=== PATIENT | male | born 1965 | race Caucasian/White ===

== ENCOUNTER 2016-08-08 02:16 | Emergency (ER) | payer OTHER, MEDICARE ==
[~2016-08-08] VITALS: Ht 157.5 cm; Wt 80.3 kg
--- NOTE | 2016-08-08 02:42 | ED GENERAL ADULT ---
History of Present Illness General Chief Complaint: General Adult Stated Complaint: "I WANT TO GET BLOOD TESTS FOR ALCOHOL AND DRUGS" Source: patient, friend Exam Limitations: no limitations Vital Signs & Intake/Output Vital Signs & Intake/Output Vital Signs Date Time Temp Pulse Resp B/P B/P Pulse O2 O2 Flow FiO2 Mean Ox Delivery Rate 08/08 0221 98.6 103 16 162/113 98 Room Air Allergies Coded Allergies: MDX - Ethanol (Ethanol) (UNKNOWN 04/12/11) ETOH MDX - Oxycodone (OXYCODONE) (MAKES ME WACKY 09/17/11) Triage Note: TRIAGE: PT WAS PULLED OVER TONIGHT AT A DWI CHECK AND WAS GIVEN A TICKET WITH A PROMISE TO APPEAR AND TOLD HE NEEDS PROOF THAT HE HAS NO ETOH OR DRUGS IN HIS SYSTEM. REPORTS OCT 12 1995 WAS HIS LAST DRINK. DENIES ILLICIT DRUG USE. ARRIVES HYPERTENSIVE IN TRIAGE. DENIES HEADACHE Triage Nurses Notes Reviewed? yes HPI: Patient was pulled over at [employer] stop. And failed the field sobriety test. Patient was put on a promise to appear. Patient states that he has not had an alcoholic drink since 1997. Patient presents to the emergency room requesting laboratory work up for drugs and alcohol. Patient states that he did not take his nighttime medications. Patient states that the last time his Depakote level was checked was a few months ago. He denies any headache or blurry vision. There is no nausea or vomiting. Patient has no current complaints. Past History Travel History Traveled to [place] past 21 day No Medical History Any Pertinent Medical History? see below for history Neurological: NONE EENT: NONE Cardiovascular: hypertension, hyperlipidemia Respiratory: NONE Gastrointestinal: NONE Hepatic: NONE Renal: NONE Musculoskeletal: NONE Psychiatric: bipolar disease Endocrine: NONE Blood Disorders: NONE Cancer(s): NONE Surgical History Surgical History: N Psychosocial History Who do you live with Significant Other Services at Home None What is your primary language Azeri Tobacco Use: Never used Family History Hx Contributory? No Review of Systems Review of Systems Constitutional: Reports: no symptoms. EENTM: Reports: no symptoms. Respiratory: Reports: no symptoms. Cardiovascular: Reports: no symptoms. GI: Reports: no symptoms. Genitourinary: Reports: no symptoms. Musculoskeletal: Reports: no symptoms. Skin: Reports: no symptoms. Neurological/Psychological: Reports: no symptoms. Hematologic/Endocrine: Reports: no symptoms. Immunologic/Allergic: Reports: no symptoms. All Other Systems: Reviewed and Negative Physical Exam Physical Exam General Appearance: well developed/nourished, alert, awake Head: atraumatic, normal appearance Eyes: Bilateral: PERRL, EOMI. Ears, Nose, Throat: normal pharynx, normal ENT inspection, hearing grossly normal Neck: normal inspection, supple, full range of motion Respiratory: normal breath sounds, chest non-tender, no respiratory distress, lungs clear Cardiovascular: regular rate/rhythm, normal peripheral pulses Gastrointestinal: normal bowel sounds, soft, non-tender, no organomegaly Back: normal inspection, normal range of motion Extremities: normal inspection, normal capillary refill, normal range of motion, no edema Neurologic/Psych: no motor/sensory deficits, awake, alert, oriented x 3, normal gait, normal mood/affect Skin: intact, normal color, warm/dry Lymphatic: no anterior cervical prabhjot Core Measures ACS in differential dx? No CVA/TIA Diagnosis: No Severe Sepsis Present: No Septic Shock Present: No Progress Differential Diagnoses I considered the following diagnoses in my evaluation of the patient: [Elevated Depakote level, hepatic encephalopathy] Plan of Care: Orders Procedure Date/time Status Add-on Test (ER Only) 08/08 0241 Active AMMONIA 08/08 0241 Complete DEPAKOTE LEVEL 08/08 225 Complete URINE DRUGS OF ABUSE 08/09 219 Complete ETHANOL 08/09 219 Complete Laboratory Tests 08/08/16 0248: Ammonia 28 08/08/16 0229: Urine Opiates Screen < 100.00, Methadone Screen < 40, Barbiturate Screen < 60, Ur Phencyclidine Scrn < 6.00, Amphetamines Screen 234, U Benzodiazepines Scrn < 85, Urine Cocaine Screen < 50, Urine Cannabis Screen < 5.00 08/08/16 0226: Valproic Acid 41.6 L, Serum Alcohol < 10.0 Initial ED EKG: none Departure Departure Disposition: HOME OR SELF CARE Condition: Stable Clinical Impression Primary Impression: Normal exam Secondary Impressions: Hypertension Referrals: KALANI KENNY APRN (PCP/Family) Additional Instructions: RETURN FOR ANY CONCERNS Departure Forms: Customer Survey General Discharge Information Critical Care Note Critical Care Note Critical Care Time: non-applicable
[2016-08-08 03:49] VITALS: BP 148/77
== END 2016-08-08 03:52 ==
LOC: ERH 02:16
DX: I10 Essential (primary) hypertension (principal); Z02.83 Encounter for blood-alcohol and blood-drug test
CPT/HCPCS: 80307; G0480

== ENCOUNTER 2017-05-29 13:54 | Emergency (ER) | payer OTHER, MEDICARE ==
[~2017-05-29] VITALS: Ht 157.5 cm; Wt 77.1 kg
[2017-05-29 14:18] VITALS: BP 136/92
--- NOTE | 2017-05-29 14:43 | ED GENERAL ADULT ---
History of Present Illness General Chief Complaint: General Adult Stated Complaint: MED REFILL Source: patient, old records Exam Limitations: no limitations Vital Signs & Intake/Output Vital Signs & Intake/Output Vital Signs Date Time Temp Pulse Resp B/P B/P Pulse O2 O2 Flow FiO2 Mean Ox Delivery Rate 05/29 1418 96.0 91 18 136/92 97 Room Air Allergies Coded Allergies: MDX - Ethanol (Ethanol) (UNKNOWN 04/12/11) ETOH MDX - Oxycodone (OXYCODONE) (MAKES ME WACKY 09/17/11) Triage Note: REQUESTING MED RE-FILL. DEPAKOTE 500 MG ER. Triage Nurses Notes Reviewed? yes Onset: Abrupt Duration: day(s): (2), constant, continues in ED Timing: single episode today Injury Environment: home Severity: mild, moderate No Modifying Factors: none HPI: 52-year-old male past medical history of hypertension and lipidemia bipolar disorder presents for a medication refill. Patient states that he ran out of his Depakote 1000 mg extended release that he takes once daily. His last dose was Tuesday so he missed one dose last night. He states that he has been in process of getting a hold of his doctor for refill but is been unable to contact them today because they are close on the weekends. He is requesting a dose be given to him today. He denies any suicidal or homicidal ideation. No paranoia or delusions. No hallucinations. He states his other medications as directed. Past History Travel History Traveled to [place] past 21 day No Medical History Any Pertinent Medical History? see below for history Neurological: NONE EENT: NONE Cardiovascular: hypertension, hyperlipidemia Respiratory: NONE Gastrointestinal: NONE Hepatic: NONE Renal: NONE Musculoskeletal: NONE Psychiatric: bipolar disease Endocrine: NONE Blood Disorders: NONE Cancer(s): NONE Surgical History Surgical History: N Psychosocial History Who do you live with Significant Other Services at Home None What is your primary language Lebanese Tobacco Use: Current Daily Use Daily Tobacco Use Amount/Type: => 5 Cigarettes daily Family History Hx Contributory? No Review of Systems Review of Systems Constitutional: Reports: no symptoms. EENTM: Reports: no symptoms. Respiratory: Reports: no symptoms. Cardiovascular: Reports: no symptoms. GI: Reports: no symptoms. Genitourinary: Reports: no symptoms. Musculoskeletal: Reports: no symptoms. Skin: Reports: no symptoms. Neurological/Psychological: Reports: no symptoms. Hematologic/Endocrine: Reports: no symptoms. Immunologic/Allergic: Reports: no symptoms. All Other Systems: Reviewed and Negative Physical Exam Physical Exam General Appearance: well developed/nourished, no apparent distress, alert, awake Head: atraumatic, normal appearance Eyes: Bilateral: normal appearance, PERRL, EOMI. Ears, Nose, Throat: normal pharynx, normal ENT inspection, hearing grossly normal Neck: normal inspection, supple, full range of motion Respiratory: normal breath sounds, chest non-tender, no respiratory distress, lungs clear Cardiovascular: regular rate/rhythm, normal peripheral pulses Peripheral Pulses: 2+ radial (R), 2+ radial (L) Gastrointestinal: soft, non-tender Back: normal inspection, normal range of motion Extremities: normal inspection, normal range of motion, no edema Neurologic/Psych: no motor/sensory deficits, awake, alert, oriented x 3, normal gait Skin: intact, normal color, warm/dry Lymphatic: no anterior cervical prabhjot Core Measures ACS in differential dx? No CVA/TIA Diagnosis: No Sepsis Present: No Sepsis Focused Exam Completed? No Progress Differential Diagnoses I considered the following diagnoses in my evaluation of the patient: [ Medication refill, bipolar disorder] Plan of Care: Current Medications Sig/Mary Start time Last Medication Dose Stop Time Status Admin Divalproex Sodium 1,000 MG ONCE ONE 05/29 144 UNVr (Depakote ER) 05/29 1446 Patient seen and evaluated. He reports he missed one dose of Depakote. He'll be given a dose in the ER. He declines additional prescription because he states he has no money to pay for it. Advised him to follow-up with his doctor tomorrow to get additional refills. Discussed return precautions patient agrees the plan. Initial ED EKG: none Departure Departure Disposition: HOME OR SELF CARE Condition: Stable Clinical Impression Primary Impression: Medication refill Referrals: Dayton Hurley APRN (PCP/Family) Additional Instructions: Follow-up with [facility] psychiatrist as soon as possible. Monitor symptoms return with any concerns Departure Forms: Customer Survey General Discharge Information Critical Care Note Critical Care Note Critical Care Time: non-applicable
== END 2017-05-29 14:54 ==
LOC: ERH 13:54
DX: Z76.0 Encounter for issue of repeat prescription (principal)
CPT/HCPCS: 99281

== ENCOUNTER 2017-07-15 08:48 | Inpatient (IN) | payer OTHER, MEDICARE ==
[~2017-07-15] VITALS: Ht 154.9 cm; Wt 72.1 kg
--- NOTE | 2017-07-15 10:45 | ED PSYCHIATRIC COMPLAINT ---
History of Present Illness General Chief Complaint: Psychiatric Related Complaint Stated Complaint: "I was told I need an evaluation" Source: patient, old records Exam Limitations: no limitations Vital Signs & Intake/Output Vital Signs & Intake/Output Vital Signs Date Time Temp Pulse Resp B/P B/P Pulse O2 O2 Flow FiO2 Mean Ox Delivery Rate 07/15 1427 98.2 95 20 139/92 98 Room Air 07/15 1123 97.8 96 20 143/92 98 Room Air 07/15 0856 97.8 113 20 157/91 99 Room Air Allergies Coded Allergies: oxycodone (MAKES ME WACKY 07/15/17) Uncoded Allergies: ETHANOL (UNKNOWN 07/15/17) Reconcile Medications Amlodipine Besylate 5 MG TABLET 1 TAB PO DAILY HEART (Reported) Divalproex Sodium (Divalproex Sodium ER) 500 MG TAB.ER.24H 2 TAB PO QPM MOOD STABILITY (Reported) Fenofibrate Nanocrystallized (Fenofibrate) 145 MG TABLET 1 TAB PO DAILY CHOLESTEROL (Reported) Hydrochlorothiazide 50 MG TABLET 1 TAB PO DAILY BP (Reported) Montelukast Sodium 10 MG TABLET 1 TAB PO DAILY ALLERGIES (Reported) Risperidone 2 MG TABLET 1 TAB PO BID MENTAL HEALTH (Reported) Triage Note: PT PRESENTS TO ER FROM [facility] STATING HE WAS THERE TO GET "SOME BUSINESS TAKEN CARE OF" THE PROVIDER THERE FELT "THAT MY MEDS WERE OFF AND SENT ME HERE. I DON'T AGREE I FEEL FINE." PT DENIES FEELING SI OR HI. PT STATES I HAVE BEEN COMPLAINT WITH MY MEDS BUT THE LADY I SAW AT [facility]ARE FELT I NEEDED TO COME IN FOR HELP AND GET EVALUATED. PT DENIES FEELING DEPRESSED OR HAVING ANY COMPLAINTS. Triage Nurses Notes Reviewed? yes Onset: Just prior to arrival Duration: continues in ED Timing: recent history Severity: mild Associated Symptoms: anxiety HPI: Patient reports increased stressors over the last 2 weeks with of his father and his common-law . Prior to admission he was referred by [facility] for psychiatric evaluation. He denies fever chills nausea vomiting diarrhea abdominal pain chest pain shortness breath headache dysuria rash bleeding suicidal ideation homicidal ideation hallucination anorexia insomnia anhedonia. Past History Travel History Traveled to [place] past 21 day No Medical History Any Pertinent Medical History? see below for history Neurological: NONE EENT: NONE Cardiovascular: hypertension, hyperlipidemia Respiratory: NONE Gastrointestinal: NONE Hepatic: NONE Renal: NONE Musculoskeletal: NONE Psychiatric: bipolar disease Endocrine: NONE Blood Disorders: NONE Cancer(s): NONE Surgical History Surgical History: N Psychosocial History Who do you live with Significant Other Services at Home None What is your primary language Rwandan Tobacco Use: Current Daily Use Daily Tobacco Use Amount/Type: => 5 Cigarettes daily ETOH Use: denies use Illicit Drug Use: denies illicit drug use Family History Hx Contributory? No Review of Systems Review of Systems Constitutional: Reports: no symptoms. EENTM: Reports: no symptoms. Respiratory: Reports: no symptoms. Cardiovascular: Reports: no symptoms. GI: Reports: no symptoms. Genitourinary: Reports: no symptoms. Musculoskeletal: Reports: no symptoms. Skin: Reports: no symptoms. Neurological/Psychological: Reports: see HPI, anxiety. Hematologic/Endocrine: Reports: no symptoms. Immunologic/Allergic: Reports: no symptoms. All Other Systems: Reviewed and Negative Physical Exam Physical Exam General Appearance: well developed/nourished, alert, awake, anxious, comfortable Head: atraumatic, normal appearance Eyes: Bilateral: normal appearance, PERRL, EOMI. Ears, Nose, Throat: normal pharynx, normal ENT inspection, hearing grossly normal Neck: normal inspection, supple, full range of motion, no midline tenderness Respiratory: normal breath sounds, chest non-tender, no respiratory distress, quiet respiration, lungs clear Cardiovascular: regular rate/rhythm, normal peripheral pulses, norml femoral pulses equa Gastrointestinal: normal bowel sounds, soft, non-tender, no organomegaly Extremities: normal range of motion, no ligament instability Neurological/Psychiatric: no motor/sensory deficits, awake, alert, anxious, tinter photograph II-XII nml as tested, oriented x 3 Appearance/Memory/Insight: disheveled Behavoir/Eye Contact/Speech: cooperative, increased rate of speech, good eye contact Thoughts/Hallucinations: no apparent hallucination Skin: intact, normal color, warm/dry SAD PERSONS Done? patient not suicidal Progress Differential Diagnosis: drug intoxication, drug overdose, drug withdrawal, electrolyte abnormality, hypoglycemia Plan of Care: Orders Procedure Date/time Status VALPROIC ACID 07/18 0600 Active POTASSIUM 07/16 0600 Active Regular Diet 07/15 L Complete Regular Diet 07/15 D Active Lab Add-on Test 07/15 1540 Active Lab Add-on Test 07/15 1539 Active Lab Add-on Test 07/15 1537 Active Patient Data - inpatient psych 07/15 1529 Active Admit to inpatient psych 07/15 1529 Active Add-on Test (ER Only) 07/15 1302 Active DEPAKOTE LEVEL 07/15 1145 Complete AMYLASE 07/15 1145 Complete URINE DRUG SCREEN FOR ER ONLY 07/15 1034 Complete ETHANOL 07/15 1034 Complete COMPREHENSIVE METABOLIC PANEL 07/15 1034 Complete CBC WITHOUT DIFFERENTIAL 07/15 1034 Complete ED CRISIS PSYCH CONSULT 07/15 1034 Active Vital Signs 07/15 UNK Active Nursing Misc 07/15 UNK Active Alternative Nursing Therapy 07/15 UNK Active Activity/Ambulation 07/15 UNK Active Current Medications Sig/Mary Start time Last Medication Dose Stop Time Status Admin Amlodipine Besylate 5 MG DAILY 07/16 09 UNVr (Norvasc) Fenofibrate 145 MG DAILY 07/16 899 UNVr (Tricor) Hydrochlorothiazide 50 MG DAILY 07/16 899 UNVr (Hydrodiuril) Risperidone 2 MG DAILY 07/16 899 UNVr (Risperidone) Divalproex Sodium 1,000 MG AT BEDTIME 07/15 2100 UNVr (Depakote ER) Montelukast Sodium 10 MG AT BEDTIME 07/15 2100 UNVr (Singulair) Risperidone 3 MG AT BEDTIME 07/15 2100 UNVr (risperiDONE) Acetaminophen 650 MG Q6P PRN 07/15 1530 UNVr (Tylenol) Al Hydroxide/Mg 30 ML Q4-6 PRN PRN 07/15 1530 UNVr Hydroxide (Maalox Plus) Benztropine Mesylate 1 MG Q6P PRN 07/15 1530 UNVr (Cogentin 1 MG Tablet) Benztropine Mesylate 1 MG Q6P PRN 07/15 1530 UNVr (Cogentin) Gabapentin 300 MG Q6P PRN 07/15 1530 UNVr (Neurontin) Haloperidol 5 MG Q6P PRN 07/15 1530 UNVr (Haldol) Haloperidol 5 MG Q6P PRN 07/15 1530 UNVr (Haldol) Lorazepam 2 MG Q6P PRN 07/15 1530 UNVr (Ativan) Magnesium Hydroxide 30 ML AT BEDTIME PRN 07/15 1530 UNVr (Milk Of Magnesia) Trazodone HCl 50 MG AT BEDTIME NEED.. 07/15 1530 UNVr (Desyrel) Laboratory Tests 07/15/17 1145: Anion Gap 14, Estimated GFR > 60, BUN/Creatinine Ratio 7.0, Glucose 119 H, Calcium 10.7 H, Total Bilirubin 0.4, AST 52, ALT 42, Alkaline Phosphatase 46, Total Protein 7.4, Albumin 4.5, Globulin 2.9, Albumin/Globulin Ratio 1.6, Amylase 69, CBC w Diff NO MAN DIFF REQ, RBC 4.97, MCV 85.0, MCH 29.6, MCHC 34.8, RDW 13.7, MPV 8.7, Gran % 64.7, Lymphocytes % 24.4, Monocytes % 7.5, Eosinophils % 2.7, Basophils % 0.7, Absolute Granulocytes 5.0, Absolute Lymphocytes 1.9, Absolute Monocytes 0.6, Absolute Eosinophils 0.2, Absolute Basophils 0.1, Valproic Acid 24.0 L, Serum Alcohol < 10.0 07/15/17 1039: Urine Opiates Screen < 100, Methadone Screen < 40, Barbiturate Screen < 60, Ur Phencyclidine Scrn < 6.00, Amphetamines Screen < 100, U Benzodiazepines Scrn < 85, Urine Cocaine Screen < 50, Urine Cannabis Screen < 5.00 Departure Departure Time of Disposition: 1722 Disposition: STILL A PATIENT Condition: Fair Clinical Impression Primary Impression: Bipolar disorder current episode depressed Referrals: Dayton Hurley APRN (PCP/Family) Departure Forms: Customer Survey General Discharge Information Psych Admission Note Psychiatric Admission: I have seen and evaluated MAYNOR LOU. I have also reviewed all the pertinent lab results and diagnostic results. MAYNOR LOU will be admitted to our inpatient Psychiatric unit for treatment and care.
[2017-07-15] MEDS ORDERED: HYDROCHLOROTHIA50 M1 PO (10:48)
[2017-07-15] MEDS ORDERED: DIVALPROEX SOD500 M3 PO (10:49)
[2017-07-15] MEDS ORDERED: AMLODIPINE BESYL5 M1 PO (10:49)
[2017-07-15] MEDS ORDERED: FENOFIBRATE145 M1 PO (10:49)
[2017-07-15] MEDS ORDERED: MONTELUKAST SOD10 M1 PO (10:49)
[2017-07-15] MEDS ORDERED: RISPERIDONE2 M1 PO (10:50)
[2017-07-15 11:52] LABS: ABSOLUTE BASOPHIL COUNT 0.1 /CUMM (0.0-0.2); ABSOLUTE EOSINOPHIL COUNT 0.2 /CUMM (0.0-0.7); ABSOLUTE LYMPH COUNT 1.9 /CUMM (1.2-3.4); ABSOLUTE MONOCYTE COUNT 0.6 /CUMM (0.10-0.60); BASOPHIL % 0.7 % (0.0-2.0); EOSINOPHIL % 2.7 % (0-5); GRANULOCYTE % 64.7 % (42.2-75.2); HEMATOCRIT 42.2 % (42-52); MEAN CORPUSCULAR HGB 29.6 PG (27.0-31.0); MEAN CORPUSCULAR HGB CONC 34.8 G/DL (33.0-37.0); MEAN PLATELET VOLUME 8.7 FL (7.4-10.4); PLATELET COUNT 343 /CUMM (130-400); RBC DISTRIBUTION WIDTH 13.7 % (11.5-14.5); RED BLOOD CELL CT 4.97 /CUMM (4.70-6.10); WHITE BLOOD CELL COUNT 7.8 /CUMM (4.8-10.8)
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
[2017-07-15 20:42] VITALS: BP 126/79
[2017-07-16 08:56] VITALS: BP 128/89
--- NOTE | 2017-07-16 10:52 | CPS PROVIDER INIT ASMT PSYCH ---
Psychiatric Admission Lacing Operator's Note Reviewed: Yes Patient Seen and Examined: Yes Identifying Information: 52yoM with hx of bipolar disorder Chief Complaint: "the world at large is not too great....I need to be free" Reaction to Hospitalization: positive History of Present Illness Onset of Illness: years ago Circumstances Leading to Admission: medication noncompliance Problem(s) Justifying Need for Admission: worsening mood Other HPI: Pt could not give a coherent account of circumstances leading up to admission. He believes that "someone" thinks he is acting strangely but disagrees. Very focused on "bag of pills" that is somewhere in the hospital as well as seasonal allergies. Denies SI or HI. Past Psychiatric History Past Diagnosis(es)- if any: Bipolar disorder Past Precipitating Factors- if any: medication noncompliance - Include inpatient and outpatient treatment Treatment History: multiple inpt hospitalizations History of Suicide Attempts or Gestures "many times" per pt Substance Abuse History: Tobacco: smokes 16oz tobacco daily, rolls own Alcohol: "not for years" Illicits: mj, cocaine, heroin "in the 80s" Allergies: Coded Allergies: oak (Severe, ANAPHYLAXIS 07/15/17) tree and shrub pollen (Severe, DIFFICULTY BREATHING 07/15/17) oxycodone (MAKES ME WACKY 07/15/17) Uncoded Allergies: ETHANOL (UNKNOWN 07/15/17) Home Med List: see H&P - Include any medical condition(s) that may - impact the patient's recovery/remission Past Medical History: see H&P Past History Medical History Neurological: NONE EENT: allergies Cardiovascular: hypertension, hyperlipidemia Respiratory: CIGARETTE SMOKER Gastrointestinal: NONE Hepatic: NONE Renal: NONE Musculoskeletal: chronic back pain, osteoarthritis Psychiatric: alcohol dependence, bipolar disease Endocrine: NONE Blood Disorders: NONE Cancer(s): NONE 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 History of MRSA: No History of VRE: No History of CDIFF: No Isolation History: Standard Surgical History Surgical History: non-contributory Psychiatric Family/Social Hx Family History Psychiatric Illness: pt adopted Substance Use: adopted Suicides: adopted Social History Living Situation: lives with mother Significant Relationships (family/friends): ?mother Education: HS graduate Vocation/Occupation: disabled/unemployed Legal: denied current Healthly Behaviors Screening Tobacco Screening Tobacco Use from ED Docu: Current Daily Use Daily Tobacco Use Amount/Type: => 5 Cigarettes daily - If tobacco counseling indicated - the following topics are required. - #1 Recognizing dangerous situations. - #2 Coping Skills. - #3 Basic information about quitting. Status of Tobacco Cessation Counseling: #1, #2 AND #3 Completed Cessation Med Status Nicotine Patch Ordered (pt notes may refuse patch) Alcohol Screening - ETOH screen POS if BAL >=80 or Audit-C>= M4/F3 Audit-C Score from Diag Assess: 0 Blood Alcohol Level: Laboratory Tests 07/15 1145 Toxicology Serum Alcohol (<10 MG/DL) < 10.0 Alcohol Use Screening Results: Neg per Audit C &/or BAL - If ETOH counseling indicated - the following topics are required. - #1 Express concern about the patient's - drinking at unhealthy levels, include informing - of national norms for moderate drinking: - men <= 14 drinks/week, max 4 drinks/occasion - women <= 7 drinks/week, max 3 drinks/occasion - #2 Providing feedback, including linking alcohol to - negative physical effects (liver injury, hypertension) - negative emotional effects (relationship problems and - depression) - negative occupational consequences (reduced work - performance) - #3 Advising the patient to abstain from alcohol or - to drink below national norms for moderate drinking - (as listed above). Status of ETOH Use Counseling: N/A B/C NO ETOH Use Metabolic Screening - Screen if on a Neuroleptic Medication - Metabolic screening should include: - Blood Pressure, BMI, Glucose or Hgb A1c, & a - Lipid profile from within the past 365 days. Metabolic Screening Laboratory Tests 07/16 07/15 07/15 0614 1145 1039 Chemistry Sodium (137 - 145 mmol/L) 144 Potassium (3.5 - 5.1 mmol/L) 3.3 L 3.2 L Chloride (98 - 107 mmol/L) 102 Carbon Dioxide (22 - 30 mmol/L) 28 Anion Gap (5 - 16) 14 BUN (9 - 20 mg/dL) 7 L Creatinine (0.7 - 1.2 mg/dL) 1.0 Estimated GFR (>60 ml/min) > 60 BUN/Creatinine Ratio (7 - 25 %) 7.0 Glucose (65 - 99 mg/dL) 119 H Calcium (8.4 - 10.2 mg/dL) 10.7 H Total Bilirubin (0.2 - 1.3 mg/dL) 0.4 AST (17 - 59 U/L) 52 ALT (21 - 72 U/L) 42 Alkaline Phosphatase (< 127 U/L) 46 Total Protein (6.3 - 8.2 g/dL) 7.4 Albumin (3.5 - 5.0 g/dL) 4.5 Globulin (1.9 - 4.2 gm/dL) 2.9 Albumin/Globulin Ratio (1.1 - 2.2 %) 1.6 Amylase (30 - 110 U/L) 69 Hematology CBC w Diff NO MAN DIFF REQ WBC (4.8 - 10.8 /CUMM) 7.8 RBC (4.70 - 6.10 /CUMM) 4.97 Hgb (14.0 - 18.0 G/DL) 14.7 Hct (42 - 52 %) 42.2 MCV (80.0 - 94.0 FL) 85.0 MCH (27.0 - 31.0 PG) 29.6 MCHC (33.0 - 37.0 G/DL) 34.8 RDW (11.5 - 14.5 %) 13.7 Plt Count (130 - 400 /CUMM) 343 MPV (7.4 - 10.4 FL) 8.7 Gran % (42.2 - 75.2 %) 64.7 Lymphocytes % (20.5 - 51.1 %) 24.4 Monocytes % (1.7 - 9.3 %) 7.5 Eosinophils % (0 - 5 %) 2.7 Basophils % (0.0 - 2.0 %) 0.7 Absolute Granulocytes (1.4 - 6.5 /CUMM) 5.0 Absolute Lymphocytes (1.2 - 3.4 /CUMM) 1.9 Absolute Monocytes (0.10 - 0.60 /CUMM) 0.6 Absolute Eosinophils (0.0 - 0.7 /CUMM) 0.2 Absolute Basophils (0.0 - 0.2 /CUMM) 0.1 Toxicology Urine Opiates Screen (>2000 NG/ML) < 100 Methadone Screen (>300 NG/ML) < 40 Barbiturate Screen (>200 NG/ML) < 60 Valproic Acid (50 - 120 ug/mL) 24.0 L Ur Phencyclidine Scrn (>25 NG/ML) < 6.00 Amphetamines Screen (>1000 NG/ML) < 100 U Benzodiazepines Scrn (>200 NG/ML) < 85 Urine Cocaine Screen (>300 NG/ML) < 50 Urine Cannabis Screen (>50 NG/ML) < 5.00 Serum Alcohol (<10 MG/DL) < 10.0 Exam and Plan Mental Status Examination Ambulation Status: walking freely Appearance: dishelved Attitude towards examiner: hostile Psychomotor activity: + agitation Behavior: uncooperative for most of interview Quality of speech: nl r/r/s/p Affect: extremely irritable, labile, inapp Mood: "nothing is wrong with me!" Suicidal Ideation: denied Homicidal Ideation: denied Hallucinations: denied Paranoid/Delusional Material: ++ around meds Difficulties with thought organization: bizzare, disorganized Insight: very poor Judgment: very poor Orientation: a/o x4 Cognition: grossly intact Memory Function: grossly intact Estimate of intellectual functioning: below average/average Assets/Strengths Patient Identified Assets/Strengths: able to communicate, ?some family support Impression/Plan Impression and Plan: Pt with long hx of bipolar disorder now with decompensation in the setting of medication noncompliance. - Include all active medical diagnosis that require tx DSM 5 Diagnosis(es): Bipolar disorder - Initial Tx Plan for Active Psych & Medical Conditions Treatment Plan: Increased risperidone to 2mg in the morning and 3mg at bedtime, pt is in agreement with this Increase depakote ER to 1250mg Started loratidine for seasonal allergies For hypokalemia, pt refusing med at this time, wants to eat bananas instead, will recheck K at AM; pt at home eats bananas to manage his chronic hypolamemia. - Factors that would help patient function - in a less restrictive setting. Factors: medication compliance
[2017-07-16 12:24] VITALS: BP 140/69
--- NOTE | 2017-07-16 15:06 | SOCIAL WORKER SOCIAL HX PSYCH ---
Social History Basic Assessment Insurance Authorization: Insurance #1: Insurance name: MEDICARE A Phone number: Policy number: [id number] Group number: Authorization number: Curr Source of Income/Entitlements: [facility] Primary Care Physician: Patient's PCP: Dayton Hurley APRN PCP's Present Problem: Present problem taken from [facility] on 07/15/17: Patient is a 52 year old unmarried male who was coaxed to come to [facility] on his own, following a discussion with his counselor, Adrianne Persaud, at [facility] this morning. Patient had seen same counselor earlier in week, and counselor indicated that patient was " acting extremely paranoid and guarded, and stating that government was going to use his social security money, and he would not get his monthly check". Patient stated that he "was tricked into coming here" to the hospital. He seemed angry with [facility], and insists that he is doing fine. Patient presents as very pressured and mildly irritable, but trying to be cooperative. Patient reports that he has had considerable stress lately as his father 2 weeks ago; his common law of 20 years within the past year, and he has to move yet again as his mother will be needing 24 hour care and will require placement. Patient is hopeful that he will obtain housing from [employer], but stated that they "were playing games" with him, and saying his application was sent in too late. Patient is very guarded and suspicious. Patient was very pre-occupied with getting his social security check, and appeared to think that there was a plan that would stop him from getting his check. Patient reportedly had been doing fairly well until recently. [facility] report that his sister had let them know that he has been seen sitting and staring watchfully in his car. Family is reportedly concerned about him. Patient's sister states that patient seems to have problems at about this time of year, and that he becomes very unpredictable. Patient is living with 90 year old mother who has Parkinson, and mother is fearful about patient's unpredictability. Sister states that patient has been obsessing about getting sufficient gasoline and batteries to be prepared, and she maintainds that these behaviors are beginning of decompensation, and this has often resulted in injury as patient resists help. Patient has been calling sister at all hours, even at 1;30 a.m. to state that he was going to check on his mother. Behavior has been disorganized. Patient was informed that his Depakote level was quite low, and asked if he was interested in having it ordered for him, but patient became upset, insisting that he "was good" and did not want any more of that (medication). Patient is seen for anger management issues at [facility]. he staff there, as well as his sister Do, fear that patient will get angry and hurt himself or someone else by his resistence. 07/16/17 - Crisis met with pt to complete social history. He complained of back pain and was unable to get out of bed, so crisis met with pt in his bedroom. Pt questioned when he would be able to leave and asked "when will my sister be satisfied with my diagnosis?. Pt denies SI/HI at this time. He appeared to be somewhat paranoid and spoke about the government being out to get him. Primary Language? Bruneian Language(s) Spoken At Home: Bruneian Living Situation Rents or Owns Home? rents (lives with mom ) Other Living Arrangement: pt lives with his mother Residential Care/Treatment Fac n/a Feel Safe Where You Are Living Yes Feel Safe in Relationships? Yes Allergies - Coded Allergies: oak (Severe, ANAPHYLAXIS 07/15/17) tree and shrub pollen (Severe, DIFFICULTY BREATHING 07/15/17) oxycodone (MAKES ME WACKY 07/15/17) Uncoded Allergies: ETHANOL (UNKNOWN 07/15/17) Current Medications - Scheduled Medications Amlodipine Besylate 5 MG TABLET 1 TAB PO DAILY HEART #30 (Reported) Entered as Reported by Moris Alfaro on 07/15/17 1049 Divalproex Sodium (Divalproex Sodium ER) 500 MG TAB.ER.24H 2 TAB PO QPM MOOD STABILITY #60 (Reported) Entered as Reported by Moris Alfaro on 07/15/17 1049 Fenofibrate Nanocrystallized (Fenofibrate) 145 MG TABLET 1 TAB PO DAILY CHOLESTEROL #90 (Reported) Entered as Reported by Moris Alfaro on 07/15/17 1049 Hydrochlorothiazide 50 MG TABLET 1 TAB PO DAILY BP #30 (Reported) Entered as Reported by Moris Alfaro on 07/15/17 1048 Montelukast Sodium 10 MG TABLET 1 TAB PO DAILY ALLERGIES #90 (Reported) Entered as Reported by Moris Alfaro on 07/15/17 1049 Risperidone 2 MG TABLET 1 TAB PO BID MENTAL HEALTH #45 (Reported) Entered as Reported by Moris Alfaro on 07/15/17 1050 Last Taken: At an unknown date and time Consequences of Psych Med Use: none reported Past History Past Medical History Neurological: NONE EENT: allergies Cardiovascular: hypertension, hyperlipidemia Respiratory: CIGARETTE SMOKER Gastrointestinal: NONE Hepatic: NONE Renal: NONE Musculoskeletal: chronic back pain, osteoarthritis Psychiatric: alcohol dependence, bipolar disease Endocrine: NONE Blood Disorders: NONE Cancer(s): NONE 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 Primary Childhood Caretakers: father, mother, step-parent (adoptive) Family Life During Childhood: "great, I was blessed with good parents" DCF Involvement? No Mother's Age (Current/): 77 Relationship w/Mother: "good" Father's Age (Current/): 77 () Relationship w/Father: "we didn't talk much, but we loved eachother". Any Sibling(s)? Yes Sibling's Gender(s)/Age(s): male Sibling 1:, male Sibling 2:, female Sibling 3: Relationship w/Sibling(s): "good" Relationship w/Friends: "we go to AA meetings together" Family Psych/Sub Abuse/Add Hx: unknown Abuse/Trauma History Trauma History/Current Trauma: Denies History of Trauma/Abuse Treatment? No Abuse/Trauma Treatment: n/a Legal History Legal Guardian/Address/Phone: n/a Current Legal Status: none Pending Court Dates: none reported Have you ever been arrested Yes Number of Arrests: 6 (reports over 5 arrests) Hx of Juvenile Legal Charges? No Hx of Adult Legal Charges? Yes If Yes: misdemeanor, felony List/Date Most Recent Lgl Chgs: pt unable to identify charges Chgs/Dts/Incarcerations/Sentnc pt reports he was incarcerated 2 years ago and about 20 years ago, before he got sober. Civil Proceedings: none reported Domestic Relations Court: none reported Child Protective Serv Involvmnt none reported. Eviscerator none Psychosocial History Primary Support System: mother Strengths/Capabilities: patient has maintained sobriety for many years, and is active in AA Patient has been stable throughout most of past year. Weaknesses: Pt seems to be a poor historian. Physical Limitations (Interventions): none noted Last Physical: 6 months ago History of Seizures? No History of Blackouts? No ADL Limitations: none reported Sabael/Social/Peer Relations Pt reports his friends are the people to attneds AA meetings with. They enjoy going to meetings together and hanging out after the meetings. Pt also reports he likes fishing and hunting, although reports he cannot huggins anymore because "the government doesnt want me to have a gun". Meaningful Activities: going to AA meetings, hunting, fishing Childhood Buddhism: pt reports he is "very spiritual" but does not identify with a specific faith because "all religions are always at war with eachother" Current Mu-Ism Affiliation: pt reports he is spiritual Is Spirituality Important to You? yes Patient's Ethnicity: (Khmer), Estonian Cultural/Ethnic Issues: none reported Are There Developmental Issues? Yes If Yes, Explain: learning troubles Milestones Achieved: fine motor, gross motor Psychiatric Treatment History Psych Treatment Inpatient Treatment Yes Outpatient Treatment Yes Location of Treatment [facility]; and [facility] Reason for Treatment bipolar disorder Dates of Treatment past 15 years Response to Treatment has needed stabilization at times, and has responded fairly well. 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 Psychodynamic Issues: none reported Risk Factors: high anxiety/distress, history of Violence, poor impulse control, male Substance Use/Abuse History Drug Use/Abuse:Min 12 mo hx Substance Used/Abused Alcohol First Use 19 y o Last Used more than 21 years ago How much used/taken varied How often many times/wk For how long 8-10 years Route of use p.o. Have Had Periods of Sobriety? Yes Explain: Sober 21 years Relapse History? Yes Explain: sober for 21 years Have You Ever Attended AA? Yes Do You Attend AA Currently? Yes Do You Have a Sponsor? Yes Other Community Resources Used: none reported Symptoms of Use: sober x 21 years Substance Abuse Treatment Substance Abuse Treatment Inpatient Treatment Yes Outpatient Treatment Yes Location of Treatment [facility] Reason for Treatment alcohol dependence Dates of Treatment 1990s Response to Treatment good sober many years Sexual History Sexually Active No # of partners 0 Sexual Orientation Heterosexual Sexual Concerns: Pt reports he is not in a relationship and does not wish to ever be. Education History Highest Level of Education: high school/GED Highest Grade Completed: 12th Vocational Year Completed: n/a Number of College Years: 0 College Degree/Major: n/a Other Degree(s): n/a Preferred Learning Style: experiential HX of Learning Difficulties: Learning Disabilities Barriers to Learning: pt reports trouble in school with reading and learning. He reports he was unable to focus in school and did not receive help from teachers. 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 of Jobs in Last 5 Years: 0 Attendance: unknown Performance: Average History Have You Been in The ? No If Yes, Explain: n/a Type of Discharge: n/a Date of Discharge: n/a Current Mental Status Mental Status Orientation: Confused, Person, Place, Situation Affect: Anxious, Constricted, Inappropriate Speech: Evasive, Pressured Neuro-vegetative: WNL Appearance Appearance- Dress/Hygiene: clean shaven and well groomed Behaviors Thought Process: Irrational Thought Content: Paranoid Memory: WNL Insight: Poor SI/HI Risk Assessment Past Suicidal Ideation/Attempts No Current Suicidal Ideation/Att No Past Homicidal Ideation/Att: No Current Homicidal Ideation/Attempts No Degree of Intent: None Gravely Disabled: Lack of Insight, Poor Judgment Risk Factors: High Anxiety/Distress, Male, Poor impulse control Lethality Ratin (mild) - Conclusion and Recommendations for treatment - and discharge planning Summary: 07/16/17 - Crisis met with pt to complete social history. He complained of back pain and was unable to get out of bed, so crisis met with pt in his bedroom. Pt questioned when he would be able to leave and asked "when will my sister be satisfied with my diagnosis?. Pt denies SI/HI at this time. He appeared to be somewhat paranoid and spoke about the government being out to get him.
[2017-07-16 16:17] VITALS: BP 118/74
--- NOTE | 2017-07-16 18:54 | History & Physical ---
General Information and HPI History of Present Illness: Mr. Lindsey is a 52 y/o male with history of hypertension, dyslipidemia presents for evaluation - referred by [facility]. Apparently the patient was acting extremely paranoid and guarded and had hallucinations and he would not get his monthly check because the government was called he uses Social Security money. The patient did not want once any questions and mentions that he has only psychiatric issues and no internal medicine issues and his "internal" is perfectly fine. Allergies/Medications Allergies: Coded Allergies: oak (Severe, ANAPHYLAXIS 07/15/17) tree and shrub pollen (Severe, DIFFICULTY BREATHING 07/15/17) oxycodone (MAKES ME WACKY 07/15/17) Uncoded Allergies: ETHANOL (UNKNOWN 07/15/17) Home Med list Amlodipine Besylate 5 MG TABLET 1 TAB PO DAILY HEART (Reported) Divalproex Sodium (Divalproex Sodium ER) 500 MG TAB.ER.24H 2 TAB PO QPM MOOD STABILITY (Reported) Fenofibrate Nanocrystallized (Fenofibrate) 145 MG TABLET 1 TAB PO DAILY CHOLESTEROL (Reported) Hydrochlorothiazide 50 MG TABLET 1 TAB PO DAILY BP (Reported) Montelukast Sodium 10 MG TABLET 1 TAB PO DAILY ALLERGIES (Reported) Risperidone 2 MG TABLET 1 TAB PO BID MENTAL HEALTH (Reported) Past History Travel History Traveled to [place] past 21 day No Medical History Neurological: NONE EENT: allergies Cardiovascular: hypertension, hyperlipidemia Respiratory: CIGARETTE SMOKER Gastrointestinal: NONE Hepatic: NONE Renal: NONE Musculoskeletal: chronic back pain, osteoarthritis Psychiatric: alcohol dependence, bipolar disease Endocrine: NONE Blood Disorders: NONE Cancer(s): NONE 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 Cardiovascular: Reports: no symptoms. Respiratory: Reports: no symptoms. Comments Unable to obtain complete review of systems as patient is not willing to answer any specific questions. Mentions that he is perfectly fine Exam & Diagnostic Data Last 24 Hrs of Vital Signs/I&O Vital Signs Date Time Temp Pulse Resp B/P B/P Pulse O2 O2 Flow FiO2 Mean Ox Delivery Rate 07/16 1954 99.0 88 113/71 07/16 1617 86 118/74 07/16 1224 96 140/69 07/16 1048 97.3 85 18 128/89 07/16 0856 97.3 85 128/89 07/15 2042 98.2 85 18 126/79 Intake & Output 07/16 1600 07/16 0800 07/16 0000 Intake Total Output Total Balance Patient 159 lb Weight Assessment/Plan Assessment: Mr. Lindsey is a 52 y/o male with history of hypertension, dyslipidemia, asthma presents for evaluation - referred by care. 1. Bipolar disorder - depressed 2. Hypertension 3. Asthma 4. Alcohol use disorder 5. Hypokalemia - replace and repeat BEP in AM 6. Dyslipidemia - continue with home medications As Ranked By This Provider Problem List: 1. Bipolar disorder 2. History of - schizophrenia 3. Hypertension Core Measures/Misc (10/31) Acute Coronary Syndrome ACS Diagnosis: No Congestive Heart Failure Congestive Heart Failure Diagnosis No Cerebrovascular Accident CVA/TIA Diagnosis: No VTE (View Protocol) VTE Risk Factors No risk factors No Mechanical VTE Prophylaxis d/t LowRisk-No Interven Req'd No VTE Pharm Prophylaxis d/t LowRisk-No Interven Req'd Sepsis (View protocol) Sepsis Present: No If YES complete Sepsis Event Note If YES complete Sepsis Event Note
[2017-07-16 19:55] VITALS: BP 113/71
[2017-07-17 07:40] VITALS: BP 122/85
--- NOTE | 2017-07-17 10:57 | CP SOUTH PROGRESS NOTE PSYCH ---
Psych (Inpt) Progress Note Progress Note Include the following elements, when applicable: Involvement in the active treatment of the patient with behavioral observations of the patient and the patient's response to the treatment. Review of the ongoing treatment process in the context of the treatment plan. Indication of how multi-disciplinary staff members are carrying out the treatment plan. Plans for future interventions and recommendations for revision of the treatment plan. Liaison with other physicians/providers. Progress Note: Pt reports feeling better but still with difficulty "thinking." He spoke at length about his father anuresym that ultimately lead to his . Pt is concerned that his will happen to him. After interview, pt gave this provider a document entitled living will that was hand written. It was given to RNs to place in his chart. Pt detailed his wishes if has similar medical issues to his father. Thinks that risperidone 3mg is helpful. Denies SI or HI. Current Medications Sig/Mary Start time Last Medication Dose Route Stop Time Status Admin Acetaminophen 650 MG Q6P PRN 07/15 1530 AC PO Al Hydroxide/Mg 30 ML Q4-6 PRN PRN 07/15 1530 AC Hydroxide PO Amlodipine Besylate 5 MG DAILY 07/16 0900 AC 07/17 PO 0844 Benztropine Mesylate 1 MG Q6P PRN 07/15 1530 AC PO Benztropine Mesylate 1 MG Q6P PRN 07/15 1530 AC IM Divalproex Sodium 1,250 MG AT BEDTIME 07/16 2100 AC 07/16 PO 2209 Fenofibrate 145 MG DAILY 07/16 0900 AC 07/17 PO 0844 Gabapentin 300 MG Q6P PRN 07/15 1530 AC PO Haloperidol 5 MG Q6P PRN 07/15 1530 AC PO Haloperidol 5 MG Q6P PRN 07/15 1530 AC IM Hydrochlorothiazide 50 MG DAILY 07/16 0900 AC 07/17 PO 0844 Loratadine 10 MG DAILY 07/16 1048 AC 07/16 PO 07/18 0901 1048 Lorazepam 2 MG Q6P PRN 07/15 1530 AC IM Magnesium Hydroxide 30 ML AT BEDTIME PRN 07/15 1530 AC PO Montelukast Sodium 10 MG AT BEDTIME 07/15 2100 AC 07/16 PO 2211 Nicotine 2 MG Q2P PRN 07/15 2215 AC 07/16 PO 1526 Nicotine 21 MG DAILY 07/15 2199 AC TOP Risperidone 2 MG DAILY 07/16 0900 AC 07/17 PO 0844 Risperidone 3 MG AT BEDTIME 07/15 2100 AC 07/16 PO 2209 Trazodone HCl 50 MG AT BEDTIME NEED.. 07/15 1530 AC PO Laboratory Tests 07/17 07/16 07/15 07/15 0640 0614 1145 1039 Chemistry Sodium (137 - 145 mmol/L) 144 Potassium (3.5 - 5.1 mmol/L) 3.9 3.3 L 3.2 L Chloride (98 - 107 mmol/L) 102 Carbon Dioxide (22 - 30 mmol/L) 28 Anion Gap (5 - 16) 14 BUN (9 - 20 mg/dL) 7 L Creatinine (0.7 - 1.2 mg/dL) 1.0 Estimated GFR (>60 ml/min) > 60 BUN/Creatinine Ratio (7 - 25 %) 7.0 Glucose (65 - 99 mg/dL) 119 H Calcium (8.4 - 10.2 mg/dL) 10.7 H Magnesium (1.6 - 2.3 mg/dL) 2.0 Total Bilirubin (0.2 - 1.3 mg/dL) 0.4 AST (17 - 59 U/L) 52 ALT (21 - 72 U/L) 42 Alkaline Phosphatase (< 127 U/L) 46 Total Protein (6.3 - 8.2 g/dL) 7.4 Albumin (3.5 - 5.0 g/dL) 4.5 Globulin (1.9 - 4.2 gm/dL) 2.9 Albumin/Globulin Ratio (1.1 - 2.2 %) 1.6 Amylase (30 - 110 U/L) 69 Hematology CBC w Diff NO MAN DIFF REQ WBC (4.8 - 10.8 /CUMM) 7.8 RBC (4.70 - 6.10 /CUMM) 4.97 Hgb (14.0 - 18.0 G/DL) 14.7 Hct (42 - 52 %) 42.2 MCV (80.0 - 94.0 FL) 85.0 MCH (27.0 - 31.0 PG) 29.6 MCHC (33.0 - 37.0 G/DL) 34.8 RDW (11.5 - 14.5 %) 13.7 Plt Count (130 - 400 /CUMM) 343 MPV (7.4 - 10.4 FL) 8.7 Gran % (42.2 - 75.2 %) 64.7 Lymphocytes % (20.5 - 51.1 %) 24.4 Monocytes % (1.7 - 9.3 %) 7.5 Eosinophils % (0 - 5 %) 2.7 Basophils % (0.0 - 2.0 %) 0.7 Absolute Granulocytes (1.4 - 6.5 /CUMM) 5.0 Absolute Lymphocytes (1.2 - 3.4 /CUMM) 1.9 Absolute Monocytes (0.10 - 0.60 /CUMM) 0.6 Absolute Eosinophils (0.0 - 0.7 /CUMM) 0.2 Absolute Basophils (0.0 - 0.2 /CUMM) 0.1 Toxicology Urine Opiates Screen (>2000 NG/ML) < 100 Methadone Screen (>300 NG/ML) < 40 Barbiturate Screen (>200 NG/ML) < 60 Valproic Acid (50 - 120 ug/mL) 24.0 L Ur Phencyclidine Scrn (>25 NG/ML) < 6.00 Amphetamines Screen (>1000 NG/ML) < 100 U Benzodiazepines Scrn (>200 NG/ML) < 85 Urine Cocaine Screen (>300 NG/ML) < 50 Urine Cannabis Screen (>50 NG/ML) < 5.00 Serum Alcohol (<10 MG/DL) < 10.0 Vital Signs Date Time Temp Pulse Resp B/P B/P Pulse O2 O2 Flow FiO2 Mean Ox Delivery Rate 07/17 0844 97.9 82 18 122/85 07/17 0740 97.9 82 122/85 07/16 1955 99.0 88 113/71 07/16 1617 86 118/74 07/16 1224 96 140/69 MSE General appearance: good hygiene and grooming; Attitude: cooperative; Eye contact: appropriate; Movement: no psychomotor agitation or slowing; Speech: nl fluency, nl rate/rhythm, nl volume, nl prosody; Mood: "let me think.....hummm" Affect: irritable, flat, appropriate, constricted, non-labile, congruent; Thought process: linear and goal-directed but very trangential and bizzare at times; Thought content: denied SI or HI, no paranoid ideation; Perception: denied hallucinations- auditory, visual, does not appear to be responding to internal stimuli; I/J: limited A/P: Pt with long hx of bipolar disorder now with decompensation in the setting of medication noncompliance. -Continue current medication regimen -Encourage integration into the milieu -K+ normalized
[2017-07-17 11:53] VITALS: BP 129/71
[2017-07-17 15:48] VITALS: BP 122/78
[2017-07-17 20:01] VITALS: BP 124/76
[2017-07-18 07:58] VITALS: BP 115/72
--- NOTE | 2017-07-18 08:44 | CP SOUTH PROGRESS NOTE PSYCH ---
Psych (Inpt) Progress Note Progress Note Pt reports feeling better but still with difficulty "thinking." He spoke at length about his father anuresym that ultimately lead to his . Pt is concerned that his will happen to him. After interview, pt gave this provider a document entitled living will that was hand written. It was given to RNs to place in his chart. Pt detailed his wishes if has similar medical issues to his father. Thinks that risperidone 3mg is helpful. Denies SI or HI. good hygiene and grooming; cooperative; Eye contact: appropriate; Movement: no psychomotor agitation or slowing; Speech: nl fluency, nl rate/rhythm, nl volume, nl prosody; Mood: "let me think.....hummm" Affect: irritable, flat, appropriate, constricted, non-labile, congruent; Thought process: linear and goal-directed but very trangential and bizzare at times; Thought content: denied SI or HI, no paranoid ideation; Perception: denied hallucinations- auditory, visual, does not appear to be responding to internal stimuli; I/J: limited A/P: Pt with long hx of bipolar disorder now with decompensation in the setting of medication noncompliance. -Continue current medication regimen -Encourage integration into the milieu -K+ normalized DICTATED BY: Marizol KEY,Justin Phillips DATE/TIME DICTATED:07/17/171052 HANGER OFF:AC DATE/TIME TRANSCRIBED:07/17/171052 REPORT NUMBER:[id number]
[2017-07-18 12:22] VITALS: BP 130/74
[2017-07-18 15:51] VITALS: BP 101/61
--- NOTE | 2017-07-18 18:35 | SOCIAL WORKER PROG NOTE PSYCH ---
Social Work Progress Note Progress Note This sheet writer met with patient. Patient stated that he had not been experiencing any symptoms in the last 5 years and is unclear as to what led to current admission. Patient stated that he has been attending treatment at [facility] ( individual therapy, medicaiton management, group therapy and case management). Patient expressed interest in obtaining a new pillowcase cleaner as he stated that his current pillowcase cleaner, Lore Donnelly, is not helpful. Patient stated that he currently lives with his mother and plans to return there upon discharge from [facility]. Patient denied any current legal history. He stated that he was arrested on 07/23/17 due to "acting funny." This was later nollied. Patient stated that he has been sober from alcohol for 21 years. He denied SI/HI/AH/VH. Patient is agreeable to a family meeting with his mother (by phone) and his sister.
[2017-07-18 19:47] VITALS: BP 121/76
[2017-07-19 07:29] VITALS: BP 106/72
[2017-07-19] MEDS ORDERED: FENOFIBRATE145 M1 PO (08:32)
[2017-07-19] MEDS ORDERED: TRICOR145 M1 PO (09:57)
[2017-07-19] MEDS ORDERED: AMLODIPINE BESYL5 M1 PO ×2 (09:57→13:02)
[2017-07-19] MEDS ORDERED: LORATADINE10 M1 PO (09:57)
[2017-07-19] MEDS ORDERED: DIVALPROEX SOD500 M3 PO (09:57)
[2017-07-19] MEDS ORDERED: NICOTINE PATCH1 EAC3 TOP (09:57)
[2017-07-19 11:55] VITALS: BP 122/74
--- NOTE | 2017-07-19 12:51 | CP SOUTH PROGRESS NOTE PSYCH ---
Psych (Inpt) Progress Note Progress Note Vital Signs Date Time Temp Pulse Resp B/P B/P Pulse O2 FiO2 07/19 1155 89 122/74 07/19 0902 96.9 89 18 106/72 07/19 0729 96.9 89 106/72 07/18 1947 98.2 79 121/76 07/18 1551 82 101/61 Mental status examination: The patient was alert and oriented to time, place, and person. He seem to be in good spirits and was advocating for his own discharge today. He was clean shaven and seemed to be bright in his affect and denied feeling depressed. There was no evidence of formal thought disorder or delusional thoughts today. Denies SI or HI. good hygiene and grooming; cooperative; no psychomotor agitation or slowing; speech was normal he was not pressured, and he was not slurred. linear and goal-directed, no paranoid ideation; denied hallucinations, does not appear to be responding to internal stimuli Assessment: The patient is a 52-year-old single white male who has been a patient of care was referred to the emergency room because there was concern that he was having delusional thinking. The patient has been on Risperdal and he reported that he has been taking his medications as prescribed he presented very well on the unit there was no significant thought disorder or delusions. Patient seems to have some developmental issues with either multiple learning disabilities or borderline intellectual functioning. He reported that he may have had some hallucinations in the past but not since has been on the Risperdal and it seems that he has been on Risperdal per his report since 1998. Treatment plan update: I feel that the patient is not posing a danger to himself or others and there was no evidence of grave disability or acute psychosis. I believe the patient may be discharged this afternoon to resume his outpatient treatment at [facility].
--- NOTE | 2017-07-19 12:57 | DISCHARGE SUMMARY REPORT-PSYCH ---
Visit Information Visit Dates/Diagnosis' Admission Date: 07/15/17 Discharge Date: 07/19/17 Reason for Admission: Suspicion of psychosis Psy Discharge Primary Diag: Bipolar Disorder Hospital Course Significant Lab Findings: Lab Potassium 3.2 mmol/L L 07/15/17 1145 Potassium 3.3 mmol/L L 07/16/17 0614 Potassium 3.9 mmol/L 07/17/17 0640 Course Complications: Patient did not have any complications while he was on the inpatient psychiatric unit. Consultations: Patient had a history and physical examination while he was on the inpatient psychiatric unit. Please refer to the patient's electronic health record for the details of the H&P. Allergies: Coded Allergies: oak (Severe, ANAPHYLAXIS 07/15/17) tree and shrub pollen (Severe, DIFFICULTY BREATHING 07/15/17) oxycodone (MAKES ME WACKY 07/15/17) Uncoded Allergies: ETHANOL (UNKNOWN 07/15/17) Hospital Course/TX Response: Vital Signs Date Time Temp Pulse Resp B/P B/P Pulse O2 FiO2 07/19 1155 89 122/74 07/19 0902 96.9 89 18 106/72 07/19 0729 96.9 89 106/72 07/18 1947 98.2 79 121/76 07/18 1551 82 101/61 Mental status examination: The patient was alert and oriented to time, place, and person. He seem to be in good spirits and was advocating for his own discharge today. He was clean shaven and seemed to be bright in his affect and denied feeling depressed. There was no evidence of formal thought disorder or delusional thoughts today. Denies SI or HI. good hygiene and grooming; cooperative; no psychomotor agitation or slowing; speech was normal he was not pressured, and he was not slurred. linear and goal-directed, no paranoid ideation; denied hallucinations, does not appear to be responding to internal stimuli Assessment: The patient is a 52-year-old single white male who has been a patient of care was referred to the emergency room because there was concern that he was having delusional thinking. The patient has been on Risperdal and he reported that he has been taking his medications as prescribed he presented very well on the unit there was no significant thought disorder or delusions. Patient seems to have some developmental issues with either multiple learning disabilities or borderline intellectual functioning. He reported that he may have had some hallucinations in the past but not since has been on the Risperdal and it seems that he has been on Risperdal per his report since 1998. Treatment plan update: I feel that the patient is not posing a danger to himself or others and there was no evidence of grave disability or acute psychosis. I believe the patient may be discharged this afternoon to resume his outpatient treatment at [facility]. Discharge HBIPS - Tobacco Use Treatment Offered - EtOH/Drug Use D/O Treatment Offered Metabolic Screening - Screen if on a Neuroleptic Medication - Metabolic screening should include: - Blood Pressure, BMI, Glucose or Hgb A1c, & a - Lipid profile from within the past 365 days. Discharge Instructions General Discharge Information Referrals Ordered Referrals [facility] 07/20/[address] [place] [address] [phone] Patient will meet with Michelle Slade LPC on 07/20/17, at 2pm for IOP orientation. Outpatient Psychiatry 07/27/17 248[address] [facility] [place] [address] [facility] [address] [phone] Group meets every other Tuesday at 4pm Next group: 07/27/17 at 4pm [facility] 07/21/[address] [place] [address] [phone] Appointment: , 07/21/17, at 1pm with Adrianne Cunningham LPC [address] [place] [address] [phone] Case management appointment: Meet with Lore Donnelly immediately following IOP orientation on 07/20/17. Prescriptions Continue taking these medications: Fenofibrate Nanocrystallized (Fenofibrate) 145 MG TABLET 1 Tablet ORAL DAILY Qty = 90 Comments: Last Taken:07/19/17 Time:9am This prescription has been renewed Amlodipine Besylate (Amlodipine Besylate) 5 MG TABLET 1 Tablet ORAL DAILY Qty = 30 Comments: Last Taken:07/19/17 Time:9am This prescription has been renewed Divalproex Sodium (Divalproex Sodium ER) 500 MG TAB.ER.24H 2 Tablet ORAL Every night Qty = 60 Comments: Last Taken:07/18/17 Time:10pm This prescription has been renewed Risperidone (Risperidone) 2 MG TABLET 1 Tablet ORAL TWICE DAILY Qty = 30 Comments: Last Taken:07/19/17 Time:9am This prescription has been renewed Hydrochlorothiazide (Hydrochlorothiazide) 50 MG TABLET 1 Tablet ORAL DAILY Qty = 30 Comments: Last Taken:07/19/17 Time:9am This prescription has been renewed Montelukast Sodium (Montelukast Sodium) 10 MG TABLET 1 Tablet ORAL DAILY Qty = 30 Comments: Last Taken:07/18/17 Time:10pm This prescription has been renewed Start taking the following new medications: Nicotine (Nicotine Patch) 21 MG/24 HOUR PATCH.TD24 21 Milligram On the skin DAILY Qty = 15 No Refills Comments: not taken in hospital Nicotine (Nicorelief) 2 MG GUM 2 Milligram ORAL EVERY 2 HOURS NEEDED as needed for SMOKING CRAVING Qty = 90 No Refills Comments: Last Taken:07/18/17 Time:3pm
[2017-07-19] MEDS ORDERED: HYDROCHLOROTHIA50 M1 PO (13:02)
[2017-07-19] MEDS ORDERED: NICORELIEF2 MG PO (13:02)
[2017-07-19] MEDS ORDERED: RISPERIDONE2 M1 PO (13:02)
[2017-07-19] MEDS ORDERED: MONTELUKAST SOD10 M1 PO (13:02)
[2017-07-19] MEDS ORDERED: DEPAKOTE ER500 M1 PO (13:07)
--- NOTE | 2017-07-19 13:10 | Patient Discharge Instructions ---
Psych Discharge Inst General Discharge Information Reason for Admission: suspicion of psychosis Psy Discharge Primary Diag+ By History Bipolar Psy Discharge Secondary Diag+ Developmental Disorder Summary Tests/Major Procedures There were no significant abnormalities in the patient's laboratory work. Studies Pending at DC: None Patient Instructions Contact Information Your Psychiatrist on [facility] was Tino Kenyon MD * If you are experiencing an emergency related to this hospitalization, please call [phone] to contact the treating psychiatrist or the psychiatrist-on- call. * To Request a copy of your medical records, please contact the Medical Records Department at [phone]. * To request results of studies pending at the time of discharge, please call [phone]. * Continue your Medications until directed to stop by your Healthcare provider. General Medication Information Please continue to take your new medications and your continued home medications , unless otherwise indicated on your discharge medication list, or unless directed by your MD or TAPPER SHANK to stop them. Special Instructions Diet Regular Activity Normal - Tobacco Use Treatment Offered Post DC Medications Offered: Refused Tob Medication Tx Post DC Tobacco Treatment Plan: Refused Tobacco Tx Pgm - EtOH/Drug Use D/O Treatment Offered Post DC Medications Offered: NA-No EtOH/Drug Use D/O Post DC EtOH/SubAbuse TX Plan: NA-No EtOH/Drug Use D/O Metabolic Screening Patient on a neuroleptic(s) . Enter below results for Hemoglobin A1C, and lipid panel if obtained during the last 365 days. BMI: 30.000 Blood Pressure: 122/74 Laboratory Results From [facility] (If applicable): Lab Cholesterol 140 MG/DL 07/12/17 0931 Cholesterol/HDL Ratio 3 % 07/12/17 09 HDL Cholesterol 56 mg/dL 07/12/17 0931 Hemoglobin A1c 5.3 % 07/12/17 0931 LDL Cholesterol, Calc 59 mg/dL L 07/12/17 09 Triglycerides 129 mg/dL 07/12/17 0931 Advance Directives Does the Patient have Medical Advance Directives No/Per pt req info given Does Pt have Psychiatric Advance Directives? No/Per pt req info provid Does Patient have a Designated Surrogate Decision Maker: No Information About Psychiatric Advance Directives Provided? Yes Discharge Plan Post Hospital Treatment Plan: [facility]
--- NOTE | 2017-07-19 16:03 | SOCIAL WORKER PROG NOTE PSYCH ---
See Addendum Social Work Progress Note Progress Note This copywriter spoke with Linda at [facility], who contacted me by phone. She was informed that the patient is recommended to attend the Symptom Management IOP at their program and requested that I review this with the patient. This copywriter spoke with patient's mother, Sophia, and scheduled a family meeting by phone for 1:30pm today. This copywriter left a vm for the patient's sister, Do, regarding this meeting but did not receive a response. Sophia stated that Do is working today and would not be available. This copywriter met with patient. He was agreeable to discharge today and agreeable to a referral to [facility]'s IOP. He described his mood as "pretty chin up." Patient stated that, in addition to [facility] IOP, medication management and case management, he will attend AA meetings. He identified safey plan in which he would "call my sponsor or my sister." Patient accepted the crisis numbers and warm line numbers. Dr. Kenyon, this copywriter and patient met with his mother, Dayton, who attended by phone. Progress and discharge plans were reviewed. Patient stated that he did not feel the need for a visitng nurse, with which his mother agreed. She confirmed that the patient is engaged in case management services with [facility]. Patient stated that, per Linda at [facility]'s inquiry, he had discussed Nataly Noe with his individual therapist, however, has been on the wait list with [facility] and has been for the past 2 years. He anticipates to be very close to obtaining housing through them and has been informed that he will be contacted when he is able to move in. Patient's mother confirmed that the patient lives with her and can return home upon discharge until he is able to move into [facility]. Patient's mother stated that there are no guns or weapons in the home. She denied having any safety concerns. Dayton was informed that the patient has been referred to [facility] IOP and an intake date/time is pending. Patient stated that he plans to attend 12 AA meetings/week, as he attends 2-3 per day. Patient's mother stated that there are no gasoline canisters or boxes of batteries in the home. Patient stated that he has his car parked in the parking lot; all were in agreement that he would drive himself home upon discharge today. This copywriter contacted [facility] and spoke with Bailey Grewal, clinic robot programmer. She was informed of Linda's inquiry about attending [facility] IOP. Clinical and IOP referral form were faxed to [facility]. It was asked if patient could attend the IOP with his insurance (per verification office, ext [phone], patient's [employer] C should cover the IOP. Bailey stated that the patient could come to the IOP orientation tomorrow at 2pm and the insurance would be explored at that time. In addition, patient was given an appointment with Adrianne, his individual therapist at [facility] on , 07/21/17 at 2pm. If patient's insurance does not cover the IOP, other treatment will be explored. Patient was agreeable to this plan. This copywriter spoke with Lore Donnelly, patient's case therapist at [facility]. She stated that she would meet with the patient when he completed the IOP orientation tomorrow. She was informed of the discharge plan. Patient agrees to meet with Lore Donnelly after the IOP orientation tomorrow. This copywriter left a vm for Linda at [facility] ([phone]) regarding the discharge plan and the [facility] wait list. A call back number was provided.
== END 2017-07-19 15:10 | DRG 885 ==
LOC: ERH 08:48 → ERHI 19:12 → CP SOUTH 19:12
PROVIDERS: Emergency Medicine
DX: F31.9 Bipolar disorder, unspecified (principal); F89 Unspecified disorder of psychological development
CPT/HCPCS: 36415; 71046; 80307; G0480

== ENCOUNTER 2017-08-08 01:26 | Inpatient (IN) | payer OTHER, MEDICARE ==
[~2017-08-08] VITALS: Ht 157.5 cm; Wt 74.8 kg
[~2017-08-08 01:26] MED LIST: AMLODIPINE BESYL5 M1 PO; DEPAKOTE ER500 M1 PO; DIVALPROEX SOD500 M3 PO; FENOFIBRATE145 M1 PO; HYDROCHLOROTHIA50 M1 PO; LORATADINE10 M1 PO; MONTELUKAST SOD10 M1 PO; NICORELIEF2 MG PO; NICOTINE PATCH1 EAC3 TOP; RISPERIDONE2 M1 PO; TRICOR145 M1 PO
--- NOTE | 2017-08-08 01:38 | ED PSYCHIATRIC COMPLAINT ---
History of Present Illness General Chief Complaint: Psychiatric Related Complaint Stated Complaint: PSYCH Source: patient, EMS Exam Limitations: clinical condition Vital Signs & Intake/Output Vital Signs & Intake/Output Vital Signs Date Time Temp Pulse Resp B/P B/P Pulse O2 O2 Flow FiO2 Mean Ox Delivery Rate 08/08 1527 98.2 90 20 138/92 95 Room Air 08/08 1203 98 18 155/95 98 Room Air 08/08 1200 98.4 80 18 118/68 08/08 1020 98.0 86 18 120/81 99 Room Air 08/08 0617 98.4 80 18 118/68 98 Room Air 08/08 0501 97.4 89 18 129/74 98 Room Air 08/08 0450 97 Room Air 08/08 0342 97.7 93 18 135/78 98 Room Air 08/08 0133 97.9 104 20 151/89 98 Room Air Allergies Coded Allergies: oak (Severe, ANAPHYLAXIS 07/15/17) tree and shrub pollen (Severe, DIFFICULTY BREATHING 07/15/17) oxycodone (MAKES ME WACKY 07/15/17) Uncoded Allergies: ETHANOL (UNKNOWN 07/15/17) Reconcile Medications Amlodipine Besylate 5 MG TABLET 1 TAB PO DAILY HEART Divalproex Sodium (Divalproex Sodium ER) 500 MG TAB.ER.24H 2 TAB PO QPM MOOD STABILITY Fenofibrate Nanocrystallized (Fenofibrate) 145 MG TABLET 1 TAB PO DAILY CHOLESTEROL Hydrochlorothiazide 50 MG TABLET 1 TAB PO DAILY BP Montelukast Sodium 10 MG TABLET 1 TAB PO DAILY ALLERGIES Nicotine (Nicotine Patch) 21 MG/24 HOUR PATCH.TD24 21 MG TOP DAILY smoking cessation Nicotine (Nicorelief) 2 MG GUM 2 MG PO Q2P PRN SMOKING CRAVING Risperidone 2 MG TABLET 1 TAB PO BID MENTAL HEALTH Triage Nurses Notes Reviewed? yes Onset: Gradual Duration: hour(s): Timing: recent history Severity: moderate Associated Symptoms: anxiety HPI: 52 yo gentleman h/o bipolar disorder presents with delusions and presented to the police department. He brings with him his journal which describes his concerns in great detail. For example, he believes that the field cashier at the [employer] is dealing drugs. In his wallet, he has recorded names and license plate numbers. (Elin KEY,Cayetano Douglas) Past History Travel History Traveled to [place] past 21 day No Medical History Any Pertinent Medical History? see below for history Neurological: NONE EENT: allergies Cardiovascular: hypertension, hyperlipidemia Respiratory: CIGARETTE SMOKER Gastrointestinal: NONE Hepatic: NONE Renal: NONE Musculoskeletal: chronic back pain, osteoarthritis Psychiatric: alcohol dependence, bipolar disease Endocrine: NONE Blood Disorders: NONE Cancer(s): NONE FITNESS ASSISTANT/Reproductive: NONE History of MRSA: No History of VRE: No History of CDIFF: No Surgical History Surgical History: back surgery, knee surgery Psychosocial History Who do you live with Mother Services at Home None What is your primary language Danish Family History Hx Contributory? No (Elin KEY,Cayetano Douglas) Review of Systems Review of Systems Constitutional: Denies: see HPI. (Elin KEY,Cayetano Douglas) Physical Exam Physical Exam General Appearance: well developed/nourished, awake, anxious Head: atraumatic, normal appearance Eyes: Bilateral: normal appearance. Ears, Nose, Throat: normal pharynx, normal ENT inspection Neck: normal inspection, supple, full range of motion Respiratory: no respiratory distress Gastrointestinal: soft Extremities: normal range of motion Neurological/Psychiatric: no motor/sensory deficits, agitated, anxious, oriented x 3 Appearance/Memory/Insight: impaired insight Behavoir/Eye Contact/Speech: cooperative Thoughts/Hallucinations: paranoid Skin: intact, normal color, warm/dry SAD PERSONS SAD PERSONS Response Value Male Sex? yes 1 Age <19 or >45 years? yes 1 Depression/Hopelessness? yes 2 Rational Thinking Loss? yes 2 Single//? yes 1 Social Support? has no support 1 Total 8 SAD PERSONS Done? yes (Elin KEY,Cayetano Douglas) Progress Differential Diagnosis: bipolar, drug abuse vs other. Plan of Care: Orders Procedure Date/time Status Regular Diet 08/09 B Active Admit to inpatient psych 08/08 1542 Active DEPAKOTE LEVEL 08/08 0151 Complete Continuous Observation Monitor 08/08 014 Active URINE DRUG SCREEN FOR ER ONLY 08/08 014 Complete ETHANOL 08/08 014 Complete COMPREHENSIVE METABOLIC PANEL 08/08 014 Complete CBC WITHOUT DIFFERENTIAL 08/08 141 Complete ED CRISIS PSYCH CONSULT 08/08 0142 Active Current Medications Sig/Mary Start time Last Medication Dose Stop Time Status Admin Amlodipine Besylate 5 MG DAILY 08/08 899 UNVr 08/08 (Norvasc) 1200 Divalproex Sodium 1,000 MG DAILY 08/08 899 UNVr (Depakote ER) Fenofibrate 145 MG DAILY 08/08 899 UNVr 08/08 (Tricor) 1200 Hydrochlorothiazide 50 MG DAILY 08/08 899 UNVr 08/08 (Hydrodiuril) 1200 Montelukast Sodium 10 MG DAILY 08/08 899 UNVr (Singulair) Nicotine 21 MG DAILY 08/08 899 UNVr (Nicoderm) Risperidone 2 MG BID 08/08 899 UNVr 08/08 (risperiDONE) 1049 Laboratory Tests 08/08/17 0151: Anion Gap 14, Estimated GFR > 60, BUN/Creatinine Ratio 10.0, Glucose 117 H, Calcium 10.2, Total Bilirubin 0.3, AST 27, ALT 34, Alkaline Phosphatase 47, Total Protein 7.4, Albumin 4.4, Globulin 3.0, Albumin/Globulin Ratio 1.5, CBC w Diff NO MAN DIFF REQ, RBC 5.13, MCV 86.7, MCH 28.9, MCHC 33.3, RDW 14.0, MPV 8.6 , Gran % 56.2, Lymphocytes % 30.6, Monocytes % 9.8 H, Eosinophils % 2.8, Basophils % 0.6, Absolute Granulocytes 5.3, Absolute Lymphocytes 2.9, Absolute Monocytes 0.9 H, Absolute Eosinophils 0.3, Absolute Basophils 0.1, Valproic Acid 38.5 L, Serum Alcohol < 10.0 08/08/17 0143: Valproic Acid Cancelled 08/08/17 0140: Urine Opiates Screen < 100, Methadone Screen < 40, Barbiturate Screen < 60, Ur Phencyclidine Scrn < 6.00, Amphetamines Screen < 100, U Benzodiazepines Scrn < 85, Urine Cocaine Screen < 50, Urine Cannabis Screen < 5.00 Hand-Off Endorsed To: Sadia KEY,Avila Thurston Endorsed Time: 0700 Pending: consult (Elin KEY,Cayetano Douglas) Comments: 08/08/2017 8:34:30 AM patient signed out to me by Dr. Worthington shift exchange engineer. (Sadia KEY,Avila Thurston) Departure Departure Disposition: STILL A PATIENT Condition: Stable Clinical Impression Primary Impression: Bipolar 1 disorder with moderate douglas Secondary Impressions: Delusions Referrals: Dayton Hurley APRN (PCP/Family) Departure Forms: Customer Survey General Discharge Information (Elin KEY,Cayetano Douglas) Psych Admission Note Psychiatric Admission: I have seen and evaluated MAYNOR LOU. I have also reviewed all the pertinent lab results and diagnostic results. MAYNOR LOU will be admitted to our inpatient Psychiatric unit for treatment and care. (Sadia KEY,Avila Thurston)
[2017-08-08 02:09] LABS: ABSOLUTE BASOPHIL COUNT 0.1 /CUMM (0.0-0.2); ABSOLUTE EOSINOPHIL COUNT 0.3 /CUMM (0.0-0.7); ABSOLUTE GRANULOCYTE CT 5.3 /CUMM (1.4-6.5); ABSOLUTE LYMPH COUNT 2.9 /CUMM (1.2-3.4); ABSOLUTE MONOCYTE COUNT 0.9 /CUMM (0.10-0.60); BASOPHIL % 0.6 % (0.0-2.0); EOSINOPHIL % 2.8 % (0-5); GRANULOCYTE % 56.2 % (42.2-75.2); HEMATOCRIT 44.5 % (42-52); MEAN CORPUSCULAR HGB 28.9 PG (27.0-31.0); MEAN CORPUSCULAR HGB CONC 33.3 G/DL (33.0-37.0); MEAN CORPUSCULAR VOLUME 86.7 FL (80.0-94.0); MEAN PLATELET VOLUME 8.6 FL (7.4-10.4); PLATELET COUNT 361 /CUMM (130-400); RED BLOOD CELL CT 5.13 /CUMM (4.70-6.10); WHITE BLOOD CELL COUNT 9.5 /CUMM (4.8-10.8)
--- NOTE | 2017-08-08 09:06 | ED PSYCH CRISIS CONSULTATION ---
See Addendum Crisis Consult Basic Assessment Date of Consult: 08/08/17 Responsible Person/Accompanied By: self/biba/PEER Insurance Authorization: Insurance #1: Insurance name: MEDICARE A Phone number: Policy number: [id number] Group number: Authorization number: ED Provider: Patient's ED Provider: Elin KEY,Cayetano Douglas Primary Care Physician: Patient's PCP: Dayton Hurley APRN PCP's Current Psychiatrist: [facility] Chief Complaint: Psychiatric Related Complaint Patient's Quote: I need to see if I'm sane Present Illness: Pt is a 52 yo male biba early this morning to [facility] on a [employer] PEER. PEER documents pt reports the government is tracking him and states that someone may have laced his cigarettes. Pt has a prior diagnosis of bipolar d/o with psychotic features and hasn't been compliant with treatment and medications since recent discharge 07/19/17 from [facility]. Pt was referred to [facility] for aftercare but didn't complete intake process. Pt remains engaged with counseling and case management at [facility] but not scheduled to see medication provider until August 23. [facility] report pt has been increasingly demanding, paranoid and disorganized. During consult pt was calm and OX3 but expressed paranoia and experiencing AH/VH. Pt denies SI/HI. Pt had bizarre answers and was guarded. When asked why pt is in ED pt responded "to see if I'm sane". Pt was also guarded and after a couple questions stated "That's all I need to say" and no longer wanted to participate in the interview. Pt has a hx of etoh abuse but reports over 20 yrs sobriety. Pt denies substance use. Both BAL and urine tox screen were negative. Pt Depokote level also below therapeutic level. Pt was discharged from [facility] on Risperdal and Depakote.Pt resides with his mother who has parkinson's disease. Case reviewed with Dr Kenyon. Recommendation for inpatient psychiatric treatment. Pt in agreement with plan for inpatient and is aware a bed search is needed due to no current bed availability on [facility]. Patient's Address: [address] [place] [address] Other Phone Number: Who Do You Live With? Mother Family/Informants Interviewed: Collateral provided by [facility] Marci Bowens [phone]. Allergies - Coded Allergies: oak (Severe, ANAPHYLAXIS 07/15/17) tree and shrub pollen (Severe, DIFFICULTY BREATHING 07/15/17) oxycodone (MAKES ME WACKY 07/15/17) Uncoded Allergies: ETHANOL (UNKNOWN 07/15/17) Current Medications - Scheduled Medications Amlodipine Besylate 5 MG TABLET 1 TAB PO DAILY HEART #30 TAB Prescribed by Tino Kenyon MD on 07/19/17 Divalproex Sodium (Divalproex Sodium ER) 500 MG TAB.ER.24H 2 TAB PO QPM MOOD STABILITY #60 TAB Prescribed by Tino Kenyon MD on 07/19/17 Fenofibrate Nanocrystallized (Fenofibrate) 145 MG TABLET 1 TAB PO DAILY CHOLESTEROL #90 TAB Prescribed by Tino Kenyon MD on 07/19/17 Hydrochlorothiazide 50 MG TABLET 1 TAB PO DAILY BP #30 TAB Prescribed by Tino Kenyon MD on 07/19/17 Montelukast Sodium 10 MG TABLET 1 TAB PO DAILY ALLERGIES #30 TAB Prescribed by Tino Kenyon MD on 07/19/17 Nicotine (Nicotine Patch) 21 MG/24 HOUR PATCH.TD24 21 MG TOP DAILY smoking cessation #15 PATCH Prescribed by Tino Kenyon MD on 07/19/17 Risperidone 2 MG TABLET 1 TAB PO BID MENTAL HEALTH #30 TAB Prescribed by Tino Kenyon MD on 07/19/17 Scheduled PRN Medications Nicotine (Nicorelief) 2 MG GUM 2 MG PO Q2P PRN SMOKING CRAVING #90 GUM Prescribed by Tino Kenyon MD on 07/19/17 Laboratory Results: Laboratory Tests 08/08/17 0151: Anion Gap 14, Estimated GFR > 60, BUN/Creatinine Ratio 10.0, Glucose 117 H, Calcium 10.2, Total Bilirubin 0.3, AST 27, ALT 34, Alkaline Phosphatase 47, Total Protein 7.4, Albumin 4.4, Globulin 3.0, Albumin/Globulin Ratio 1.5, CBC w Diff NO MAN DIFF REQ, RBC 5.13, MCV 86.7, MCH 28.9, MCHC 33.3, RDW 14.0, MPV 8.6 , Gran % 56.2, Lymphocytes % 30.6, Monocytes % 9.8 H, Eosinophils % 2.8, Basophils % 0.6, Absolute Granulocytes 5.3, Absolute Lymphocytes 2.9, Absolute Monocytes 0.9 H, Absolute Eosinophils 0.3, Absolute Basophils 0.1, Valproic Acid 38.5 L, Serum Alcohol < 10.0 08/08/17 0143: Valproic Acid Cancelled 08/08/17 0140: Urine Opiates Screen < 100, Methadone Screen < 40, Barbiturate Screen < 60, Ur Phencyclidine Scrn < 6.00, Amphetamines Screen < 100, U Benzodiazepines Scrn < 85, Urine Cocaine Screen < 50, Urine Cannabis Screen < 5.00 Past History Past Medical History Neurological: NONE EENT: allergies Cardiovascular: hypertension, hyperlipidemia Respiratory: CIGARETTE SMOKER Gastrointestinal: NONE Hepatic: NONE Renal: NONE Musculoskeletal: chronic back pain, osteoarthritis Psychiatric: alcohol dependence, bipolar disease Endocrine: NONE Blood Disorders: NONE Cancer(s): NONE ADVENTURE GUIDE/Reproductive: NONE Past Surgical History Surgical History: back surgery, knee surgery Psychosocial History Strengths/Capabilities: patient has maintained sobriety for many years, and is active in Physical Limitations (Interventions): none noted Psychiatric Treatment History Psych Treatment Psychiatric Treatment Yes Inpatient Treatment Yes Outpatient Treatment Yes Location of Treatment [facility]; [facility] Reason for Treatment bipolar; paranoia Dates of Treatment last [facility] discharge 07/19/17; currently in tx at [facility] Response to Treatment pt not compliant with meication or tx recommendation since discharge from [facility] Diagnosis by History: Bipolar disorder History of Alcohol Dependence in sustained remission. Substance Use/Abuse History Drug Use/Abuse Substances Used/Abused Yes Substance Used/Abused Alcohol Last Used 21 yrs ago Substance Abuse Treatment Substance Abuse Treatment Past Substance Abuse TX Yes Inpatient Treatment Yes Outpatient Treatment Yes Location of Treatment [facility] Reason for Treatment etoh abuse Dates of Treatment 1990s Response to Treatment pt has remained sober past 20+ yrs Comments: pt reports no etoh use past 20+ yrs. pt denies substance use but expressed concern that someone may be lacing his drinks and cigarettes. Current Mental Status Mental Status Orientation: Person, Place, Situation Affect: Anxious, Angry, Inappropriate Speech: WNL Appearance Appearance- Dress/Hygiene: pt in hospital scrubs; laying on stretcher in hallway; intense eye contact; labile; paranoid Behaviors Thought Process: Disorganized, Irrational Thought Content: Auditory Hallucinations, Delusions, Paranoid, Visual Hallucinations Memory: Impaired Insight: Fair SI/HI Risk Assessment Past Suicidal Ideation/Attempts Yes Current Suicidal Ideation/Att No Past Homicidal Ideation/Att: No Current Homicidal Ideation/Attempts No Degree of Intent: None Gravely Disabled: Poor Judgment Risk Factors: high anxiety/distress, SA/MH hospitalized, male Lethality Ratin PTSD Checklist PTSD Done? patient declined ED Management Sitter: Yes Restraints: No DSM5/PS Stressors/Medical Prob Diagnosis' (DSM 5, Stressors, Medical): Bipolar d/o with psychosis F31.2 Current GAF: 25 Comments: pt discharged from [facility] on July 19 but didn't follow up with plan for IOP. Pt without medication provider until Care appt on August 23. Departure Disposition Psych Medical Clearance Date: 08/08/17 Medically Cleared at: 0730 Time Started: 729 Time Ended: 814 Psychiatrist Consulted: Tino Kenyon MD Date Disposition Established: 08/08/17 Time Disposition Established: 914 Plan for Disposition - Modality: Bed Search Rationale for Disposition: mood stabilization; medication assessment Referrals Dayton Hurley APRN (PCP/Family)
--- NOTE | 2017-08-08 15:50 | IP CRISIS DIAG ASSESS PSYCH ---
Diagnostic Assessment Basic Assessment Insurance Authorization: Insurance #1: Insurance name: MEDICARE A Phone number: Policy number: [id number] Group number: Authorization number: no preauthorization is required. Pt Darnell is QMB Primary Care Physician: Patient's PCP: Dayton Hurley APRN PCP's Patient's Quote: I need to see if I'm sane Present Illness: Pt is a 52 yo male biba early this morning to [facility] on a [place] [employer] PEER. PEER documents pt reports the government is tracking him and states that someone may have laced his cigarettes. Pt has a prior diagnosis of bipolar d/o with psychotic features and hasn't been compliant with treatment and medications since recent discharge 07/19/17 from [facility]. Pt was referred to [facility] for aftercare but didn't complete intake process. Pt remains engaged with counseling and case management at [facility] but not scheduled to see medication provider until August 23. Care staff report pt has been increasingly demanding, paranoid and disorganized. During consult pt was calm and OX3 but expressed paranoia and experiencing AH/VH. Pt denies SI/HI. Pt had bizarre answers and was guarded. When asked why pt is in ED pt responded "to see if I'm sane". Pt was also guarded and after a couple questions stated "That's all I need to say" and no longer wanted to participate in the interview. Pt has a hx of etoh abuse but reports over 20 yrs sobriety. Pt denies substance use. Both BAL and urine tox screen were negative. Pt Depokote level also below therapeutic level. Pt was discharged from [facility] on Risperdal and Depakote.Pt resides with his mother who has parkinson's disease. Case reviewed with Dr Kenyon. Recommendation for inpatient psychiatric treatment. Pt in agreement with plan for inpatient and is aware a bed search is needed due to no current bed availability on [facility]. Patient's Address: [address] [place] [id number] Other Phone Number: Who Do You Live With? Mother Feel Safe Where You Live? Yes Feel Safe in Your Relationship Yes Marital Status: was in 20 year common law marraige, and person this tear Do You Have Children? No Primary Language? Citizen Of [place] Language(s) Spoken At Home: Citizen Of [place] Family/Informants Interviewed: Collateral provided by [facility] Marci Bowens . Allergies - Coded Allergies: oak (Severe, ANAPHYLAXIS 07/15/17) tree and shrub pollen (Severe, DIFFICULTY BREATHING 07/15/17) oxycodone (MAKES ME WACKY 07/15/17) Uncoded Allergies: ETHANOL (UNKNOWN 07/15/17) Current Medications - Scheduled Medications Amlodipine Besylate 5 MG TABLET 1 TAB PO DAILY HEART #30 TAB Prescribed by Tino Kenyon MD on 07/19/17 Divalproex Sodium (Divalproex Sodium ER) 500 MG TAB.ER.24H 2 TAB PO QPM MOOD STABILITY #60 TAB Prescribed by Tino Kenyon MD on 07/19/17 Fenofibrate Nanocrystallized (Fenofibrate) 145 MG TABLET 1 TAB PO DAILY CHOLESTEROL #90 TAB Prescribed by Tino Kenyon MD on 07/19/17 Hydrochlorothiazide 50 MG TABLET 1 TAB PO DAILY BP #30 TAB Prescribed by Tino Kenyon MD on 07/19/17 Montelukast Sodium 10 MG TABLET 1 TAB PO DAILY ALLERGIES #30 TAB Prescribed by Tino Kenyon MD on 07/19/17 Nicotine (Nicotine Patch) 21 MG/24 HOUR PATCH.TD24 21 MG TOP DAILY smoking cessation #15 PATCH Prescribed by Tino Kenyon MD on 07/19/17 Risperidone 2 MG TABLET 1 TAB PO BID MENTAL HEALTH #30 TAB Prescribed by Tino Kenyon MD on 07/19/17 Scheduled PRN Medications Nicotine (Nicorelief) 2 MG GUM 2 MG PO Q2P PRN SMOKING CRAVING #90 GUM Prescribed by Tino Kenyon MD on 07/19/17 Miscellaneous Medications Risperidone 3 MG TABLET 2 2MG HTN #30 (Reported) Entered as Reported by Addie Soliz on 08/08/17 1605 Consequences of Psych Med Use: pt has been inconsistent with taking medication Lab Results: Laboratory Tests 08/08/17 0151: Anion Gap 14, Estimated GFR > 60, BUN/Creatinine Ratio 10.0, Glucose 117 H, Calcium 10.2, Total Bilirubin 0.3, AST 27, ALT 34, Alkaline Phosphatase 47, Total Protein 7.4, Albumin 4.4, Globulin 3.0, Albumin/Globulin Ratio 1.5, CBC w Diff NO MAN DIFF REQ, RBC 5.13, MCV 86.7, MCH 28.9, MCHC 33.3, RDW 14.0, MPV 8.6 , Gran % 56.2, Lymphocytes % 30.6, Monocytes % 9.8 H, Eosinophils % 2.8, Basophils % 0.6, Absolute Granulocytes 5.3, Absolute Lymphocytes 2.9, Absolute Monocytes 0.9 H, Absolute Eosinophils 0.3, Absolute Basophils 0.1, Valproic Acid 38.5 L, Serum Alcohol < 10.0 08/08/17 0143: Valproic Acid Cancelled 08/08/17 0140: Urine Opiates Screen < 100, Methadone Screen < 40, Barbiturate Screen < 60, Ur Phencyclidine Scrn < 6.00, Amphetamines Screen < 100, U Benzodiazepines Scrn < 85, Urine Cocaine Screen < 50, Urine Cannabis Screen < 5.00 Toxicology Screen Completed? Yes Results: negative Past History Past Medical History Medical History: Hypertension Past Surgical History Surgical History non-contributory Abuse/Trauma History Trauma History/Current Trauma: Denies Abuse/Trauma Treatment: n/a Legal History Current Legal Status: none Have you ever been arrested? Yes Psychosocial History Strengths/Capabilities: patient has maintained sobriety for many years, and is active in AA Physical Limitations (Interventions): none noted Psychiatric Treatment History Psych Treatment Psychiatric Treatment Yes Inpatient Treatment Yes Outpatient Treatment Yes Location of Treatment [facility]; [facility] Reason for Treatment bipolar; paranoia Dates of Treatment last [facility] discharge 07/19/17; currently in tx at [facility] Response to Treatment pt not compliant with meication or tx recommendation since discharge from [facility] Diagnosis by History: Bipolar disorder History of Alcohol Dependence in sustained remission. Risk Factors: high anxiety/distress, SA/MH hospitalized, male Substance Use/Abuse History Drug Use/Abuse minimum 12mo Hx Substances Used/Abused Yes Substance Used/Abused Alcohol Last Used 21 yrs ago Substance Abuse Treatment Substance Abuse Treatment Past Substance Abuse TX Yes Inpatient Treatment Yes Outpatient Treatment Yes Location of Treatment [facility] Reason for Treatment etoh abuse Dates of Treatment 1990s Response to Treatment pt has remained sober past 20+ yrs Sexual History Sexual Concerns: Pt reports he is not in a relationship and does not wish to ever be. Education History Highest Level of Education: high school/GED Preferred Learning Style: visual, auditory, experiential Current Mental Status Mental Status Orientation: Person, Place, Situation Affect: Anxious, Angry, Inappropriate Speech: WNL Appearance Appearance- Dress/Hygiene: pt in hospital scrubs; laying on stretcher in hallway; intense eye contact; labile; paranoid Behaviors Thought Process: Disorganized, Irrational Thought Content: Auditory Hallucinations, Delusions, Paranoid, Visual Hallucinations Memory: Impaired Insight: Fair SI/HI Risk Assessment - Minimum 6mo History- Past Suicidal Ideation/Attempts Yes Current Suicidal Ideation/Att No Past Homicidal Ideation/Att: No Current Homicidal Ideation/Attempts No Degree of Intent: None Gravely Disabled: Poor Judgment Risk Factors: high anxiety/distress, SA/MH hospitalized, male Lethality Ratin Needs/Init TX Plan/Goals: Psychiatric Evaluation Medication Assessment Individual, group and family meetings Coordinated discharge planning AUDIT-C Questionnaire: AUDIT-C Questionnaire: Response Value ETOH use in the past year Never 0 # drinks typical/day Doesn't Drink 0 6 or > drinks per occasion Never 0 Total 0 DSM5/PS Stressors/Medical Prob Diagnosis' (DSM 5, Stressors, Medical): Bipolar d/o with psychosis F31.2 mother has parkinson disease high cholesterol hypertension Current GAF: 25 Comments: pt discharged from [facility] on July 19 but didn't follow up with plan for IOP. Pt without medication provider until Care appt on August 23.
[2017-08-08] MEDS ORDERED: RISPERIDONE3 M1 (16:05)
[2017-08-08 16:49] VITALS: BP 134/74
[2017-08-08 19:41] VITALS: BP 126/76
[2017-08-09 07:59] VITALS: BP 131/77
--- NOTE | 2017-08-09 11:44 | CPS PROVIDER INIT ASMT PSYCH ---
Psychiatric Admission Telephone Order Dispatcher's Note Reviewed: Yes Patient Seen and Examined: Yes Identifying Information: The patient is a 52-year-old single white male Chief Complaint: "I need to see if I am sane." Reaction to Hospitalization: The patient signed in voluntarily History of Present Illness Onset of Illness: The patient has a chronic psychiatric illness with occasional exacerbations. The patient was last discharged from the inpatient unit on July 19, 2017 Circumstances Leading to Admission: The patient was brought in by ambulance to the emergency room with a [facility] on police emergency examination request (PEER). The patient was expressing paranoid delusions and [facility] clinicians were concerned that he is decompensating and becoming more psychotic. The patient also mentioned shooting himself in the head several times during the interview Problem(s) Justifying Need for Admission: Acute psychosis Past Psychiatric History Past Diagnosis(es)- if any: Schizoaffective disorder bipolar type. Past Precipitating Factors- if any: Going off medications or not taking enough - Include inpatient and outpatient treatment Treatment History: Patient has been previously at the inpatient psychiatric unit and was discharged at the beginning of this month (July 2017) The patient has history of multiple inpatient hospitalizations. The patient is followed as an outpatient by [facility]. History of Suicide Attempts or Gestures According to the previous record the patient has had multiple suicide attempts Substance Abuse History: Patient smokes tobacco he rolls his own cigarettes. Patient has had past history of alcohol use but has not used in years also has had history of using marijuana cocaine and heroin in the 1980s. This presentation the patient's blood alcohol blood level was not detectable and his urine toxicology was clean (no drugs of abuse) Allergies: Coded Allergies: oak (Severe, ANAPHYLAXIS 07/15/17) tree and shrub pollen (Severe, DIFFICULTY BREATHING 07/15/17) oxycodone (MAKES ME WACKY 07/15/17) Uncoded Allergies: ETHANOL (UNKNOWN 07/15/17) Home Med List: Amlodipine Besylate 5 MG TABLET 1 TAB PO DAILY HEART #30 TAB Prescribed by Tino Kenyon MD on 07/19/17 Divalproex Sodium (Divalproex Sodium ER) 500 MG TAB.ER.24H 2 TAB PO QPM MOOD STABILITY #60 TAB Prescribed by Tino Kenyon MD on 07/19/17 Fenofibrate Nanocrystallized (Fenofibrate) 145 MG TABLET 1 TAB PO DAILY CHOLESTEROL #90 TAB Prescribed by Tino Kenyon MD on 07/19/17 Hydrochlorothiazide 50 MG TABLET 1 TAB PO DAILY BP #30 TAB Prescribed by Tino Kenyon MD on 07/19/17 Montelukast Sodium 10 MG TABLET 1 TAB PO DAILY ALLERGIES #30 TAB Prescribed by Tino Kenyon MD on 07/19/17 Nicotine (Nicotine Patch) 21 MG/24 HOUR PATCH.TD24 21 MG TOP DAILY smoking cessation #15 PATCH Prescribed by Tino Kenyon MD on 07/19/17 Risperidone 2 MG TABLET 1 TAB PO BID MENTAL HEALTH #30 Scheduled PRN Medications Nicotine (Nicorelief) 2 MG GUM 2 MG PO Q2P PRN SMOKING CRAVING - Include any medical condition(s) that may - impact the patient's recovery/remission Past Medical History: Hypertension and dyslipidemia and chronic back pain Past History Medical History Neurological: NONE EENT: allergies Cardiovascular: hypertension, hyperlipidemia Respiratory: CIGARETTE SMOKER Gastrointestinal: NONE Hepatic: NONE Renal: NONE Musculoskeletal: chronic back pain, osteoarthritis Psychiatric: alcohol dependence, bipolar disease Endocrine: NONE Blood Disorders: NONE Cancer(s): NONE 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 History of MRSA: No History of VRE: No History of CDIFF: No Isolation History: Standard Surgical History Surgical History: non-contributory Psychiatric Family/Social Hx Family History Psychiatric Illness: The patient is adopted and he does not know much about his biological parents history Substance Use: Adopted and does not know if his biological parents had issues with alcohol or substances, it may be likely Suicides: The patient is adopted and does not know if his biological parents had any history of suicides in the family Social History Living Situation: Lives with his mother Significant Relationships (family/friends): His mother Education: High school graduate Vocation/Occupation: Unemployed/disabled Legal: Denied legal entanglements Healthly Behaviors Screening Tobacco Screening Tobacco Use from ED Docu: Quit >30 days ago - If tobacco counseling indicated - the following topics are required. - #1 Recognizing dangerous situations. - #2 Coping Skills. - #3 Basic information about quitting. Status of Tobacco Cessation Counseling: #1, #2 AND #3 Completed Cessation Med Status Nicotine Gum Ordered Alcohol Screening - ETOH screen POS if BAL >=80 or Audit-C>= M4/F3 Audit-C Score from Diag Assess: 0 Blood Alcohol Level: Laboratory Tests 08/08 0151 Toxicology Serum Alcohol (<10 MG/DL) < 10.0 Alcohol Use Screening Results: Neg per Audit C &/or BAL - If ETOH counseling indicated - the following topics are required. - #1 Express concern about the patient's - drinking at unhealthy levels, include informing - of national norms for moderate drinking: - men <= 14 drinks/week, max 4 drinks/occasion - women <= 7 drinks/week, max 3 drinks/occasion - #2 Providing feedback, including linking alcohol to - negative physical effects (liver injury, hypertension) - negative emotional effects (relationship problems and - depression) - negative occupational consequences (reduced work - performance) - #3 Advising the patient to abstain from alcohol or - to drink below national norms for moderate drinking - (as listed above). Status of ETOH Use Counseling: N/A B/C NO ETOH Use Metabolic Screening - Screen if on a Neuroleptic Medication - Metabolic screening should include: - Blood Pressure, BMI, Glucose or Hgb A1c, & a - Lipid profile from within the past 365 days. Metabolic Screening Patient on a neuroleptic(s) . Enter below results for Hemoglobin A1C, and lipid panel if obtained during the last 365 days. BMI: 30.200 Blood Pressure: 141/79 Laboratory Results From [facility] (If applicable): Lab Cholesterol 140 MG/DL 07/12/17 0931 Cholesterol/HDL Ratio 3 % 07/12/17 09 HDL Cholesterol 56 mg/dL 07/12/17 0931 Hemoglobin A1c 5.3 % 07/12/17 0931 LDL Cholesterol, Calc 59 mg/dL L 07/12/17 09 Triglycerides 129 mg/dL 07/12/17 0931 Exam and Plan Mental Status Examination Ambulation Status: Patient was steady on his feet Appearance: The patient is short and is dressed in hospital garb Attitude towards examiner: He was cooperative but slightly irritable Psychomotor activity: Showed normal psychomotor activity Behavior: He did not show any bizarre or abnormal behaviors Quality of speech: He was talkative with mild pressure Affect: Irritable Mood: He reported that has been feeling anxious and depressed and fearful Suicidal Ideation: The patient mentioned shooting self in the head several times during the interview Homicidal Ideation: He denied thinking of violence or homicide Hallucinations: He denied hallucinations Paranoid/Delusional Material: He denied feeling paranoid, but he had multiple paranoid delusions about the government, [facility], the hotel dining room cashier at [facility], etc. Difficulties with thought organization: The patient has only mild difficulty with thought organization he was mainly coherent but delusional Insight: Poor insight Judgment: Poor judgment Orientation: The patient was alert and oriented to time, place, and person. Cognition: Patient has difficulties with attention and concentration. Memory Function: Patient did not have any difficulties with short-term memory. Estimate of intellectual functioning: Average. Assets/Strengths Patient Identified Assets/Strengths: Patient seems to be physically healthy, and he has a supportive mother and he is connected with [facility] Impression/Plan Impression and Plan: 54-year-old single white male who presents with multiple paranoid delusions involving [place], [facility], [facility], drug dealers in the area, and people lacing his cigarettes with something. He is coherent for the most part and slightly irritable and felt that people are not listening to him and that he is frustrated and hit his wits and dying "my I might as well shoot myself in the head" - Include all active medical diagnosis that require tx DSM 5 Diagnosis(es): Schizoaffective disorder bipolar type - Initial Tx Plan for Active Psych & Medical Conditions Treatment Plan: Inpatient psychiatric care with safety checks every 15 minutes Change Depakote to 500 mg in the morning and 1000 mg at bedtime Increase Risperdal to 2 mg in the morning and 3 mg at bedtime - Factors that would help patient function - in a less restrictive setting. Factors: The patient will be discharge if he stopped talking about shooting himself in the head and if his psychotic symptoms are under reasonable reasonable control
[2017-08-09 12:19] VITALS: BP 141/79
--- NOTE | 2017-08-09 12:24 | SOCIAL WORKER SOCIAL HX PSYCH ---
Social History Basic Assessment Insurance Authorization: Insurance #1: Insurance name: MEDICARE [employer] Phone number: Policy number: [id number] Group number: Authorization number: Curr Source of Income/Entitlements: SSDI Primary Care Physician: Patient's PCP: Dayton Hurley APRN PCP's Present Problem: Pt is a 52 yo male biba early this morning to [facility] on a [employer] PEER. PEER documents pt reports the government is tracking him and states that someone may have laced his cigarettes. Pt has a prior diagnosis of bipolar d/o with psychotic features and hasn't been compliant with treatment and medications since recent discharge 07/19/17 from [facility]. Pt was referred to [facility] for aftercare but didn't complete intake process. Pt remains engaged with counseling and case management at [facility] but not scheduled to see medication provider until August 23. Care staff report pt has been increasingly demanding, paranoid and disorganized. During consult pt was calm and OX3 but expressed paranoia and experiencing AH/VH. Pt denies SI/HI. Pt had bizarre answers and was guarded. When asked why pt is in ED pt responded "to see if I'm sane". Pt was also guarded and after a couple questions stated "That's all I need to say" and no longer wanted to participate in the interview. Pt has a hx of etoh abuse but reports over 20 yrs sobriety. Pt denies substance use. Both BAL and urine tox screen were negative. Pt Depokote level also below therapeutic level. Pt was discharged from [facility] on Risperdal and Depakote.Pt resides with his mother who has parkinson's disease. Case reviewed with Dr Kenyon. Recommendation for inpatient psychiatric treatment. Pt in agreement with plan for inpatient and is aware a bed search is needed due to no current bed availability on [facility]. Primary Language? German Language(s) Spoken At Home: German Living Situation Feel Safe Where You Are Living Yes ("Almost 100%") Feel Safe in Relationships? Yes ("only certain ones") Allergies - Coded Allergies: oak (Severe, ANAPHYLAXIS 07/15/17) tree and shrub pollen (Severe, DIFFICULTY BREATHING 07/15/17) oxycodone (MAKES ME WACKY 07/15/17) Uncoded Allergies: ETHANOL (UNKNOWN 07/15/17) Current Medications - Scheduled Medications Amlodipine Besylate 5 MG TABLET 1 TAB PO DAILY HEART #30 TAB Prescribed by Tino Kenyon MD on 07/19/17 Divalproex Sodium (Divalproex Sodium ER) 500 MG TAB.ER.24H 2 TAB PO QPM MOOD STABILITY #60 TAB Prescribed by Tino Kenyon MD on 07/19/17 Fenofibrate Nanocrystallized (Fenofibrate) 145 MG TABLET 1 TAB PO DAILY CHOLESTEROL #90 TAB Prescribed by Tino Kenyon MD on 07/19/17 Hydrochlorothiazide 50 MG TABLET 1 TAB PO DAILY BP #30 TAB Prescribed by Tino Kenyon MD on 07/19/17 Montelukast Sodium 10 MG TABLET 1 TAB PO DAILY ALLERGIES #30 TAB Prescribed by Tino Kenyon MD on 07/19/17 Nicotine (Nicotine Patch) 21 MG/24 HOUR PATCH.TD24 21 MG TOP DAILY smoking cessation #15 PATCH Prescribed by Tino Kenyon MD on 07/19/17 Risperidone 2 MG TABLET 1 TAB PO BID MENTAL HEALTH #30 TAB Prescribed by Tino Kenyon MD on 07/19/17 Scheduled PRN Medications Nicotine (Nicorelief) 2 MG GUM 2 MG PO Q2P PRN SMOKING CRAVING #90 GUM Prescribed by Tino Kenyon MD on 07/19/17 Miscellaneous Medications Risperidone 3 MG TABLET 2 2MG HTN #30 (Reported) Entered as Reported by Addie Soliz on 08/08/17 1605 Past History Past Medical History Neurological: NONE EENT: allergies Cardiovascular: hypertension, hyperlipidemia Respiratory: CIGARETTE SMOKER Gastrointestinal: NONE Hepatic: NONE Renal: NONE Musculoskeletal: chronic back pain, osteoarthritis Psychiatric: alcohol dependence, bipolar disease Endocrine: NONE Blood Disorders: NONE Cancer(s): NONE 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 Childhood Family Constellation: Child reports he was adopted and lived with his mother, father and adopted siblings. Primary Childhood Caretakers: father, mother, step-parent (adoptive) Family Life During Childhood: "great, I was blessed with good parents" DCF Involvement? No Mother's Age (Current/): 77 Relationship w/Mother: "good" Relationship w/Father: "we didn't talk much, but we loved eachother". Any Sibling(s)? Yes Sibling's Gender(s)/Age(s): male Sibling 1:, male Sibling 2:, female Sibling 3: Relationship w/Sibling(s): "good" Relationship w/Friends: "we go to AA meetings together" Family Psych/Sub Abuse/Add Hx: unknown Abuse/Trauma History Trauma History/Current Trauma: Denies Abuse/Trauma Treatment: n/a Legal History Legal Guardian/Address/Phone: n/a Have you ever been arrested Yes Hx of Juvenile Legal Charges? No Hx of Adult Legal Charges? Yes If Yes: misdemeanor, felony List/Date Most Recent Lgl Chgs: "DUI, and some other stuff" Chgs/Dts/Incarcerations/Sentnc pt reports he was incarcerated 2 years ago and about 20 years ago, before he got sober. Civil Proceedings: none reported Domestic Relations Court: none reported Child Protective Serv Involvmnt none reported. Psychosocial History Primary Support System: ("), mother, AA Strengths/Capabilities: patient has maintained sobriety for many years, and is active in AA Weaknesses: Lacking support sysdtem outside of AA, PT refused to dislose certain infomation Physical Limitations (Interventions): none noted Last Physical: 12 months ago History of Seizures? No History of Blackouts? No ADL Limitations: none reported [place]/Social/Peer Relations Pt reports his friends are the people to attneds AA meetings with. They enjoy going to meetings together and hanging out after the meetings. Pt also reports he likes fishing and hunting, although reports he cannot huggins anymore because "the government doesnt want me to have a gun". Meaningful Activities: going to AA meetings, hunting, fishing Childhood Rastafari: no jainism stated, pt reports he is "very spiritual" but does not identify with a specific jainism because "all religions are always at war with eachother" Current Hindu Affiliation: no jainism stated, pt reports he is spiritual Is Spirituality Important to You? " why does it matter if it is or isnt ?" Patient's Ethnicity: (Argent[place]), Arabic Cultural/Ethnic Issues: none reported Are There Developmental Issues? Yes If Yes, Explain: learning troubles Milestones Achieved: fine motor, gross motor Psychiatric Treatment History Psych Treatment Inpatient Treatment Yes Outpatient Treatment Yes Location of Treatment [facility]; [facility] Reason for Treatment bipolar; paranoia Dates of Treatment last CPS discharge 07/19/17; currently in tx at [facility] Response to Treatment pt not compliant with meication or tx recommendation since discharge from [facility] Treatment of Prior Episodes: Bipolar Disorder Diagnosis: Bipolar disorder History of Alcohol Dependence in sustained remission. Psychodynamic Issues: none reported Risk Factors: high anxiety/distress, SA/MH hospitalized, male Substance Use/Abuse History Drug Use/Abuse:Min 12 mo hx Substance Used/Abused Alcohol First Use " A while ago" Last Used 21 yrs ago Route of use "oral" Have Had Periods of Sobriety? Yes Explain: 21 years Have You Ever Attended AA? Yes Do You Attend AA Currently? Yes Other Community Resources Used: N/A Substance Abuse Treatment Substance Abuse Treatment Inpatient Treatment Yes Outpatient Treatment Yes Location of Treatment [facility] Reason for Treatment etoh abuse Dates of Treatment 1990s Response to Treatment pt has remained sober past 20+ yrs Sexual History Sexually Active No Sexual Concerns: Pt reports he is not in a relationship and does not wish to ever be. Education History Highest Level of Education: high school/GED Highest Grade Completed: 12th Vocational Year Completed: n/a Number of College Years: 0 College Degree/Major: n/a Other Degree(s): n/a Preferred Learning Style: visual, auditory, experiential HX of Learning Difficulties: Learning Disabilities Barriers to Learning: pt reports trouble in school with reading and learning. He reports he was unable to focus in school and did not receive help from teachers. Special Communication Needs: None reported Employment History Employment Disability Not in Labor Force: on Social Security Disability No. of Jobs in Last 5 Years: 0 Attendance: unknown Performance: Average History Have You Been in The ? No If Yes, Explain: n/a Type of Discharge: n/a Date of Discharge: n/a Current Mental Status Mental Status Orientation: Person, Place, Situation Affect: Anxious, Angry, Inappropriate Speech: WNL Appearance Appearance- Dress/Hygiene: pt in hospital scrubs; laying on stretcher in hallway; intense eye contact; labile; paranoid Behaviors Thought Process: Disorganized, Irrational Thought Content: Auditory Hallucinations, Delusions, Paranoid, Visual Hallucinations Memory: Impaired Insight: Fair SI/HI Risk Assessment Past Suicidal Ideation/Attempts Yes Current Suicidal Ideation/Att No Past Homicidal Ideation/Att: No Current Homicidal Ideation/Attempts No Degree of Intent: None Gravely Disabled: Poor Judgment Risk Factors: High level of paranioa Lethality Ratin - Conclusion and Recommendations for treatment - and discharge planning Summary: pt presents as anxious, guarded and disorganized. Prominent paranoia. Pt verbalized needing medications adjusted.
[2017-08-09 15:38] VITALS: BP 125/74
--- NOTE | 2017-08-09 17:36 | SOCIAL WORKER PROG NOTE PSYCH ---
Social Work Progress Note Progress Note This documentation writer met with patient. He requested a meeting with his therapist and supportive employment case manager while still in the hospital to address concerns about how [facility] is managing his money - "It's mismanaged." Patient discussed the accumulation of multiple stressors that led to hospital admission. Patient identified financial stressors and discussed beliefs that the [place] police "took my log and made copies." Patient would not elaborate further on the contents of this log. Patient also discussed concerns that peers on [facility] are listening in on his conversations and hired by a drug dealer. Patient stated that he has been sober for 21 years and drug dealers and Lore [[facility] supportive employment case manager] are "fbert with my sobriety." Patient would not explain how. Patient stated that he does not want to return to [facility] due to being informed when he presented for the last intake that they would not address his primary emotions of anger and fear. Patient stated that he may be interested in scheduling a "family" meeting with his sponsor, but would like to ask him first. He stated that he would follow up with this documentation writer regarding this tomorrow.
[2017-08-09 19:41] VITALS: BP 110/77
--- NOTE | 2017-08-09 22:34 | PN- Att Addend ---
Attending Addendum Attending Brief Note Medical Brief Admit Note- Previous admit 07/15/17. S: The patient is a 52 yo male with h/o HTN, HL, and allergic rhinitis and h/o bipolar disorder/?schizophrenia who had a recent [facility] admission (07/16/17) for psychosis/paranoid feelings and hallucinations who was brought to [place] with psychotic behavior. He had stated that the government was tracking him and someone had laced his cigarettes. He expressed paranoid thoughts ad was very guarded. At the time of my exam he was also very guarded. He had previously been discharged on Risperdal and Depakote. O: VS: Vital Signs Date Time Temp Pulse Resp B/P B/P Pulse O2 O2 Flow FiO2 Mean Ox Delivery Rate 08/09 1941 98.3 85 110/77 08/09 1538 84 125/74 08/09 1219 92 141/79 08/09 0928 97 131/77 08/09 0759 97.8 97 131/77 Current Medications Sig/Mary Start time Last Medication Dose Route Stop Time Status Admin Acetaminophen 650 MG Q4P PRN 08/08 1600 DC PO Al Hydroxide/Mg 30 ML Q4-6 PRN PRN 08/08 1600 AC Hydroxide PO Amlodipine Besylate 5 MG DAILY 08/08 09 AC 08/09 PO 0928 Divalproex Sodium 500 MG DAILY 08/10 09 AC PO Divalproex Sodium 500 MG 08/10 0800 DC PO Divalproex Sodium 1,000 MG AT BEDTIME 08/09 2100 AC 08/09 PO 2050 Divalproex Sodium 500 MG ONCE ONE 08/09 1030 DC 08/09 PO 08/09 1031 1027 Divalproex Sodium 1,000 MG DAILY 08/08 0900 DC PO Fenofibrate 145 MG DAILY 08/08 0900 AC 08/09 PO 0927 Hydrochlorothiazide 50 MG DAILY 08/08 09 AC 08/09 PO 09 Ibuprofen 400 MG Q4P PRN 08/09 1430 AC 08/09 PO 1453 Lorazepam 1 MG Q4 HRS NEEDED PRN 08/08 1600 AC PO Magnesium Hydroxide 30 ML AT BEDTIME PRN 08/08 1600 AC PO Montelukast Sodium 10 MG DAILY 08/08 09 DC PO Nicotine 21 MG DAILY 08/08 09 AC TOP Risperidone 2 MG 08/10 08 AC PO Risperidone 3 MG AT BEDTIME 08/09 2100 AC 08/09 PO 2048 Risperidone 2 MG BID 08/08 899 DC 08/09 PO 927 Physical Exam: HEENT: eyes- PERRLA, EOMI osman- moist mucosa w/o lesions Neck: no bruits/JVD Chest: clear Cor: RRR, nl S1, S2 w/o murm Abd: BS+, soft, NT Ext: no edema, pulses 2+ Neuro: alert & oriented, paranoid, non-focal exam, gait normal, CN 2-12 intact Labs: Current Medications Sig/Mary Start time Last Medication Dose Route Stop Time Status Admin Divalproex Sodium 500 MG DAILY 08/10 09 AC PO Divalproex Sodium 500 MG 08/10 08 DC PO Risperidone 2 MG 08/10 08 AC PO Divalproex Sodium 1,000 MG AT BEDTIME 08/09 2100 AC 08/09 PO 2049 Risperidone 3 MG AT BEDTIME 08/09 2100 AC 08/09 PO 204 Ibuprofen 400 MG Q4P PRN 08/09 1430 AC 08/09 PO 1453 Divalproex Sodium 500 MG ONCE ONE 08/09 1030 DC 08/09 PO 08/09 1031 1027 Acetaminophen 650 MG Q4P PRN 08/08 1600 DC PO Al Hydroxide/Mg 30 ML Q4-6 PRN PRN 08/08 1600 AC Hydroxide PO Lorazepam 1 MG Q4 HRS NEEDED PRN 08/08 1600 AC PO Magnesium Hydroxide 30 ML AT BEDTIME PRN 08/08 1600 AC PO Amlodipine Besylate 5 MG DAILY 08/08 899 AC 08/09 PO 927 Divalproex Sodium 1,000 MG DAILY 08/08 899 DC PO Fenofibrate 145 MG DAILY 08/08 899 AC 08/09 PO 926 Hydrochlorothiazide 50 MG DAILY 08/08 899 AC 08/09 PO 926 Montelukast Sodium 10 MG DAILY 08/08 899 DC PO Nicotine 21 MG DAILY 08/08 899 AC TOP Risperidone 2 MG BID 08/08 899 DC 08/09 PO 927 Laboratory Tests 08/08/17 0151: Anion Gap 14, Estimated GFR > 60, BUN/Creatinine Ratio 10.0, Glucose 117 H, Calcium 10.2, Total Bilirubin 0.3, AST 27, ALT 34, Alkaline Phosphatase 47, Total Protein 7.4, Albumin 4.4, Globulin 3.0, Albumin/Globulin Ratio 1.5, CBC w Diff NO MAN DIFF REQ, RBC 5.13, MCV 86.7, MCH 28.9, MCHC 33.3, RDW 14.0, MPV 8.6 , Gran % 56.2, Lymphocytes % 30.6, Monocytes % 9.8 H, Eosinophils % 2.8, Basophils % 0.6, Absolute Granulocytes 5.3, Absolute Lymphocytes 2.9, Absolute Monocytes 0.9 H, Absolute Eosinophils 0.3, Absolute Basophils 0.1, Valproic Acid 38.5 L, Serum Alcohol < 10.0 08/08/17 0143: Valproic Acid Cancelled 08/08/17 0140: Urine Opiates Screen < 100, Methadone Screen < 40, Barbiturate Screen < 60, Ur Phencyclidine Scrn < 6.00, Amphetamines Screen < 100, U Benzodiazepines Scrn < 85, Urine Cocaine Screen < 50, Urine Cannabis Screen < 5.00 Impression/Plan: #Psychosis- with h/o bipolar/?schizophrenia. Patient is extremely paranoid. Difficult to perform exam due to this. Plan: Admit to [facility]. Care as per psychiatry. #HTN- BP stable. Plan: Continue Amlodipine/HCTZ. #H/O Allergic Rhinitis- on Singulair. Plan: Continue Singulair. #Nicotine Dependence- smoker. Has had Nicotine Patch. Plan: Continue Nicoderm.
[2017-08-10 07:47] VITALS: BP 122/78
--- NOTE | 2017-08-10 08:20 | CP SOUTH PROGRESS NOTE PSYCH ---
Psych (Inpt) Progress Note Progress Note Vital Signs Date Time Temp Pulse B/P 08/10 0747 96.9 79 122/78 08/09 1941 98.3 85 110/77 08/09 1538 84 125/74 08/09 1219 92 141/79 Mental Status Examination The patient was alert and oriented to time + place + person. Patient was calm and much less irritable compared to yesterday. He showed normal psychomotor activity, no agitation, and no restlessness. He did not show any bizarre or abnormal behaviors. Today, he was not talkative, nor pressured. He reported that he's feeling defeated by life and is 'giving up fighting." Somewhat anxious, depressed, and fearful/paranoid Today, he did not mention "shooting self in the head" at all but he is still demoralized and somewhat hopeless. he does not have access to firearms. He denied thinking of violence or homicide, he denied hallucinations, Although he does not think of himself as paranoid, he has multiple paranoid thoughts/delusions about the [employer], [facility], the parking lot attendant and cashier at [facility], someone lacing his cigarettes with something, etc. The patient has only mild difficulty with thought organization he was mainly coherent Poor insight, poor judgment. Patient has difficulties with attention and concentration. Patient did not have difficulties with short-term memory. Assessment: Jorge is a 54-year-old Single White Male who presents with multiple paranoid delusions involving [employer], [facility], [facility]'s parking lot attendant and cashier, drug dealers in the area, and people lacing his cigarettes with something. Diagnosis: Schizoaffective disorder bipolar type Treatment Plan: Resume Singulair 10 mg daily (patient claims that he was coughing last night and attributes that to not having singular) Continue Depakote 500 mg in the morning and 1000 mg at bedtime Increase Risperdal 2 mg in the morning and 4 mg at bedtime
[2017-08-10 12:37] VITALS: BP 124/77
--- NOTE | 2017-08-10 15:06 | SOCIAL WORKER PROG NOTE PSYCH ---
See Addendum Social Work Progress Note Progress Note This designer/writer met with patient. He stated that "I wrote some stuff down as I'm preparing to be cremated." He was not willing to share this with this designer/writer, however, stated that he spoke with his sister about this by phone last night. This designer/writer inquired as to why patient is preparing to be cremated, to which he explained that nothing is guaranteed and no one knows how long they will live. He denied SI and did not expect to any time soon. Patient then stated, "I'm tired of fighting the medicine and fighting people about finances." Patient welcomed the idea of scheduling a meeting with his telephonic nurse case manager (Lore Donnelly, [facility]) to discuss his financial concerns. Patient also expressed interest in a family meeting with his sister, Do Joel ([phone]). He stated that he was unable to reach his sponsor and would continue to try to do so. Patient denied SI/HI/VH. He stated that he continues to experience AH and described them as "just voices." Patient presented as tearful during part of this meeting , depressed and disorganzied. Patient was calm, demonstrated good eye contact and responded to questions without delay. 1:48pm This designer/writer returned call from Linda ([facility], ) in which she inquired about patient's status. She was informed that patient expressed interest in meeting with Lore Donnelly, who will be contacted regarding this meeting once patient appears more organized in thought. 3:05pm: This designer/writer left for Do Joel with call back number.
[2017-08-10 16:23] VITALS: BP 135/75
[2017-08-10 19:42] VITALS: BP 137/81
[2017-08-11 07:40] VITALS: BP 98/67
[2017-08-11 12:13] VITALS: BP 112/76
--- NOTE | 2017-08-11 15:48 | CP SOUTH PROGRESS NOTE PSYCH ---
Psych (Inpt) Progress Note Progress Note Vital Signs Date Time Temp Pulse Resp B/P B/P O2 FiO2 08/11 1213 81 112/76 08/11 0753 97.8 75 20 98/67 08/11 0740 97.8 75 Mental Status Examination The patient was alert and oriented to time + place + person. He was calm/much less irritable, normal psychomotor activity/no agitation, no restlessness, no bizarre or abnormal behaviors. not talkative, nor pressured Today, he did not seem to be as hopeless about his life and was not feeling as defeated as he was yesterday Denied wishing or thinking of suicide, he seemed less anxious, less depressed, and less fearful/paranoid He denied thinking of violence or homicide, he denied hallucinations, Today, he did not bring up any of his previous multiple paranoid thoughts/ delusions about the [employer], [employer], the cashier payments received at [facility], someone lacing his cigarettes with something, mild difficulty with thought organization he was mainly coherent Poor insight, poor judgment. Patient has difficulties with attention and concentration Assessment: Jorge is a 54-year-old Single White Male who presents with multiple paranoid delusions involving [employer], [employer], [facility]'s cashier payments received, drug dealers in the area, and people lacing his cigarettes with something. Diagnosis: Schizoaffective disorder bipolar type Treatment Plan: Continue same treatment plan
[2017-08-11 16:01] VITALS: BP 130/77
--- NOTE | 2017-08-11 17:18 | SOCIAL WORKER PROG NOTE PSYCH ---
Social Work Progress Note Progress Note This credit underwriter met with patient. He described his mood as "it's ok." He discussed trying to decide where he will live after he discharges. Upon this credit underwriter's inquiry, patient stated that he had been living with his mother and while he believes that he can return he still questions this. Patient discussed feeling mistrust towards his nieghbors, affecting his comfort with returning to his mother. Patient was informed that this credit underwriter spoke with his sister, Do, and a family meeting will be scheduled at some point prior to discharge. He was agreeable to discussing housing concerns furhter with his sister during the family meeting. Patient presented as depressed, disorganized. He was spontaneously engaged in this conversation. He denied SI/HI/AH/VH.
[2017-08-11 20:07] VITALS: BP 144/92
[2017-08-12 07:36] VITALS: BP 132/83
[2017-08-12 12:09] VITALS: BP 127/81
[2017-08-12 15:40] VITALS: BP 116/80
--- NOTE | 2017-08-12 15:45 | CP SOUTH PROGRESS NOTE PSYCH ---
Psych (Inpt) Progress Note Progress Note Vital Signs Date Time Temp Pulse Resp B/P 08/12 1540 75 116/80 08/12 1209 87 127/81 08/12 0852 97.6 74 20 132/83 Mental Status Examination The patient was alert and oriented to time + place + person. He was calm/much less irritable, normal psychomotor activity/no agitation, no restlessness, no bizarre or abnormal behaviors. not talkative, nor pressured did not seem to be as hopeless about his life and was not feeling as defeated as he was yesterday Denied wishing or thinking of suicide, he seemed less anxious, less depressed, and less fearful/paranoid He denied thinking of violence or homicide, he denied hallucinations, less paranoid thoughts/delusions (about [facility], [facility], the field consultant at [facility], someone lacing his cigarettes with something) He was mostly coherent with mild difficulty with thought organization Poor insight, poor judgment, difficulties with attention and concentration Assessment: Jorge is a 54-year-old Single White Male who presents with multiple paranoid delusions involving government, [facility], [facility] field consultant, drug dealers in the area, and people lacing his cigarettes with something. Diagnosis: Schizoaffective disorder bipolar type Treatment Plan: Continue same treatment plan Continue same treatment plan
--- NOTE | 2017-08-12 18:01 | SOCIAL WORKER PROG NOTE PSYCH ---
Social Work Progress Note Progress Note Mauricio Campuzano, BREAKER UNIT [employer]SEMBLER student and this music writer met with the patient. He described his mood as "stable" and reported decrease in fear and anger. Patient clarified that his fear is related to his neighbors at home and his anger is related to feeling that his money is being mis-managed by Care/Lore Donnelly, rifle case repairer. Patient stated that he would like to meet with Lore prior to discharge to address his concerns. He denied having any violent thoughts associated with his anger. Patient stated that he would also like to have a family meeting with his sister before discharge. Patient denied SI/HI/AH/VH. This music writer explored the possibility of returning to [facility] for an intake and to engage in their treatment. He stated "I choose not to pee in a cup." He stated that he does not currently use substances, but he worries that the water that he drinks at night (at home) could be tainted which would result in a "dirty" toxicology screen. Patient explained that there have been times that he has had a glass of water prior to going to bed and wakes up to a headache. He identifies this as evidence that something was added to his water without his knowledge. Patient stated that he feels support, comfort, safety and no criticism by family, friends and his providers/doctors. He would like to return to [facility] for oupatient treatment. Patient is also considering alternate housing options and will discuss this with his sister prior to the family meeting.
[2017-08-12 19:52] VITALS: BP 139/85
[2017-08-13 07:59] VITALS: BP 129/75
[2017-08-13 13:22] VITALS: BP 131/72
--- NOTE | 2017-08-13 14:13 | CP SOUTH PROGRESS NOTE PSYCH ---
Psych (Inpt) Progress Note Progress Note Chief Complaint Discussed overnight events with RN and staff. Per RN the patient refused to take his nighttime medications due to evening sedation. As per RN report, the patient appeared to be sleeping at night but was restless and was awake couple times to the nursing station. No PRNs/restrains required in the last 24hrs. I saw the patient with the treatment team this morning. The patient reported feeling loopy and sedated at the evening he claims that the recent increase in Risperidone as the main reason. He described his mood as good He reported sleeping well although he continues be paranoid and delusional as evident be feeling that the drug dealers are after him. He denies suicidal/homicidal ideations/intent/plans. He denies audiovisual hallucinations. He is compliant to medications, although he refused yesterday bedtime doses of Depakote and Risperidone due to sedation. He denies suicidal/homicidal thoughts/intent/plans at present. He is visible in the unit, interacting with peers and no safety concerns. Vitals reviewed Vital Signs Result Date Time B/P 129/72 08/13 1622 Pulse 80 08/13 1622 Temp 97.7 08/13 0814 Resp 20 08/13 0814 Pulse Ox 95 08/08 1527 O2 Delivery Room Air 08/08 1527 Mental Status Examination Consciousness: Awake, alert Orientation: A&O x4: person, place, year, and situation Appearance: appears stated age, dressed in casual attire, fair hygiene, shaved Behavior: calm and cooperative Attitude: open and engaged Eye Contact: appropriate Speech: spontaneous, clear, coherent, regular rate and rhythm??~ Mood: good Affect: mood-congruent, restricted with minimal emotional reactivity~ Thought Process: organized but slow Thought Content: delusional, paranoid drug dealers are following me, denies suicidal/homicidal ideations at the time of the interview, no bipolar features elicited at present Perceptions: denied hallucinations at time of interview Attention: distractibility Memory: grossly intact immediate, recent and remote Insight: limited Judgment: limited No psychomotor changes Motor: no abnormal movements, Gait WNL Neuro: grossly intact cranial nerves, posture, tone Independent in ADL's and iADL's Labs Reviewed as documented in chart. Allergy Reviewed as documented in chart. Medications Reviewed as documented in chart. Current Medications Sig/Mary Start time Last Medication Dose Route Stop Time Status Admin Al Hydroxide/Mg 30 ML Q4-6 PRN PRN 08/08 1600 AC Hydroxide PO Amlodipine Besylate 5 MG DAILY 08/08 09 AC 08/13 PO 0814 Benzocaine/Menthol 1 MIKE Q2P PRN 08/10 2045 AC PO Divalproex Sodium 500 MG DAILY 08/10 09 AC 08/13 PO 0813 Divalproex Sodium 1,000 MG AT BEDTIME 08/09 2100 AC 08/11 PO 2148 Fenofibrate 145 MG DAILY 08/08 09 AC 08/13 PO 0814 Hydrochlorothiazide 50 MG DAILY 08/08 09 AC 08/13 PO 0813 Ibuprofen 400 MG Q4P PRN 08/09 1430 AC 08/09 PO 1453 Loratadine 10 MG DAILY 08/12 1103 AC 08/13 PO 0813 Lorazepam 1 MG Q4 HRS NEEDED PRN 08/08 1600 AC PO Magnesium Hydroxide 30 ML AT BEDTIME PRN 08/08 1600 AC PO Montelukast Sodium 10 MG DAILY 08/10 09 AC 08/13 PO 0814 Risperidone 3 MG AT BEDTIME 08/13 2100 AC PO Risperidone 4 MG AT BEDTIME 08/10 2100 DC 08/11 PO 2147 Risperidone 2 MG 08/10 08 AC 08/13 PO 0813 Assessment Jorge is a 54-year-old Single White Male who continues to have paranoid delusions. He is complaining of evening sedation while on 4mg of Risperidone at bedtime. He is requesting to lower the Risperidone to 3mg. No mood dysregulation at present. Diagnosis Schizoaffective disorder, bipolar type Treatment Plan Decrease Risperidone 3mg bedtime for mood and psychosis (from 4mg) due to evening sedation Continue other medication regimen as ordered Continue current treatment plan The patient was educated about reasons for prescribing the above medications, expected benefits and likelihood of clinical improvement, as well as potential side effects and relevant risks; treatment alternatives and side effects of the alternatives expected course without treatment and results of not receiving care. The Patient was educated on how to take the medications. He verbalized understanding and in agreement with the treatment plan.
[2017-08-13 16:22] VITALS: BP 129/72
[2017-08-13 20:04] VITALS: BP 130/76
[2017-08-14 08:00] VITALS: BP 123/71
[2017-08-14 11:54] VITALS: BP 126/72
[2017-08-14 15:56] VITALS: BP 128/74
--- NOTE | 2017-08-14 18:07 | CP SOUTH PROGRESS NOTE PSYCH ---
Psych (Inpt) Progress Note Progress Note Chief Complaint Discussed overnight events with RN and staff. No PRNs/restrains required in the last 24hrs. As per RN report, the patient slept well. I saw the patient with the treatment team this morning. The patient reported feeling better he was interacting with peer in the dinning room. He appears brighter less sedated, but continues to have delusions about the drug dealers who are after him. No safety concerns. Has adequate sleep and fair appetite, compliant to the medications. He reported what are you going to do to my fears from the drug dealers and my anger? then stated "I do not like this office" Vitals reviewed Vital Signs Result Date Time B/P 142/78 08/15 2015 Temp 98.3 08/15 2015 Pulse 67 08/15 2015 Resp 20 08/14 09 Pulse Ox 95 08/08 152 O2 Delivery Room Air 08/08 1527 Mental Status Examination Consciousness: Awake, alert Orientation: A&O x3: person, place, year, but not to situation Appearance: appears stated age, dressed in casual attire, fair hygiene Behavior: calm and somewhat cooperative Attitude: open and engaged Eye Contact: appropriate Speech: spontaneous, clear, coherent, regular rate and rhythm??~ Mood: good Affect: mood-congruent, restricted with minimal emotional reactivity~ Thought Process: disorganized at times Thought Content: delusional, paranoid drug dealers are after me, denies suicidal/homicidal ideations at the time of the interview, no bipolar features elicited at present Perceptions: denied hallucinations at time of interview Attention: distractible Memory: grossly intact remote Insight: limited Judgment: limited No psychomotor changes Motor: no abnormal movements Neuro: grossly intact cranial nerves, posture, tone Independent in ADL's and iADL's Labs Reviewed as documented in chart. Allergy Reviewed as documented in chart. Medications Reviewed as documented in chart. Current Medications Sig/Mary Start time Last Medication Dose Route Stop Time Status Admin Al Hydroxide/Mg 30 ML Q4-6 PRN PRN 08/08 1600 AC Hydroxide PO Amlodipine Besylate 5 MG DAILY 08/08 09 AC 08/14 PO 927 Benzocaine/Menthol 1 MIKE Q2P PRN 08/10 2045 AC PO Divalproex Sodium 500 MG DAILY 08/10 899 AC 08/14 PO 928 Divalproex Sodium 1,000 MG AT BEDTIME 08/09 2100 AC 08/13 PO 2020 Fenofibrate 145 MG DAILY 08/08 09 AC 08/14 PO 0928 Hydrochlorothiazide 50 MG DAILY 08/08 09 AC 08/14 PO 0929 Ibuprofen 400 MG Q4P PRN 08/09 1430 AC 08/09 PO 1453 Loratadine 10 MG DAILY 08/12 1103 AC 08/14 PO 0928 Lorazepam 1 MG Q4 HRS NEEDED PRN 08/08 1600 AC PO Magnesium Hydroxide 30 ML AT BEDTIME PRN 08/08 1600 AC PO Montelukast Sodium 10 MG DAILY 08/10 0900 AC 08/14 PO 0928 Risperidone 3 MG AT BEDTIME 08/13 2100 AC 08/13 PO 2020 Risperidone 2 MG 0808/10 08 AC 08/14 PO 09 Assessment Jorge is a 54-year-old Single White Male who continues to have paranoid delusions. He continues to have delusions and paranoia. Diagnosis Schizoaffective disorder, bipolar type Treatment Plan Continue current medication regimen
[2017-08-14 20:16] VITALS: BP 142/78
[2017-08-15 07:42] VITALS: BP 109/76
[2017-08-15 12:11] VITALS: BP 136/75
--- NOTE | 2017-08-15 12:50 | CP SOUTH PROGRESS NOTE PSYCH ---
Psych (Inpt) Progress Note Progress Note Vital Signs Date Time Temp Pulse B/P B/P Pulse O2 O2 Flow FiO2 08/15 1211 77 136/75 08/15 0854 80 109/76 08/15 0742 96.9 80 109/76 08/15 2015 98.3 67 142/78 08/14 1556 86 128/74 Mental Status Examination: The patient still has some lingering paranoia. He, however, showed gradual improvement in the intensity of the paranoid delusions as well as in their frequency. The patient has not brought his paranoid delusions as spontaneously and the have to be elicited by asking the patient specifically questions. The patient was alert and oriented to time + place + person. He was calm/much less irritable, normal psychomotor activity/no agitation, no restlessness, no bizarre or abnormal behaviors. not talkative, nor pressured, did not seem to be as hopeless about his life and was not feeling as defeated as he was yesterday, Denied wishing or thinking of suicide, he seemed less anxious, less depressed, denied thinking of violence or homicide, he denied hallucinations, He was mostly coherent with mild difficulty with thought organization Poor insight, poor judgment, difficulties with attention and concentration Assessment: Jorge Lindsey is a 54-year-old Single White Male who was admitted to the inpatient psychiatric unit on 08/08/2017 with multiple paranoid delusions involving government, [facility], [employer] service cashier, drug dealers in the area, and people lacing his cigarettes with something. Diagnosis: Schizoaffective disorder, bipolar type Treatment Plan: The patient insisted on changing the milligrams of Risperdal into 2 different tablets: one with a 2 mg strength and another with 1 mg strength (based on paranoid delusions about the 3 mg tablet
[2017-08-15 15:41] VITALS: BP 142/75
--- NOTE | 2017-08-15 18:24 | SOCIAL WORKER PROG NOTE PSYCH ---
Social Work Progress Note Progress Note This screenplay writer met with patient. He described his mood as "frustrated about finances." He denied SI/HI/AH/VH. Patient and this screenplay writer called his mental health case manager, Lore Donnelly ([phone]), and scheduled a meeting for 08/16/17 at 10:15am. Patient shared his proposed budget in which he had created a very organized chart to address this. He would like to share this with Lore tomorrow. Patient was also informed that this screenplay writer spoke with his sister, Do Joel, just prior to meeting and a family meeting is scheduled for 08/18/17 at 11am.
[2017-08-15 19:45] VITALS: BP 132/79
[2017-08-16 07:40] VITALS: BP 109/71
[2017-08-16 12:15] VITALS: BP 121/69
--- NOTE | 2017-08-16 13:41 | CP SOUTH PROGRESS NOTE PSYCH ---
Psych (Inpt) Progress Note Progress Note Vital Signs Date Temp Pulse Resp B/P 08/16 87 121/69 08/16 97.0 71 20 109/71 Mental Status Examination: Pt. continues to have lingering paranoia (slightly less intense paranoid delusions, met with [facility]'s database development project manager) The patient was alert and oriented to time + place, and person. He was calm/less irritable, normal psychomotor activity/no agitation, no restlessness, no bizarre or abnormal behaviors. Pt. was not talkative, nor pressured, did not seem to be as hopeless about his life and was not feeling as defeated as he was yesterday, Denied wishing or thinking of suicide, he seemed less anxious, less depressed, denied thinking of violence or homicide, he denied hallucinations, He was mostly coherent with mild difficulty with thought organization. He exhibits poor insight, poor judgment, and some difficulties with attention and concentration Assessment Update: Jorge Lindsey is a 54-year-old Single White Male who was admitted to [facility] on 08/08/2017 with multiple paranoid delusions involving government, [facility], [employer], drug dealers in the area, and people lacing his cigarettes with something. He showing slow improvement Diagnosis: Schizoaffective Disorder, bipolar type Treatment Plan: Amlodipine Besylate 5 MG DAILY 08/08 899 AC Benzocaine/Menthol 1 MIKE Q2P PRN 08/10 2044 AC Divalproex Sodium 500 MG DAILY 08/10 899 AC Divalproex Sodium 1,000 MG AT BEDTIME 08/09 2099 AC Fenofibrate 145 MG DAILY 08/08 899 AC Hydrochlorothiazide 50 MG DAILY 08/08 899 AC Loratadine 10 MG DAILY 08/12 1103 AC Lorazepam 1 MG Q4 HRS NEEDED PRN 08/08 1600 AC Magnesium Hydroxide 30 ML AT BEDTIME PRN 08/08 1600 AC Montelukast Sodium 10 MG DAILY 08/10 899 AC Risperidone 2 MG AT BEDTIME 08/15 2099 AC Risperidone 1 MG AT BEDTIME 08/15 2100 AC Risperidone 2 MG 08/10 0800 AC
[2017-08-16 15:55] VITALS: BP 141/87
--- NOTE | 2017-08-16 17:26 | SOCIAL WORKER PROG NOTE PSYCH ---
Social Work Progress Note Progress Note This report writer met with patient and his embedded case manager, Lore Donnelly. Patient shared his proposed budget with Lore. Lore shared that the patient had applied to live at [facility], however, due to inpatient admission was unable to take the available bed. She stated that he would remain on the waiting list. Furthermore, she stated that the patient needs to go to the police station to redo his fingerprints and stated that she could provide a ride if needed. Lore will also continue to explore additional housing options such as [place] and [facility], neither of whom have available beds. Patient will stay with his mother while a waits for a bed. Patient stated that he had explored an option of renting a room which is above a [employer] store. However, he acknowledged that this would not be a villalobos decision due to the risk of use. Patient appeared more agreeable to continue to work with Lore following discharge, and expressed this as well. This report writer confirmed with the patient and Lore that a family meeting is scheduled for 08/18/17 with the patient's sister.
[2017-08-16 20:06] VITALS: BP 137/82
[2017-08-17 07:46] VITALS: BP 126/77
--- NOTE | 2017-08-17 10:08 | CP SOUTH PROGRESS NOTE PSYCH ---
Psych (Inpt) Progress Note Progress Note Include the following elements, when applicable: Involvement in the active treatment of the patient with behavioral observations of the patient and the patient's response to the treatment. Review of the ongoing treatment process in the context of the treatment plan. Indication of how multi-disciplinary staff members are carrying out the treatment plan. Plans for future interventions and recommendations for revision of the treatment plan. Liaison with other physicians/providers. Progress Note: Oddly related, makes odd statements, but overall coherent. He did not want to give me details about what was going on with him recently, stated that he wants to talk about his future then rather than now, that this is privileged information and that he has other plans which he will discuss tomorrow at the family meeting. Made odd statements such as his life has changed and continues to change that the medication changes are because, the stress of society has reached of its peak and everyone is sick of stress and now my medicine has to be increased to. Everyone has to get stressed out or change the government. Appears to be improving compared to admission, no behavioral issues on the unit. MSE: middle aged man, calm, staring at times, well groomed and with good hygiene. Mood is neutral, affect is constricted to blunted. Very little blinking. Thought process is largely coherent but some tangential, odd and disorganized statements. No gross paranoia but comments about the government are present. Denies wanting to harm himself or anyone else. Insight to residual symptoms is near absent, but agreeing to treatment. Judgment is fair. Cognition appears grossly intact. 54 year old man with psychotic illness, presented over a week ago with multiple paranoid, persecutory delusions, about the government, [employer], etc. he has been stabilizing clinically, with residual oddness in affect and tangential thinking, but not as grossly disorganized as he was on admission. He has risks associated with his residual psychiatric symptoms which are being addressed with medication adjustments, groups, and family meetings; and discussion about follow up with outpatient care. Continue current plan of care.
[2017-08-17 11:51] VITALS: BP 116/77
[2017-08-17 15:43] VITALS: BP 116/76
[2017-08-17 20:09] VITALS: BP 112/79
[2017-08-18 07:39] VITALS: BP 122/78
--- NOTE | 2017-08-18 07:50 | CP SOUTH PROGRESS NOTE PSYCH ---
Psych (Inpt) Progress Note Progress Note Vital Signs Date Time Temp Pulse Resp B/P B/P O2 FiO2 08/18 1156 104 110/78 08/18 0756 97.7 88 20 122/78 08/18 0739 97.7 88 122/78 08/17 2008 98.8 75 112/79 Family meeting with patient's sister Mental Status Examination: This morning the patient was somewhat irritable. Paranoia is improving, although he still have some undercurrent of paranoia. No specific delusions. Still have some thought disorder but overall coherent alert and oriented to time + place, and person. no bizarre or abnormal behaviors. Pt. was not talkative, not pressured, denied feeling hopeless about his life and was not feeling as defeated as last week, He denied wishing or thinking of suicide, he seemed less anxious, less depressed, denied thinking of violence or homicide, he denied hallucinations, poor judgment, and some difficulties with attention and concentration Assessment Update: Jorge Lindsey is a 54-year-old Single White Male who was admitted to [facility] on 08/08/2017 with multiple paranoid delusions involving government, [facility], [employer], drug dealers in the area, and people lacing his cigarettes with something. Since his admission on 08/08/2017, the patient has been showing gradual improvement in his paranoia and thought disorder. He has been denying thoughts of suicide. Diagnosis: Schizoaffective Disorder, bipolar type Treatment Plan: Divalproex Sodium 500 MG DAILY Divalproex Sodium 1,000 MG AT BEDTIME Lorazepam 1 MG Q4 HRS NEEDED PRN Risperidone 2 MG AT BEDTIME Risperidone 1 MG AT BEDTIME Risperidone 2 MG 0800 Fenofibrate 145 MG DAILY 08/08 899 AC Hydrochlorothiazide 50 MG DAILY 08/08 899 AC Loratadine 10 MG DAILY 08/12 1103 AC Lorazepam 1 MG Q4 HRS NEEDED PRN 08/08 1600 AC Magnesium Hydroxide 30 ML AT BEDTIME PRN 08/08 1600 AC Montelukast Sodium 10 MG DAILY 08/10 09 AC Risperidone 2 MG AT BEDTIME 08/15 2100 AC Risperidone 1 MG AT BEDTIME 08/15 2100 AC Risperidone 2 MG 0800
[2017-08-18 11:56] VITALS: BP 110/78
[2017-08-18 15:39] VITALS: BP 130/81
--- NOTE | 2017-08-18 17:45 | SOCIAL WORKER PROG NOTE PSYCH ---
Social Work Progress Note Progress Note Dr. Kenyon and this senior underwriter met with the patient and his sister, Do Joel , for a family meeting. Patient and his sister explained that the patient cannot return home to his mother's house. Do stated that their mother is struggling with Parkinsons and is unable to cope with the patient's symptoms/ behaviors. Do also shared that she does not feel that the patient is ready for discharge as he is still demonstrating "obsessive and stressed" behaviors. Do asks to be contacted next week for an update/progress report and anticipated discharge date. Patient will continue to work with Lore Donnelly regarding financial issues as well as exploring other programs/living arrangements. He stated that he has been sober for 21 years. He earns $1468 per month and states that he can afford $700 per month for rent. He stated that he would be interested in exploring the room above the [employer] and does not have any concerns about living in that environment. Do stated that her concern is not relapse, rather the patient being around certain people that go to the [employer] store and how this might impact his anxiety/paranoia. Ellen described the patient's baseline as "regular" and "no paranoia of leg movements. " Regarding leg movements, she explained that she was referring to his leg "bouncing" while we were sitting at the table during the family meeting. Patient approached this senior underwriter after the meeting and expressed interest in a Crisis and Respite referral. 5:41pm This senior underwriter left for Lore Donnelly regarding housing ([phone], ext. [phone]). informed that this senior underwriter will be away and the covering vp digital marketing social media and crm can be reached at [phone].
[2017-08-18 20:14] VITALS: BP 145/78
[2017-08-19 07:48] VITALS: BP 114/74
--- NOTE | 2017-08-19 08:37 | CP SOUTH PROGRESS NOTE PSYCH ---
Psych (Inpt) Progress Note Progress Note Treatment team (BOB, RN, Group and Activities Therapist, and psychiatrist) discussed Pt.'s progress, treatment plan, and aftercare plans. Vital Signs Date Time Temp Pulse B/P 08/19 1000 114/74 08/19 0748 97.1 72 114/74 08/18 2013 99.3 84 145/78 Mental Status Update: less irritable, less paranoia, no specific delusions, still having a thought disorder but overall coherent. He was alert and oriented to time, place, and person. There were no bizarre or abnormal behaviors. Pt.'s speech was normal/ not talkative, not pressured, He denied feeling hopeless about his life and was not feeling as defeated as last week. He denied wishing or thinking of suicide, he seemed less anxious, less depressed, denied thinking of violence or homicide, he denied hallucinations. Assessment Update: Jorge Lindsey is a 52-year-old Single White Male who was admitted with multiple paranoid delusions involving government, [facility], [employer], drug dealers in the area, and people lacing his cigarettes with something. Since his admission on 08/08/2017, the patient has been showing gradual improvement in his paranoia and thought disorder. He has been denying thoughts of suicide. Diagnosis: Schizoaffective Disorder, bipolar type Treatment Plan Update: Continue Divalproex 500 MG in AM and 1,000 MG AT BEDTIME Lorazepam 1 MG Q4 HRS NEEDED PRN Risperidone 2 MG in AM and 3 mg at bedtime Lorazepam 1 MG Q4 HRS NEEDED PRN Risperidone 2 MG AT BEDTIME Risperidone 1 MG AT BEDTIME Risperidone 2 MG 0800
[2017-08-19 12:04] VITALS: BP 122/73
[2017-08-19 15:37] VITALS: BP 133/75
--- NOTE | 2017-08-19 19:20 | SOCIAL WORKER PROG NOTE PSYCH ---
Social Work Progress Note Progress Note Clinician met with pt 1:1 he seem goal directed and shared a budget that he completed to pursue getting an efficiency apartment in [place] that he said would cost him $650 monthly. He has acknowledge and accepted that he cannot return to living with his mother. Pt received a distressing phone call from Lore Donnelly from [facility] who shared with him that the apartment in [place] is "not a viable option". As a result, Lore is asking the [place] team to make referrals to shelters at this time. Pt was visibly upset by this news from Lore and he reponded by saying it is a lot to take in. However, pt thank Lore Donnelly for talking to him. Pt was informed that with this information his discharge might not actually happen next week. Pt denies SI/HI and AH/VH.
[2017-08-19 19:59] VITALS: BP 132/85
[2017-08-20 07:55] VITALS: BP 113/68
[2017-08-20 12:04] VITALS: BP 114/73
--- NOTE | 2017-08-20 14:05 | CP SOUTH PROGRESS NOTE PSYCH ---
Psych (Inpt) Progress Note Progress Note Vital Signs Date Time Temp Pulse Resp B/P B/P Pulse O2 O2 Flow FiO2 08/20 1204 82 114/73 08/20 0928 71 113/68 08/20 0755 97.0 71 113/68 08/19 1959 98.4 98 132/85 08/19 1537 93 133/75 Mental Status Update: Patient is perseverating/obsessing about his budget He has an awkward sense of humor today less irritable, less paranoia, no specific delusions, Although he is still having a thought disorder, he is--overall--coherent. He was alert and oriented to time, place, and person. There were no bizarre or abnormal behaviors. Pt.'s speech was normal/not talkative, not pressured, He denied feeling hopeless about his life and was not feeling as defeated as last week. He denied wishing or thinking of suicide, he seemed less anxious, less depressed, denied thinking of violence or homicide, he denied hallucinations. Assessment Update: Jorge Lindsey is a 52-year-old Single White Male who was admitted with multiple paranoid delusions involving [facility], [facility], [employer], drug dealers in the area, and people lacing his cigarettes with something. Since his admission on 08/08/2017, the patient has been showing slow and gradual improvement in his paranoia and thought disorder. He has been denying thoughts of suicide. Diagnosis: Schizoaffective Disorder, bipolar type Treatment Plan Update: Reduce divalproex to 250 mg in AM and 1,000 MG AT BEDTIME Start sertraline 25 mg once daily starting today Lorazepam 1 MG Q4 HRS NEEDED PRN Risperidone 2 MG in AM and 3 mg at bedtime
[2017-08-20 16:00] VITALS: BP 119/77
[2017-08-20 20:26] VITALS: BP 140/74
[2017-08-21 07:35] VITALS: BP 104/70
--- NOTE | 2017-08-21 08:21 | CP SOUTH PROGRESS NOTE PSYCH ---
Psych (Inpt) Progress Note Progress Note Vital Signs Date Time Temp Pulse Resp B/P B/P Pulse O2 O2 Flow FiO2 Mean Ox Delivery Rate 08/21 1156 88 142/59 08/21 0845 69 104/70 08/21 0735 97.2 69 104/70 08/207 81 08/20 2025 98.2 140/74 08/20 1600 84 119/77 No new labs Mental Status Update: Patient looked tired this morning, no perseveration about his budget He is less irritable, less paranoid there were no specific delusions today, mild thought disorder, he is--overall--coherent. He was alert and oriented to time, place, and person. There were no bizarre or abnormal behaviors. Pt.'s speech was normal/not talkative, not pressured, He denied feeling hopeless about his life, denied wishing or thinking of suicide, he seemed less anxious, less depressed, denied thinking of violence or homicide, he denied hallucinations. Assessment Update: Jorge Lindsey is a 52-year-old Single White Male who was admitted with multiple paranoid delusions involving [facility], [facility], [employer], drug dealers in the area, and people lacing his cigarettes with something. Since his admission on 08/08/2017, the patient has been showing slow and gradual improvement in his paranoia and thought disorder. He has been denying thoughts of suicide. Diagnosis: Schizoaffective Disorder, bipolar type Treatment Plan Update: Increase sertraline to 50 mg once daily continue other meds unchanged
[2017-08-21 11:56] VITALS: BP 142/59
[2017-08-21 16:01] VITALS: BP 144/77
[2017-08-21 19:36] VITALS: BP 112/76
[2017-08-22 07:57] VITALS: BP 111/72
--- NOTE | 2017-08-22 08:55 | CP SOUTH PROGRESS NOTE PSYCH ---
Psych (Inpt) Progress Note Progress Note Vital Signs Date Time Temp Pulse Resp B/P O2 08/22 0849 97.8 92 20 111/72 08/22 0757 97.8 92 11172 08/21 1936 97.6 80 112/76 No new labs Mental Status Update: Patient appears to be in very good spirits this morning, he was clean shaven and well dressed. He did not seem to be tired at all, he was more coherent, no perseveration about his budget, he was not irritable and did not behave paranoid during the interview. He did not bring up any delusions today. He was alert and oriented to time, place, and person. There were no bizarre or abnormal behaviors. Pt.'s speech was normal/not talkative, not pressured, He denied feeling hopeless about his life, denied wishing or thinking of suicide, he seemed less anxious, less depressed, denied thinking of violence or homicide, he denied hallucinations. Assessment Update: gradual improvement in his paranoia and thought disorder. He has been denying thoughts of suicide. Diagnosis: Schizoaffective Disorder, bipolar type Treatment Plan Update: DC PRN lorazepam DC morning Depakote continue other meds unchanged Treatment Plan Update: Increase sertraline to 50 mg once daily continue other meds unchanged
[2017-08-22 16:17] VITALS: BP 118/70
--- NOTE | 2017-08-22 18:47 | SOCIAL WORKER PROG NOTE PSYCH ---
Social Work Progress Note Progress Note Pt completed an application for residency at [facility]. Pt states he was feeling forgetful and distracted today because it was the anniversity of the of "[place]". Pt was engaging and hopeful about finding a place to live. Also, he understands that a discharge date has not be finalized at this time. Phone contact with Lore Donnelly from [facility] who is requesting information about what housing arrangement has been made by Shayan to date. She was informed by this clinician that no housing was secured as of today. Lore did not mention any update applications [facility] completed for housing for the pt. Pt denies SI/HI, AH/VH.
[2017-08-22 20:01] VITALS: BP 140/81
[2017-08-23 08:30] VITALS: BP 136/77
--- NOTE | 2017-08-23 08:58 | CP SOUTH PROGRESS NOTE PSYCH ---
Psych (Inpt) Progress Note Progress Note Treatment team (BOB, RN, Group and Activities Therapist, and psychiatrist) discussed Pt.'s progress, treatment plan, and aftercare plans. Vital Signs Date Time Temp Pulse Resp B/P 08/23 830 98.5 86 20 140/81 08/23 829 97.6 88 136/77 08/22 2000 98.5 86 140/81 No new labs Mental Status Update: Mr. Lindsey was less paranoid today. He asked for a letter to be his own rep-payee (not care) Mr. Lindsey did not have delusions today. he was more coherent, no perseveration about his budget, he was not irritable He was alert and oriented to time, place, and person. There were no bizarre or abnormal behaviors. Pt.'s speech was normal/not talkative, not pressured, He was in very good spirits this morning, denied feeling hopeless about his life , denied wishing or thinking of suicide, he seemed less anxious, less depressed, denied thinking of violence or homicide, he denied hallucinations. Assessment Update: Mr. Lindsey has been on the Inpatient Psychiatric Unit gradual improvement in his paranoia and thought disorder. He has been denying thoughts of suicide. Diagnosis: Schizoaffective Disorder, bipolar type Treatment Plan Update: continue same treatment plan and medications
[2017-08-23 12:18] VITALS: BP 116/70
--- NOTE | 2017-08-23 14:38 | SOCIAL WORKER PROG NOTE PSYCH ---
Social Work Progress Note Progress Note Gregorio Noe is a possibility we spoke to Lui and he will call us in the morning to inform us if there is a bed and if he has been accepted. Pt is comfortable with this, and is aware we may have to complete a CAN assessment if housing becomes an issue. Pt is doing well on the unit.
[2017-08-23 16:11] VITALS: BP 153/93
[2017-08-23 20:14] VITALS: BP 145/84
[2017-08-24 07:49] VITALS: BP 135/80
--- NOTE | 2017-08-24 08:37 | CP SOUTH PROGRESS NOTE PSYCH ---
Psych (Inpt) Progress Note Progress Note Treatment team (BOB, RN, Group and Activities Therapist, and Psychiatrist) discussed pt.'s progress, treatment plan, and aftercare plans. Vital Signs Date Time Temp Pulse Resp B/P 08/24 0852 97.3 79 20 135/80 08/24 0749 97.3 79 135/80 08/23 2013 98.6 91 145/84 No new labs Mental Status Update: The pt. reported some anxiety about the future, he continues to worries excessively and obsessively with some persevartion about "budget" and asked again for a letter to support him managing his own finances instead of [employer]. The pt. was in better spirits today, less paranoid, and did not voice delusions today, he denied hallucinations, more coherent, and not irritable. He was alert and oriented to time, place, and person. There were no bizarre or abnormal behaviors. Pt.'s speech was normal/not talkative, not pressured. He was in very good spirits this morning, denied feeling hopeless about his life, denied wishing or thinking of suicide, he seemed less anxious, less depressed, denied thinking of violence or homicide, Assessment Update: gradual improvement in paranoia and thought disorder. He has been denying thoughts of suicide. Diagnosis: Schizoaffective Disorder, Bipolar type Other Specified Anxiety Disorder (generalized anxiety symptoms, and some obsessive thoughts (vs. ? obsessive traits) Treatment Plan Update: Increase sertraline to 100 mg daily to target anxiety, obsessiveness, compulsiveness, etc. continue same treatment plan and medications
--- NOTE | 2017-08-24 12:06 | SOCIAL WORKER PROG NOTE PSYCH ---
Social Work Progress Note Progress Note Spoke to Lui from [facility], pt has been accepted to the program, and will have his sponsor pick him up to brng him there. Pt denies si/hi/ah/vh. he agrees to return to CARE and has follow up appointments set up. He states " I just want to do the next right thing". Pt prepared for discharge. Faxed Referral(s) Referred To: [facility] Transition of Care Documents sent: DC Instructions, Health Summary Faxed to: [facility] Fax #: [phone] Faxed by: Iqra Nettles Date faxed: 08/24/17 Time Faxed: [phone]
[2017-08-24 12:12] VITALS: BP 128/81
[2017-08-24] MEDS ORDERED: HYDROCHLOROTHIA50 M1 PO (14:24)
[2017-08-24] MEDS ORDERED: DIVALPROEX SOD500 M3 PO (14:24)
[2017-08-24] MEDS ORDERED: RISPERDAL2 M1 PO (14:24)
[2017-08-24] MEDS ORDERED: NICOTINE PATCH1 EAC3 TOP (14:24)
[2017-08-24] MEDS ORDERED: MONTELUKAST SOD10 M1 PO (14:24)
[2017-08-24] MEDS ORDERED: FENOFIBRATE145 M1 PO (14:24)
[2017-08-24] MEDS ORDERED: ZOLOFT100 M1 PO (14:24)
[2017-08-24] MEDS ORDERED: AMLODIPINE BESYL5 M1 PO (14:24)
[2017-08-24] MEDS ORDERED: NICORELIEF2 MG PO (14:24)
--- NOTE | 2017-08-24 14:27 | Patient Discharge Instructions ---
Psych Discharge Inst General Discharge Information Reason for Admission: Multiple paranoid delusions Psy Discharge Primary Diag+ Bipolar I vs. Schizoaffec Summary Tests/Major Procedures No significant abnormalities in lab work Studies Pending at DC: None Patient Instructions Contact Information Your Psychiatrist on [facility] was Tino Kenyon MD * If you are experiencing an emergency related to this hospitalization, please call [phone] to contact the treating psychiatrist or the psychiatrist-on- call. * To Request a copy of your medical records, please contact the Medical Records Department at [phone]. * To request results of studies pending at the time of discharge, please call [phone]. * Continue your Medications until directed to stop by your Healthcare provider. General Medication Information Please continue to take your new medications and your continued home medications , unless otherwise indicated on your discharge medication list, or unless directed by your MD or METAL BURRER to stop them. Special Instructions Diet Regular Activity Normal - Tobacco Use Treatment Offered Post DC Medications Offered: Script Given-See Med List Post DC Tobacco Treatment Plan: Refused Tobacco Tx Pgm - EtOH/Drug Use D/O Treatment Offered Post DC Medications Offered: NA-No EtOH/Drug Use D/O Post DC EtOH/SubAbuse TX Plan: NA-No EtOH/Drug Use D/O Metabolic Screening Patient on a neuroleptic(s) . Enter below results for Hemoglobin A1C, and lipid panel if obtained during the last 365 days. BMI: 30.200 Blood Pressure: 128/81 Laboratory Results From [facility] (If applicable): Lab Cholesterol 111 MG/DL 08/14/17 06 Cholesterol/HDL Ratio 3 % 08/14/17 06 HDL Cholesterol 40 mg/dL 08/14/17 06 Hemoglobin A1c 5.3 % 08/14/17 06 LDL Cholesterol, Calc 52 mg/dL L 08/14/17 06 Triglycerides 99 mg/dL 08/14/17628 Advance Directives Does the Patient have Medical Advance Directives No/Per pt req info given Does Pt have Psychiatric Advance Directives? No/Per pt req info provid Does Patient have a Designated Surrogate Decision Maker: No Information About Psychiatric Advance Directives Provided? Yes Discharge Plan Post Hospital Treatment Plan: [facility]
--- NOTE | 2017-08-24 15:12 | DISCHARGE SUMMARY REPORT-PSYCH ---
Visit Information Visit Dates/Diagnosis' Admission Date: 08/08/17 Discharge Date: 08/24/17 Reason for Admission: Multiple paranoid delusions Psy Discharge Primary Diag: Bipolar I vs. Schizoaffec Hospital Course Significant Lab Findings: Lab Cholesterol 111 MG/DL 08/14/17628 HDL Cholesterol 40 mg/dL 08/14/17628 Hemoglobin A1c 5.3 % 08/14/17628 LDL Cholesterol, Calc 52 mg/dL L 08/14/17628 Triglycerides 99 mg/dL 08/14/17628 Course Complications: The patient did not have any complications while he was on the inpatient psychiatric unit Consultations: The patient had a history and physical examination while he was on the inpatient psychiatric unit. Please refer to the patient's electronic health record for the details of the H&P Allergies: Coded Allergies: oak (Severe, ANAPHYLAXIS 07/15/17) tree and shrub pollen (Severe, DIFFICULTY BREATHING 07/15/17) oxycodone (MAKES ME WACKY 07/15/17) Uncoded Allergies: ETHANOL (UNKNOWN 07/15/17) Hospital Course/TX Response: 08/09/2017: Dr. Kenyon's Initial Impression and Plan: 54-year-old single white male who presents with multiple paranoid delusions involving government, [facility], [employer], drug dealers in the area, and people lacing his cigarettes with something. He is coherent for the most part and slightly irritable and felt that people are not listening to him and that he is frustrated and hit his wits and dying "my I might as well shoot myself in the head" Diagnosis(es): Schizoaffective disorder bipolar type Treatment Plan: Inpatient psychiatric care with safety checks every 15 minutes Change Depakote to 500 mg in the morning and 1000 mg at bedtime Increase Risperdal to 2 mg in the morning and 3 mg at bedtime On 08/11/2079 until his discharge the patient's treatment plan was basically unchanged with minor changes in the medication regimen. The Risperdal pretty much remained the same at 2 mg in the morning and 3 mg at bedtime. The Depakote 's morning dose was gradually reduced and then eliminated by the time of his discharge. And the patient after much hesitation agreed to start Zoloft or sertraline. Throughout his stay on the inpatient psychiatric unit, the patient did not have any behavioral issues. There was no agitation and there were there were no episodes requiring any kind of seclusion or restraint or intramuscular medication. The patient throughout his stay denied that he was having thoughts of suicide except on one occasion when he was very frustrated regarding his budget and financial matters and said something like "as might as well shoot myself in the head." The patient retracted that statement the next day and did not bring it up again. He reported that he said it out of anger and did not actually mean it. 08/24/2017 Mental Status Update: The pt. reported some anxiety about the future, he continues to worries excessively and obsessively with some persevartion about "budget" and asked again for a letter to support him managing his own finances instead of [employer]. The pt. was in better spirits today, less paranoid, and did not voice delusions today, he denied hallucinations, more coherent, and not irritable. He was alert and oriented to time, place, and person. There were no bizarre or abnormal behaviors. Pt.'s speech was normal/not talkative, not pressured. He was in very good spirits this morning, denied feeling hopeless about his life, denied wishing or thinking of suicide, he seemed less anxious, less depressed, denied thinking of violence or homicide, Assessment Update: gradual improvement in paranoia and thought disorder. He has been denying thoughts of suicide. Diagnosis: Schizoaffective Disorder, Bipolar type Other Specified Anxiety Disorder (generalized anxiety symptoms, and some obsessive thoughts (vs. ? obsessive traits) Treatment Plan Update: D/C to [facility] Discharge HBIPS - Tobacco Use Treatment Offered Post DC Medications Offered: Script Given-See Med List Post DC Tobacco Treatment Plan: Refused Tobacco Tx Pgm - EtOH/Drug Use D/O Treatment Offered Post DC Medications Offered: NA-No EtOH/Drug Use D/O Post DC EtOH/SubAbuse TX Plan: NA-No EtOH/Drug Use D/O Metabolic Screening - Screen if on a Neuroleptic Medication - Metabolic screening should include: - Blood Pressure, BMI, Glucose or Hgb A1c, & a - Lipid profile from within the past 365 days. Metabolic Screening Patient on a neuroleptic(s) . Enter below results for Hemoglobin A1C, and lipid panel if obtained during the last 365 days. BMI: 30.200 Blood Pressure: 128/81 Laboratory Results From [facility] E[facility] (If applicable): Lab Cholesterol 111 MG/DL 08/14/17 06 HDL Cholesterol 40 mg/dL 08/14/17 06 Hemoglobin A1c 5.3 % 08/14/17 06 LDL Cholesterol, Calc 52 mg/dL L 08/14/17 06 Triglycerides 99 mg/dL 08/14/17 06 Discharge Instructions General Discharge Information Multiple Neuroleptics: Not Applicable Discharge Diet Regular Discharge Activity Normal DC Disposition: [facility] Referrals Ordered Referrals Provider Referral 09/13/17 For Providers: Rick] For Groups: [[facility]] Pt has an individual appt with Adrianne on 09/13/17 at 1:30pm at [facility] Provider Referral 09/22/17 For Providers: [Yasmine Perla APRN] For Groups: [[facility]] Pt has a meeting with Yasmine Perla APRN on 09/22/17 at 12:30pm at [facility] Provider Referral 08/24/17 For Groups: [[facility]] Pt will be residing at [facility] in [place] and participating in recovery related meetings Prescriptions Stop taking the following medications: Risperidone (Risperidone) 2 MG TABLET ORAL TWICE DAILY Qty = 30 Risperidone (Risperidone) 3 MG TABLET Qty = 30 Continue taking these medications: Nicotine (Nicotine Patch) 21 MG/24 HOUR PATCH.TD24 21 Milligram On the skin DAILY Qty = 15 Comments: Last Taken:NOT USED IN THE HOSPITAL Time: This prescription has been renewed Nicotine (Nicorelief) 2 MG GUM 2 Milligram ORAL EVERY 2 HOURS NEEDED as needed for SMOKING CRAVING Qty = 90 Comments: Last Taken:NOT USED IN THE HOSPITAL Time: This prescription has been renewed Fenofibrate Nanocrystallized (Fenofibrate) 145 MG TABLET 1 Tablet ORAL DAILY Qty = 90 Comments: Last Taken:08/24/17 Time:9AM This prescription has been renewed Amlodipine Besylate (Amlodipine Besylate) 5 MG TABLET 1 Tablet ORAL DAILY Qty = 30 Comments: Last Taken:08/24/17 Time:9AM This prescription has been renewed Divalproex Sodium (Divalproex Sodium ER) 500 MG TAB.ER.24H 2 Tablet ORAL Every night Qty = 60 Comments: Last Taken:08/23/17 Time:10PM This prescription has been renewed Hydrochlorothiazide (Hydrochlorothiazide) 50 MG TABLET 1 Tablet ORAL DAILY Qty = 30 Comments: Last Taken:08/24/17 Time:9AM This prescription has been renewed Montelukast Sodium (Montelukast Sodium) 10 MG TABLET 1 Tablet ORAL DAILY Qty = 30 Comments: Last Taken:08/23/17 Time:10PM This prescription has been renewed Start taking the following new medications: Sertraline HCl (Zoloft) 100 MG TABLET 100 Milligram ORAL DAILY Qty = 30 No Refills Comments: Last Taken:TO START THIS DOSE TOMORROW 08/25/17 Time:RECEIVED 50MG ON 08/24/17 AT 9AM Risperidone (Risperdal) 2 MG TABLET 1 Tablet ORAL SEE INSTRUCTIONS Qty = 30 No Refills Instructions: 1 tab QAM and 1.5 TABS (3 mg) QHS Comments: Last Taken:08/24/17 Time:9AM Studies Pending at Discharge None Copies To: [facility]
== END 2017-08-24 17:14 | DRG 885 ==
LOC: ERH 01:26 → CP SOUTH 15:42 → ERHI 15:42 → ENTRNSPT 16:24 → CP SOUTH 16:34 → CMPTRNSPT 16:36 → CP SOUTH 16:43
PROVIDERS: Pediatrics; Psychiatry & Neurology Psychiatry
DX: F31.9 Bipolar disorder, unspecified (principal)
CPT/HCPCS: 36415; 80307; G0480

== ENCOUNTER 2017-08-28 17:53 | Inpatient (IN) | payer OTHER, MEDICARE ==
[~2017-08-28] VITALS: Ht 165.1 cm; Wt 72.6 kg
[~2017-08-28 17:53] MED LIST changes: +RISPERDAL2 M1 PO; +RISPERIDONE3 M1; +ZOLOFT100 M1 PO
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
[2017-08-28 18:36] LABS: ABSOLUTE BASOPHIL COUNT 0 /CUMM (0.0-0.2); ABSOLUTE EOSINOPHIL COUNT 0 /CUMM (0.0-0.7); ABSOLUTE GRANULOCYTE CT 9.6 /CUMM (1.4-6.5); ABSOLUTE LYMPH COUNT 1.3 /CUMM (1.2-3.4); ABSOLUTE MONOCYTE COUNT 1.3 /CUMM (0.10-0.60); BASOPHIL % 0.2 % (0.0-2.0); EOSINOPHIL % 0.3 % (0-5); GRANULOCYTE % 78.4 % (42.2-75.2); HEMATOCRIT 42.7 % (42-52); MEAN CORPUSCULAR HGB 29.5 PG (27.0-31.0); MEAN CORPUSCULAR HGB CONC 34.8 G/DL (33.0-37.0); MEAN PLATELET VOLUME 8.6 FL (7.4-10.4); PLATELET COUNT 404 /CUMM (130-400); RBC DISTRIBUTION WIDTH 13.8 % (11.5-14.5); RED BLOOD CELL CT 5.03 /CUMM (4.70-6.10); WHITE BLOOD CELL COUNT 12.2 /CUMM (4.8-10.8)
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
[2017-08-30 07:37] VITALS: BP 121/73
[2017-08-30 11:37] VITALS: BP 124/76
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
--- NOTE | 2017-08-30 12:34 | PN- Att Addend ---
Attending Addendum Attending Brief Note Patient seen and examined, he was found to be in 4 point restraints. There was order #7 called on him this morning and security came down. Apparently patient was very agitated. He also is paranoid. He is admitted to [facility] with paranoid symptoms. He was recently discharged from [facility] less than a week ago. Patient was given Ativan during that agitation. And he was put in four- point restraints. Vital Signs Date Time Temp Pulse Resp B/P B/P Pulse O2 O2 Flow FiO2 Mean Ox Delivery Rate 08/30 1137 98.7 78 124/76 08/30 0743 98.2 92 18 121/73 08/30 0737 98.2 92 121/73 08/29 2207 97.8 89 18 135/87 96 Room Air 08/29 2000 97 Room Air 08/29 2000 98.0 92 20 136/85 98 Room Air 08/29 1842 98.4 90 20 140/84 97 08/29 1538 98.0 89 20 127/74 96 08/29 1336 97.8 99 18 156/88 96 Room Air on exam; sleepy due to Ativan but arousable. cv; s1,s2, rrr resp: clear abd; soft, nt, bs+ ext; no edema Labs from 08/28 reviewed. A/P; 52-year-old male with past medical history significant for hypertension, hyperlipidemia, alcohol dependence, chronic back pain, bipolar disorder admitted to [facility] with paranoid symptoms. Blood pressure is stable on current regimen. Patient has been resumed back on his fenofibrate. I reviewed his labs from August 28 and he was found to be hypokalemic. I will repeat his BEP. If he is still hypokalemic then I will replete his potassium. Patient currently in 4 point restraints. I will leave the psych management after the psychiatrist.
[2017-08-30 16:09] VITALS: BP 147/77
--- NOTE | 2017-08-30 17:00 | SOCIAL WORKER PROG NOTE PSYCH ---
Social Work Progress Note Progress Note SW attempted to meet with pt today to complete psycho-social but pt was unable to participate due to IM sedation and restraints for physical aggressive episode. Will attempt again tomorrow.
--- NOTE | 2017-08-30 18:01 | SOCIAL WORKER PROG NOTE PSYCH ---
Social Work Progress Note Progress Note This job specification writer attempted to meet with the patient earlier in the day. He had been given an IM and was placed in restraints. Patient was sleeping. This job specification writer met with the patient later in the day. He appeared disorganized and was unable to respond clearly to inquiries. Patient did report feeling medicated. He presented a note that he had written which was filed in his chart. It appeared that he wanted to speak with the doctor about his medications and was encouraged to do so. Patient was agreeable to a family meeting, however, unable to identify whom he would like to invite. He agreed to revisit this tomorrow.
[2017-08-30 20:36] VITALS: BP 127/72
[2017-08-31 07:37] VITALS: BP 114/74
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
[2017-08-31 12:32] VITALS: BP 120/70
[2017-08-31 16:10] VITALS: BP 118/67
--- NOTE | 2017-08-31 17:13 | SOCIAL WORKER SOCIAL HX PSYCH ---
Social History Basic Assessment Insurance Authorization: Insurance #1: Insurance name: MED[employer] Phone number: Policy number: [id number] Group number: Authorization number: Curr Source of Income/Entitlements: [facility] Primary Care Physician: Patient's PCP: Dayton Hurley APRN PCP's Primary Language? Lithuanian Language(s) Spoken At Home: Lithuanian Living Situation Other Living Arrangement: homeless Feel Safe Where You Are Living Yes Feel Safe in Relationships? Yes Allergies - Coded Allergies: oak (Severe, ANAPHYLAXIS 07/15/17) tree and shrub pollen (Severe, DIFFICULTY BREATHING 07/15/17) oxycodone (MAKES ME WACKY 07/15/17) Uncoded Allergies: ETHANOL (UNKNOWN 07/15/17) Current Medications - Scheduled Medications Amlodipine Besylate 5 MG TABLET 1 TAB PO DAILY HEART #30 TAB Prescribed by Tino Kenyon MD on 08/24/17 Last Taken: 08/29/17 0859 Divalproex Sodium (Divalproex Sodium ER) 500 MG TAB.ER.24H 2 TAB PO QPM MOOD STABILITY #60 TAB Prescribed by Tino Kenyon MD on 08/24/17 Last Taken: 08/29/17 2112 Fenofibrate Nanocrystallized (Fenofibrate) 145 MG TABLET 1 TAB PO DAILY CHOLESTEROL #90 TAB Prescribed by Tino Kenyon MD on 08/24/17 Last Taken: 08/29/17 0859 Hydrochlorothiazide 50 MG TABLET 1 TAB PO DAILY BP #30 TAB Prescribed by Tino Kenyon MD on 08/24/17 Last Taken: 08/29/17 0859 Montelukast Sodium 10 MG TABLET 1 TAB PO DAILY ALLERGIES #30 TAB Prescribed by Tino Kenyon MD on 08/24/17 Last Taken: 08/29/17 0859 Nicotine (Nicotine Patch) 21 MG/24 HOUR PATCH.TD24 21 MG TOP DAILY smoking cessation #15 PATCH Prescribed by Tino Kenyon MD on 08/24/17 Last Taken: Unknown Dose at an unknown date and time Risperidone (Risperdal) 2 MG TABLET 1 TAB PO SEE ADMIN CRITERIA paranoia #30 TAB Prescribed by Tino Kenyon MD on 08/24/17 Last Taken: 08/28/17 Sertraline HCl (Zoloft) 100 MG TABLET 100 MG PO DAILY anxiety/OCD #30 TAB Prescribed by Tino Kenyon MD on 08/24/17 Last Taken: 08/29/17 0859 Scheduled PRN Medications Nicotine (Nicorelief) 2 MG GUM 2 MG PO Q2P PRN SMOKING CRAVING #90 GUM Prescribed by Tino Kenyon MD on 08/24/17 Last Taken: Unknown Dose at an unknown date and time Discontinued Medications Risperidone 3 MG TABLET 2 2MG HTN #30 (Reported) Discontinued reason: Changed Dose Risperidone 2 MG TABLET 1 TAB PO BID MENTAL HEALTH #30 TAB Discontinued reason: Changed Dose Consequences of Psych Med Use: pt suspicious he is being medicated properly Past History Past Medical History Neurological: NONE EENT: allergies Cardiovascular: hypertension, hyperlipidemia Respiratory: CIGARETTE SMOKER Gastrointestinal: NONE Hepatic: NONE Renal: NONE Musculoskeletal: chronic back pain, osteoarthritis Psychiatric: alcohol dependence, bipolar disease Endocrine: NONE Blood Disorders: NONE Cancer(s): NONE CRAYON GRADER/Reproductive: NONE Past Surgical History Surgical History: back surgery, knee surgery /Family History Place/Country of Origin: [facility] Childhood Family Constellation: Child reports he was adopted and lived with his mother, father and adopted siblings. Primary Childhood Caretakers: father, mother, step-parent (adoptive) Family Life During Childhood: "great, I was blessed with good parents" DCF Involvement? No Relationship w/Mother: "good" Relationship w/Father: "we didn't talk much, but we loved eachother". Any Sibling(s)? Yes Sibling's Gender(s)/Age(s): male Sibling 1:, male Sibling 2:, female Sibling 3: Relationship w/Sibling(s): "good" Relationship w/Friends: "we go to AA meetings together" Family Psych/Sub Abuse/Add Hx: unknown Abuse/Trauma History Trauma History/Current Trauma: Denies Abuse/Trauma Treatment: n/a Legal History Legal Guardian/Address/Phone: n/a Have you ever been arrested Yes Hx of Juvenile Legal Charges? No Hx of Adult Legal Charges? Yes If Yes: misdemeanor, felony List/Date Most Recent Lgl Chgs: "DUI, and some other stuff" Chgs/Dts/Incarcerations/Sentnc pt reports he was incarcerated 2 years ago and about 20 years ago, before he got sober. Civil Proceedings: none reported Domestic Relations Court: none reported Child Protective Serv Involvmnt none reported. Psychosocial History Primary Support System: ("), mother, AA Strengths/Capabilities: patient has maintained sobriety for many years, and is active in AA Physical Limitations (Interventions): none noted Last Physical: 12 months ago History of Blackouts? No ADL Limitations: none reported Dexter/Social/Peer Relations Pt reports his friends are the people to attneds AA meetings with. They enjoy going to meetings together and hanging out after the meetings. Pt also reports he likes fishing and hunting, although reports he cannot huggins anymore because "the government doesnt want me to have a gun". Meaningful Activities: going to AA meetings, hunting, fishing Childhood Yazdanism: no voodoo stated, pt reports he is "very spiritual" but does not identify with a specific voodoo because "all religions are always at war with eachother" Current Scientologist Affiliation: no voodoo stated, pt reports he is spiritual Is Spirituality Important to You? " why does it matter if it is or isnt ?" Patient's Ethnicity: (Korean), [place] Cultural/Ethnic Issues: none reported Are There Developmental Issues? Yes If Yes, Explain: learning troubles Milestones Achieved: fine motor, gross motor Psychiatric Treatment History Psych Treatment Inpatient Treatment Yes Outpatient Treatment Yes Location of Treatment [facility] Reason for Treatment Bipolar, Paranoia Dates of Treatment Last [facility] D/C - 08/24/17, currently in tx at [facility] [place] Response to Treatment Pt. has past hx of non-compliance Current Header Set Up Operator: pt was discharged from [facility] on 08/24 and readmitted 08/29 Treatment of Prior Episodes: Bipolar Disorder Diagnosis: Bipolar disorder History of Alcohol Dependence in sustained remission. Psychodynamic Issues: none reported Risk Factors: high anxiety/distress, SA/MH hospitalized, poor impulse control, male Substance Use/Abuse History Drug Use/Abuse:Min 12 mo hx Substance Used/Abused Alcohol First Use unk Last Used 21 years ago How much used/taken unk How often unk For how long unk Route of use oral Have You Ever Attended AA? Yes Symptoms of Use: recovery from alcohol 20+ yrs Substance Abuse Treatment Substance Abuse Treatment Inpatient Treatment Yes Outpatient Treatment Yes Location of Treatment [facility] Reason for Treatment Alcohol Abuse Dates of Treatment Response to Treatment Pt. has remained sober 20+ years Sexual History Sexual Concerns: Pt reports he is not in a relationship and does not wish to ever be. Education History Highest Level of Education: high school/GED Highest Grade Completed: 12th Vocational Year Completed: n/a Number of College Years: 0 College Degree/Major: n/a Other Degree(s): n/a Preferred Learning Style: visual, auditory, experiential HX of Learning Difficulties: Learning Disabilities Barriers to Learning: pt reports trouble in school with reading and learning. He reports he was unable to focus in school and did not receive help from teachers. Special Communication Needs: None reported Employment History Not in Labor Force: on Social Security Disability No. of Jobs in Last 5 Years: 0 Attendance: unknown Performance: Average History Have You Been in The ? No If Yes, Explain: n/a Type of Discharge: n/a Date of Discharge: n/a Current Mental Status Mental Status Orientation: Confused Affect: WNL Speech: Perseveration Neuro-vegetative: Sleep Disturbance Appearance Appearance- Dress/Hygiene: WNL Behaviors Thought Process: unable to assess Thought Content: unable to assess Insight: Poor SI/HI Risk Assessment Past Suicidal Ideation/Attempts Yes Past Homicidal Ideation/Att: No Current Homicidal Ideation/Attempts No Degree of Intent: unable to assess Danger To: unable to assess Gravely Disabled: Inability, paranoid Lethality Rating: unable to assess - Conclusion and Recommendations for treatment - and discharge planning Summary: Pt presented as anxious. Pt focused on aggressive/agitated episode yesterday that resulted in need for restraint and IM sedation. Pt has poor insight into what triggered him. Pt reports feeling calm and more relaxed today but is concerned about where he will discharged to and worried that his pills keep getting changed.
--- NOTE | 2017-08-31 18:29 | SOCIAL WORKER PROG NOTE PSYCH ---
Social Work Progress Note Progress Note This chart writer met with patient. He reported his mood as "pretty calm" and then stated, "they want to tweak me on the unit." Patient denied SI/HI, however stated that he felt "heat on my forehead." When asked about VH he responded, "sometimes I see people who have keys in their car door. I look again and their gone." Patient continued to comment on his experience when he stayed at [facility], stating that it was not a good experience. Patient explained that he felt that other residents were not focused on sobriety and questioned substance use. Patient is agreeable to considering other housing options.
[2017-08-31 19:55] VITALS: BP 120/70
[2017-09-01 07:47] VITALS: BP 128/72
--- NOTE | 2017-09-01 12:05 | CP SOUTH PROGRESS NOTE PSYCH ---
Psych (Inpt) Progress Note Progress Note Vital Signs Date Time Temp Pulse B/P 09/01 1238 92 136/87 09/01 0853 70 128/72 09/01 0747 96.7 70 128/72 Mental Status: Pt. is paranoid, guarded, on-off psychomotor agitation, occasionally belligerent and loud threatening, talkative with mild pressure, impaired attention and concentration, some perseveration, denied thoughts of suicide during the interview, denied thoughts of violence or homicide during the interview, denied hallucinations but seemed to be internally preoccupied probably responding to internal stimuli, paranoid delusions, thoughts disordered, poor insight, Poor judgment, Alert and oriented to time, place, and person. Assessment: 52-year-old Single white male who comes back to the inpatient psychiatric unit shortly after discharge from here. He seems to have had a quick decompensation and into an acute psychotic state. The patient remains thoughts disordred, delusional and paranoid with episodes of agitation Diagnoses: Schizoaffective disorder, bipolar type, current episode mixed with psychotic symptoms Treatment Plan Update: Increase Zyprexa to 15 mg at bedtime
[2017-09-01 12:38] VITALS: BP 136/87
[2017-09-01 15:51] VITALS: BP 135/79
--- NOTE | 2017-09-01 18:32 | SOCIAL WORKER PROG NOTE PSYCH ---
Social Work Progress Note Progress Note This software writer met with patient. He reported his mood as "good" and described himself as feeling "stabilized and pretty clear." He denied experiencing any agitation today. He stated that he would like to speak with the psychiatrist about changing his medications as he feels very tired. This software writer suggested that he write down his questions, to which he agreed and accepted a journal to keep these questions. He thanked this software writer for his new journal as he stated that his old journal was "scattered across the ocean." Patient appeared to become very distracted by writing his questions and did not want to continue the conversation at this time.
[2017-09-01 19:46] VITALS: BP 122/76
[2017-09-02 08:15] VITALS: BP 116/66
--- NOTE | 2017-09-02 08:23 | CP SOUTH PROGRESS NOTE PSYCH ---
Psych (Inpt) Progress Note Progress Note Treatment team (BOB, RN, Group and Activities Therapist, and psychiatrist) discussed the pt.'s progress, treatment plan, and aftercare plans. Vital Signs: Date Time Temp Pulse B/P B/P Pulse O2 FiO2 09/02 0815 97.0 81 116/66 09/01 1945 98.9 87 122/76 Mental Status: The treatment team this morning, the patient was reported to have been somewhat confused and disorganized in the past 24 hours This morning, the pt. was still paranoid, still guarded, but he was not agitated He was not belligerent or loud or threatening, His speech seems to have slowed down and there was no pressure in his speech today impaired attention and concentration, some perseveration, denied thoughts of suicide, denied thoughts of violence or homicide denied hallucinations but seemed to be internally preoccupied probably responding to internal stimuli, some paranoid delusions, thought disordered, poor insight, poor judgment, Alert and oriented to place and person. Assessment: Jorge Lindsey is a 52-year-old Single White Male who was admitted to the inpatient psychiatric unit shortly after discharge from here. He seems to have had a quick decompensation and into an acute psychotic state. The patient remains thoughts disordred, delusional and paranoid No agitation so far today, which is different than in the past 2 days Diagnoses: Schizoaffective disorder, bipolar type, current episode mixed with psychotic symptoms Treatment Plan Update: Add potassium chloride 20 mEq daily Reduce hydrochlorothiazide to 25 mg daily Continue with divalproex 1000 mg at bedtime and Discontinue Risperdal altogether Continue Zyprexa @15 mg at bedtime
[2017-09-02 12:09] VITALS: BP 126/67
[2017-09-02 15:51] VITALS: BP 140/79
--- NOTE | 2017-09-02 16:36 | SOCIAL WORKER PROG NOTE PSYCH ---
See Addendum Mauricio Campuzano 09/02/17 1623: Social Work Progress Note Progress Note I Mauricio Campuzano met with Jorge in his room and lounge. We started meeting in the room with the sitter right there he was worried that another patient walking by his room so request to meet somewhere else I told him we could move to the lounge. He reports "feeling good and confident". He expressed not feeling anger, or sadness. He attended one group on the unit today and had small paper book in his shirt pocket. He was protective of the inside of the mini book. He was easily distracted by his surrounding in the lounge. When asked what his goal was he said " I want to be a manager security or customer leader". I inquired about this thoughts about therapy and he responded " I'll need to take therapy courses to be a manager security. I asked about his social support system and he said it is fine but he does not want family meeting this time. Jorge did not report any side effect from the medications.
[2017-09-02 19:44] VITALS: BP 137/86
[2017-09-03 08:08] VITALS: BP 130/74
--- NOTE | 2017-09-03 11:04 | CP SOUTH PROGRESS NOTE PSYCH ---
Psych (Inpt) Progress Note Progress Note Pt notes that he is "pretty good" today despite some diarrhea. He is trying to "flush the system" but not clear why. Notes no SI or HI. Current Medications Sig/Mary Start time Last Medication Dose Route Stop Time Status Admin Acetaminophen 650 MG Q6P PRN 08/30 0635 AC PO Amlodipine Besylate 5 MG DAILY 08/29 09 AC 09/03 PO 0750 Benztropine Mesylate 1 MG Q6P PRN 08/30 1100 AC 09/03 PO 0026 Benztropine Mesylate 1 MG Q6P PRN 08/30 1100 AC 08/30 IM 1100 Divalproex Sodium 1,000 MG QPM 09/01 2100 AC 09/02 PO 2100 Fenofibrate 145 MG DAILY 08/29 09 AC 09/03 PO 0750 Haloperidol 5 MG Q6P PRN 08/30 1100 AC 09/03 PO 0026 Haloperidol 5 MG Q6P PRN 08/30 1100 AC IM Hydrochlorothiazide 25 MG DAILY 09/02 0900 AC 09/03 PO 0749 Lorazepam 1 MG Q4 HRS NEEDED PRN 09/01 1400 AC PO Lorazepam 2 MG Q6P PRN 08/30 1100 AC 09/03 PO 0026 Lorazepam 2 MG Q6P PRN 08/29 2130 AC IM Olanzapine 15 MG AT BEDTIME 09/01 2099 AC 09/02 PO 2100 Potassium Chloride 20 MEQ DAILY 09/02 09 AC 09/03 PO 0749 Laboratory Tests 09/03 09/02 0611 0900 Chemistry Sodium (137 - 145 mmol/L) 144 Cancelled Potassium (3.5 - 5.1 mmol/L) 4.4 Cancelled Chloride (98 - 107 mmol/L) 109 H Cancelled Carbon Dioxide (22 - 30 mmol/L) 24 Cancelled Anion Gap (5 - 16) 12 Cancelled Vital Signs Date Time Temp Pulse Resp B/P B/P Pulse O2 O2 Flow FiO2 Mean Ox Delivery Rate 09/03 0808 96.7 83 130/74 09/03 0750 82 137/86 09/02 1944 98.8 82 137/86 09/02 1551 71 140/79 09/02 1209 79 126/67 MSE Appearance: as stated age Speech : nl rate, rhythm, volume and prosody Behavior: cooperative Motor: no psychomotor agitation or retardation Mood : pretty good Affect : flat, non-labile, irritable, appropriate, constricted Thought process: linear and goal directed though bizzare Thought content : no delusions or paranoia Perceptions: denied AVHs, denied SI or HI Insight: poor Judgment: poor A/P: Pt with Bipolar disorder with psychosis slightly improved though remains quite symptomatic. Continue current medication regimen Encourage integration into the milieu
[2017-09-03 11:54] VITALS: BP 128/76
[2017-09-03 15:27] VITALS: BP 120/75
[2017-09-03 19:53] VITALS: BP 127/76
[2017-09-04 07:37] VITALS: BP 124/76
--- NOTE | 2017-09-04 11:57 | CP SOUTH PROGRESS NOTE PSYCH ---
Psych (Inpt) Progress Note Progress Note Pt notes that "very depressed." he notes that slept not good. Feels that alcohol is the only thing that helps. Notes that alcohol is an "antidepressant." Psychoeducation done. He then suddenly perked up and said, "I want to be free and smiling again." Denies SI or HI. Current Medications Sig/Mary Start time Last Medication Dose Route Stop Time Status Admin Acetaminophen 650 MG Q6P PRN 08/30 0635 AC PO Amlodipine Besylate 5 MG DAILY 08/29 09 AC 09/04 PO 0738 Benztropine Mesylate 1 MG .STK-MED ONE 09/04 0157 DC PO 09/04 0158 Benztropine Mesylate 1 MG Q6P PRN 08/30 1100 AC 09/04 PO 0157 Benztropine Mesylate 1 MG Q6P PRN 08/30 1100 AC 08/30 IM 1100 Divalproex Sodium 1,000 MG QPM 09/01 2100 AC 09/03 PO 2217 Fenofibrate 145 MG DAILY 08/29 09 AC 09/04 PO 0738 Haloperidol 5 MG .STK-MED ONE 09/04 0156 DC PO 09/04 0157 Haloperidol 5 MG Q6P PRN 08/30 1100 AC 09/04 PO 0158 Haloperidol 5 MG Q6P PRN 08/30 1100 AC IM Hydrochlorothiazide 25 MG DAILY 09/02 09 AC 09/04 PO 0738 Lorazepam 1 MG Q4 HRS NEEDED PRN 09/01 1400 AC 09/04 PO 0158 Lorazepam 2 MG Q6P PRN 08/30 1100 AC 09/03 PO 0026 Lorazepam 2 MG Q6P PRN 08/29 2130 AC IM Olanzapine 15 MG AT BEDTIME 09/01 2100 AC 09/03 PO 2217 Potassium Chloride 20 MEQ DAILY 09/02 09 AC 09/04 PO 0738 Laboratory Tests 09/03 09/02 0611 0900 Chemistry Sodium (137 - 145 mmol/L) 144 Cancelled Potassium (3.5 - 5.1 mmol/L) 4.4 Cancelled Chloride (98 - 107 mmol/L) 109 H Cancelled Carbon Dioxide (22 - 30 mmol/L) 24 Cancelled Anion Gap (5 - 16) 12 Cancelled Vital Signs Date Time Temp Pulse Resp B/P B/P Pulse O2 O2 Flow FiO2 Mean Ox Delivery Rate 09/04 0638 76 124/76 09/04 0737 96.9 76 124/76 09/03 1953 98.7 80 127/76 09/03 1527 78 120/75 MSE Appearance: as stated age Speech : nl rate, rhythm, volume and prosody Behavior: cooperative Motor: no psychomotor agitation or retardation Mood : bad... but OK Affect : flat, non-labile, irritable, appropriate, constricted Thought process: linear and goal directed though bizzare Thought content : no delusions or paranoia Perceptions: denied AVHs, denied SI or HI Insight: poor Judgment: poor A/P: Pt with Bipolar disorder with psychosis slightly improved though remains quite symptomatic. Continue current medication regimen Encourage integration into the milieu
[2017-09-04 12:12] VITALS: BP 134/78
[2017-09-04 15:39] VITALS: BP 123/79
[2017-09-04 19:54] VITALS: BP 137/80
[2017-09-05 08:25] VITALS: BP 109/68
--- NOTE | 2017-09-05 08:29 | CP SOUTH PROGRESS NOTE PSYCH ---
Psych (Inpt) Progress Note Progress Note I reviewed the notes of Dr. Fontana from the weekend of September 03 and 2017. BOB, RN, Group and Activities Therapist, and Psychiatrist discussed pt.'s progress, treatment plan, and aftercare plans. Mental Status: still paranoid & guarded, but he was not agitated He was not belligerent or loud or threatening, speech seems to have slowed down and there was no pressure in his speech thoughts disordered and impaired attention and concentration, some perseveration , denied thoughts of suicide, denied thoughts of violence or homicide, denied hallucinations but seemed to be internally preoccupied probably responding to internal stimuli, poor insight, poor judgment, Alert and oriented to place and person. Assessment: Jorge Lindsey is a 52-year-old Single White Male who was re-admitted to the inpatient psychiatric unit 3 days after discharge from the same unit. He seems to have had a quick decompensation and into an acute psychotic state. The patient remains thoughts disordred, delusional and paranoid No agitation x 3days Diagnoses: Schizoaffective disorder, bipolar type, current episode mixed with psychotic symptoms Treatment Plan Update: Reduce PRN Ativan to 0.5 mg and reduce as needed doses of Haldol to just 2 mg ( this is because the patient looked a little bit sedated today) Continue with divalproex 1000 mg at bedtime and Continue Zyprexa @15 mg at bedtime
[2017-09-05 11:59] VITALS: BP 115/63
--- NOTE | 2017-09-05 14:25 | SOCIAL WORKER PROG NOTE PSYCH ---
Social Work Progress Note Progress Note This script writer met with patient. He was lying in bed covered in a blanket. He described his mood as "pretty good." He denied SI/HI/hallucinations. Patient appeared more alert and engaged in this conversations than previous conversations. He asked if he could call his sponsor, which this script writer encouraged him to do. Patient stated that he had also not been in contact with Lore Donnelly, Formerly [facility] field nurse case manager, since his admission and would like to contact her. He identified a goal to call his sister to ask her to bring clothes as he states that he only has blue scrubs to wear.
[2017-09-05 15:54] VITALS: BP 125/63
[2017-09-05 20:06] VITALS: BP 137/82
[2017-09-06 08:02] VITALS: BP 136/84
--- NOTE | 2017-09-06 08:22 | CP SOUTH PROGRESS NOTE PSYCH ---
Psych (Inpt) Progress Note Progress Note BOB RN, Group and Activities Therapist, and Psychiatrist discussed pt.'s progress, treatment plan, and aftercare plans. Vital Signs Date Time Temp Pulse Resp B/P 09/06 0842 96.8 79 18 136/84 09/06 0802 96.8 79 136/84 Mental Status: Pt. continues to be thought disordered (with thought disorganization and behavioral disorganization), he is still paranoid & guarded, but he was not agitated, impaired attention and concentration, some perseveration, denied thoughts of suicide, denied thoughts of violence or homicide, Although he denied hallucinations, he seemed to be internally preoccupied ( probably responding to internal stimuli). Alert and oriented to place and person. Assessment: 52-year-old Single White Male re-admitted to the inpatient psychiatric unit 3 days after discharge-seems to have had a quick decompensation and into an acute psychotic state. The patient remains thoughts disordred, delusional and paranoid. No agitation x 3days Diagnoses: Schizoaffective disorder, bipolar type, current episode mixed with psychotic symptoms Treatment Plan Update: Recheck Depakote Blood levels Continue PRN Ativan to 0.5 mg and reduce as needed doses of Haldol to just 2 mg Continue with divalproex 1000 mg at bedtime and Continue Zyprexa @15 mg at bedtime
--- NOTE | 2017-09-06 15:40 | SOCIAL WORKER PROG NOTE PSYCH ---
Social Work Progress Note Progress Note This proposal lead writer met with patient. He was spontaneous in this conversation, however, presented as depressed and even tearful at times. Patient stated "My back is against the wall and my liver is breaking down." He was unable to explain this comment further. Patient became tearful upon talking about his sister and how supportive she has been. Patient was informed that this proposal lead writer spoke with Linda from [facility] this morning, who inquired about referring the patient to an [facility] bed. Patient was agreeable to this referral and possibly [facility]. He was also interested in learning more about CCT and would like to review the ABUNDIO for CCT. Patient denied SI/HI/AH/VH.
--- NOTE | 2017-09-06 17:21 | SOCIAL WORKER PROG NOTE PSYCH ---
Social Work Progress Note Progress Note This marketing underwriter attempted to meet with patient regarding ABUNDIO's (CCT, ICC and his sister). Patient became very agitated stating that he did not have any choices and expressed concerns that his coffee (that was sitting on the table in the kitchen) would be taken away. Patient was able to remain in behavioral control and agreed to discuss later. This marketing underwriter met with patient at 5:15pm and revisited the above. He stated that he would discuss CCT and ICC with this marketing underwriter tomorrow. Patient was informed that his sister left a for this marketing underwriter. He stated that he did not want this marketing underwriter to contact his sister/return her call at this time.
[2017-09-06 20:22] VITALS: BP 152/73
[2017-09-07 07:47] VITALS: BP 122/68
--- NOTE | 2017-09-07 09:00 | CP SOUTH PROGRESS NOTE PSYCH ---
Psych (Inpt) Progress Note Progress Note EMAIL MARKETING INTERN, RN, OTR/L, Group and Activities Therapist, and Psychiatrist discussed pt.' s progress, treatment plan, and aftercare plans. Vital Signs: Laboratory Tests 09/07 Total Bilirubin (0.2 - 1.3 mg/dL) 0.1 L Direct Bilirubin (< 0.4 mg/dL) 0.1 AST (17 - 59 U/L) 31 ALT (21 - 72 U/L) 37 Alkaline Phosphatase (< 127 U/L) 43 Total Protein (6.3 - 8.2 g/dL) 6.8 Albumin (3.5 - 5.0 g/dL) 4.1 Valproic Acid (50 - 120 ug/mL) 43.8 L Vital Signs Date Time Temp Pulse B/P 09/07 0747 97.1 73 122/68 Mental Status: Pt. continues with thought disorganization and behavioral disorganization, paranoid & guarded, he was not agitated, impaired attention and concentration, some perseveration, denied thoughts of suicide, denied thoughts of violence or homicide, denied hallucinations, he seemed to be internally preoccupied ( probably responding to internal stimuli). Alert and oriented to place and person. Assessment Update: Jorge Lindsey is a 52-year-old Single White Male re-admitted to the inpatient psychiatric unit 3 days after discharge-seems to have had a quick decompensation and into an acute psychotic state. The patient remains thoughts disordred, delusional and paranoid. No agitation x 3days Diagnoses: Schizoaffective disorder, bipolar type, current episode mixed with psychotic symptoms Treatment Plan Update: Depakote Blood levels 43.8 microgram per mL, therefore Increase to 500 mg Depakote-ER in AM and 1000 mg at bedtime Increase PRN Ativan to 1 mg as patient remains acutely psychotic Increase Zyprexa to 20 mg at bedtime
--- NOTE | 2017-09-07 17:17 | SOCIAL WORKER PROG NOTE PSYCH ---
Social Work Progress Note Progress Note This script writer met with patient around 9am this morning. Upon this script writer approaching him, he stated, "you always come in at the worst times," however, requested to meet anyway. Patient appeared paranoid, freqeuntly checking the door and indicating that people were listening in. He requested that this script writer speak lower (to a whisper) in order to avoid others hearing the conversation. Patient refused to sign an ICC or CCT ABUNDIO. Regarding his sister, he refused to complete the ABUNDIO and stated that he did not want this script writer to contact her. Patient expressed some interest in [facility] and was curious about where he is on the wait list for [facility]. This script writer spoke with Linda at [facility]. She was informed that the patient refused to sign the ICC and CCT ABUNDIO. This script writer left a vm for Linda ) at 5:15pm informing her of the patient's interest in [facility] or [facility] as patient stated that Lore Donnelly had been assisting him with [facility].
[2017-09-07 19:46] VITALS: BP 136/76
[2017-09-08 07:40] VITALS: BP 124/78
--- NOTE | 2017-09-08 08:51 | CP SOUTH PROGRESS NOTE PSYCH ---
Psych (Inpt) Progress Note Progress Note BOB, RN, OTR/L, Group and Activities Therapist, and Psychiatrist discussed the pt.'s progress, treatment plan, and aftercare plans. Vital Signs: Vital Signs Date Time Temp Pulse Resp B/P B/P Pulse O2 O2 Flow FiO2 Mean Ox Delivery Rate 09/08 0743 97.4 79 18 124/78 09/08 0740 97.4 79 124/78 09/07 1946 98.3 88 136/76 Mental Status: Ed was irritable this morning, he used the F word 3 times and I asked him to leave my office. continues with thought and behavioral disorganization with minimal improvement paranoid & guarded, agitated, impaired attention and concentration, some perseveration, denied thoughts of suicide, denied thoughts of violence or homicide, denied hallucinations, seemed to be internally preoccupied (probably responding to internal stimuli). Alert and oriented to place and person. Assessment Update: Jorge Lindsey is a 52-year-old Single White Male re-admitted following a quick decompensation into an acute psychotic state. Ed remains thoughts disordred, delusional and paranoid. Diagnoses: Schizoaffective disorder, bipolar type, current episode mixed with psychotic symptoms Treatment Plan Update: Depakote ER 500 mg in AM and 1000 mg at bedtime PRN Ativan 1 mg as patient remains acutely psychotic Zyprexa to 20 mg at bedtime (last increased on 09/07/2017)
--- NOTE | 2017-09-08 16:52 | SOCIAL WORKER PROG NOTE PSYCH ---
Social Work Progress Note Progress Note This job specification writer met with patient. He is interested in learning where he is on the [facility] wait list and was agreeable to this job specification writer contacting [facility]. He reported that his sleep was "fine" and his mood is "patient." Patient was easily distracted writing notes during this conversation. He expressed feeling relieved that "no one gave me colon cancer this time." Patient shared that his belongings remain at the [facility] address where he was staying prior to this admission and wanted to contact "Lui" to request his belongings. This job specification writer spoke with Linda at [facility] by phone. She will relay the inquiry to Lore Donnelly, patient's case assistant, about [facility]. She stated that [facility] is full right now and if/when the patient is agreeable to [facility], a referral could be made. 3:06pm: This job specification writer left vm for Lore Donnelly requesting a call back regarding the [facility]. A call back number was provided. Patient approached this job specification writer later in the afternoon, appearing much clear than previously and stated that he would like to sign an ABUNDIO for his sister, Do Joel, in interest of scheduling a family meeting. He also added Hunter Donnelly to the ABUNDIO. He stated that he would contact Hunter to inform of the meeting. He would also like to invite Lore Donnelly. This job specification writer spoke with Do and family meeting is scheduled for 09/09/17 at 10: 30am. This job specification writer left a vm for Lore informing her of the meeting [phone]) .
[2017-09-08 19:53] VITALS: BP 150/86
[2017-09-09 07:46] VITALS: BP 111/78
--- NOTE | 2017-09-09 08:40 | CP SOUTH PROGRESS NOTE PSYCH ---
Psych (Inpt) Progress Note Progress Note BOB, RN, OTR/L, Group and Activities Therapist, and Psychiatrist discussed the pt.'s progress, treatment plan, and aftercare plans. Vital Signs: Vital Signs Date Time Temp Pulse Resp B/P B/P O2 09/09 0934 96.1 80 18 111/78 09/09 0746 96.1 80 111/78 09/08 1953 98.6 89 150/86 Mental Status: Ed was calm/not irritable this morning, no F words today He has thought and behavioral disorganization with minimal improvement. Ed is still paranoid & guarded but less so today, not agitated, impaired attention and concentration, some perseveration, he denied thoughts of suicide, denied thoughts of violence or homicide, denied hallucinations, seemed to be internally preoccupied (probably responding to internal stimuli). Alert and oriented to place and person. Assessment Update: Jorge Lindsey is a 52-year-old Single White Male re-admitted following a quick decompensation into an acute psychotic state. Ed remains thought-disordred, delusional and paranoid. Diagnoses: Schizoaffective disorder, bipolar type, current episode mixed with psychotic symptoms Treatment Plan Update: Continue Depakote-ER 500 mg in AM and 1000 mg at bedtime Continue PRN Ativan 1 mg as patient remains acutely psychotic Zyprexa to 20 mg at bedtime (last increased on 09/07/2017)
--- NOTE | 2017-09-09 17:40 | SOCIAL WORKER PROG NOTE PSYCH ---
Social Work Progress Note Progress Note This policy writer typist spoke with patient's sister, Do, regarding today's meeting at 10 :30am. After speaking with Dr. Kenyon, the patient and Ellen, it was determined that the meeting would be re-scheduled when all are able to attend ( patient's sister, Lore Donnelly, his sponsor and Dr. Kenyon). This policy writer typist had not received a call back from Lore Donnelly (vm left for her yesterday regarding the meeting) and patient stated that he had been unable to reach his sponsor. Lore Donnelly came to at 10:30am. This policy writer typist explained the change in the meeting initially scheduled for today. Patient wanted to discuss housing issues and the three of us met. We called patient's sister in effort to inform her of this and left a vm. Lore stated that the patient still needs to complete the finger printing for the [facility]. She also stated that a referral had been made to [facility] 2-3 weeks ago. Finally, she stated that Lui from the [facility] had mentioned "another option," however, she did not have any additional information. We discussed the [facility] bed and patient was encouraged by Lore to consider/pursue this. Patient appeared ambivalent. Lore agreed with the plan to schedule a meeting when all can attend. This policy writer typist will contact her regarding the meeting date/time. This policy writer typist met with the patient regarding the [facility] bed. We discussed his thoughts and explored his ambivalence. Patient identified this as "another option" that he would like to consider. Patient signed an ABUNDIO and this policy writer typist left a vm for Rakesh Kelly ([phone]) with a call back number.
[2017-09-09 20:08] VITALS: BP 143/83
[2017-09-10 08:04] VITALS: BP 124/71
--- NOTE | 2017-09-10 12:56 | CP SOUTH PROGRESS NOTE PSYCH ---
Psych (Inpt) Progress Note Progress Note Include the following elements, when applicable: Involvement in the active treatment of the patient with behavioral observations of the patient and the patient's response to the treatment. Review of the ongoing treatment process in the context of the treatment plan. Indication of how multi-disciplinary staff members are carrying out the treatment plan. Plans for future interventions and recommendations for revision of the treatment plan. Liaison with other physicians/providers. Progress Note: Disorganized, showing papers in his room, making random statements about his property "my shoes are those, the pen is here, I didn't go for breakfast..." Difficult to engage, able to answer basic questions. Denied having any difficulties with his sleep, appetite or energy. MSE: pleasant middle aged man, poor eye contact, fair grooming and hygiene. His speech is regular rate, with frequent illogical statements, regular volume. His thinking is disorganized, illogical and void of meaningful content. He denies experiencing hallucinations but likely is based on his distractedness and internal monologue. He denies thinking of wanting to harm himself or anyone else. His affect is constricted and mood is neutral. His insight is impaired and judgment is impaired. 52 year old man with significant psychotic history, continues to be grossly thought disordered, with disorganized statements, word salad at times, but able to answer basic questions. Plan: continue education and support, redirection if indicated. Encourage medication adherence and continue medication education.
[2017-09-10 19:46] VITALS: BP 147/93
[2017-09-11 07:55] VITALS: BP 124/79
--- NOTE | 2017-09-11 11:04 | CP SOUTH PROGRESS NOTE PSYCH ---
Psych (Inpt) Progress Note Progress Note Include the following elements, when applicable: Involvement in the active treatment of the patient with behavioral observations of the patient and the patient's response to the treatment. Review of the ongoing treatment process in the context of the treatment plan. Indication of how multi-disciplinary staff members are carrying out the treatment plan. Plans for future interventions and recommendations for revision of the treatment plan. Liaison with other physicians/providers. Progress Note: Stated that he wants to go to a rehab program rather than housing because he thinks that substance use is easier for him to focus on treating. We discussed his extensive mental health history and managing that concurrently, and that a rehab program might not be where the discharge plan is going at this time. We spoke about group programming, he stated that he is fearful of them. He continues to write bizarre, disorganized letters, he was focused on the of his common law of many years and more dysphoric about it. He appeared marginally more organized today but quickly derailed, "there's someone here, he' s into video games, royer, and now he's playing games with someone else's lives , I'll kill that son of a bitch who tries to mess with me..." We spoke about informing staff if/when he feels unsafe, about communicating in general with the staff during the day time. He states that he and his roommate get along fairly well. MSE: pleasant middle aged man, fair eye contact, fair grooming and hygiene. His speech is regular rate and volume. Affect is constricted and mood is annoyed. He is initially more coherent but quickly with disorganized paranoid statements, referential thinking at times. He denies experiencing hallucinations but likely is on the unit, though not internally preoccupied during our interaction. He threatens to harm someone if they harm him, but no specific person and is able to de-escalate himself quickly. No thoughts to harm himself. His insight is impaired and judgment is impaired. 52 year old man with significant psychotic history, continues to be grossly thought disordered, with disorganized statements and paranoia. Plan: continue education and support, redirection if indicated. Educated to inform staff when feeling uncomfortable or unsafe. Encourage medication adherence and continue medication education.
[2017-09-11 19:49] VITALS: BP 118/75
[2017-09-12 08:04] VITALS: BP 131/79
--- NOTE | 2017-09-12 08:42 | CP SOUTH PROGRESS NOTE PSYCH ---
Psych (Inpt) Progress Note Progress Note I reviewed Dr. Burnham's notes for the weekend (09/10 and 2017). UNINDENTURED APPRENTICE, RN, OTR/L, Group and Activities Therapist, and Psychiatrist discussed the pt.'s progress, treatment plan, and aftercare plans. Vital Signs: Date Time Temp Pulse B/P B/P Pulse O2 FiO2 09/12 0804 96.9 85 131/79 Mental Status: Ed was irritable, believes that his life may be in danger on this unit, paranoid about patients and staff alike He has thought disorganization but less agitated, impaired attention and concentration, some perseveration, Although he said he was afraid of dying, he said he wished we would give him a pill to kill him quick and easy denied thoughts of violence or homicide, Today was the first time he acknowledged (to me) that he was experiencing audio hallucinations, seemed to be internally preoccupied (probably responding to internal stimuli). Alert and oriented to place and person. Assessment Update: Jorge Lindsey is a 52-year-old Single White Male re-admitted following a quick decompensation into an acute psychotic state. Ed remains thought-disordred, delusional and paranoid with very slow improvement Diagnoses: Schizoaffective disorder, bipolar type, current episode mixed with psychotic symptoms Treatment Plan Update: Continue Depakote-ER 500 mg in AM and 1000 mg at bedtime Continue PRN Ativan 1 mg as patient remains acutely psychotic Zyprexa to 20 mg at bedtime (last increased on 09/07/2017)
--- NOTE | 2017-09-12 13:57 | RADIOLOGY REPORT ---
EXAMINATION: XR CHEST CLINICAL INFORMATION: Coughing up blood. COMPARISON: Chest x-ray 07/12/2017 TECHNIQUE: 2 views of the chest were obtained. 1:27 PM FINDINGS: No significant abnormality is noted involving the heart, lungs, mediastinum, bony thorax or soft tissues. IMPRESSION: Unremarkable examination.
--- NOTE | 2017-09-12 16:46 | SOCIAL WORKER PROG NOTE PSYCH ---
Social Work Progress Note Progress Note Shirley Muhammad (PA student) and this technical writer met with patient. He appeared to be more organized in thought for the majority of the conversation, however, this appeared to change towards the end of the conversation. Patient discussed the loss of his girlfriend and how he now feels helpless. He talked about having a "glimmer of hope" and how he has utilized staff here on [facility] for support. Patient commented on his joan as well as the role that AA has played in his life and recovery. Patient discussed fear of others on the unit and therefore feels unsafe. He expressed not wanting to "go on" anymore. He denied any suicidal thoughts or homicidal thoughts. This was relayed to Radha Montenegro RN.
[2017-09-12 19:42] VITALS: BP 123/74
[2017-09-13 08:06] VITALS: BP 138/84
--- NOTE | 2017-09-13 09:13 | CP SOUTH PROGRESS NOTE PSYCH ---
Psych (Inpt) Progress Note Progress Note COMPUTER ASSEMBLER, RN, OTR/L, Group and Activities Therapist, and Psychiatrist discussed the pt.'s progress, treatment plan, and aftercare plans. Vital Signs: Date Time Temp Pulse Resp B/P 09/13 0902 97.5 71 18 138/84 09/13 0806 97.5 71 138/84 Mental Status: Ed reported feeling irritable, still believes that his life may be in danger on this unit (paranoid about patients and staff alike), seemed more coherent today compared to yesterday, less agitated, impaired attention and concentration, some perseveration. Although he said he was afraid of dying, and easy, denied thoughts of violence or homicide. acknowledged (to me) that he was experiencing audio hallucinations, seemed to be internally preoccupied (probably responding to internal stimuli). Alert and oriented to place and person. Assessment Update: Pt. is a 52-year-old Single White Male re-admitted following a quick decompensation into an acute psychotic state. Ed remains thought-disordred, delusional and paranoid with very slow improvement Diagnoses: Schizoaffective disorder, bipolar type, current episode mixed with psychotic symptoms Treatment Plan Update: Continue Depakote-ER 500 mg in AM and 1000 mg at bedtime Continue PRN Ativan 1 mg as patient remains acutely psychotic Continue Zyprexa 20 mg at bedtime (last increased on 09/07/2017)
--- NOTE | 2017-09-13 16:19 | SOCIAL WORKER PROG NOTE PSYCH ---
Social Work Progress Note Progress Note This caption writer met with patient. He discussed frustration with patients who attend AA meetings on this unit and do not appear to be dedicated to recovery. Patient discussed the positive role that AA has played in his life and on his recovery. Patient discussed how he feels on this unit around others. He continues to feel at risk by peers in which they are listening in on him. When asked about how he feels regarding safety, patient stated, "I couldn't tell you. That's where prayer kicks in and where the Zoloft kicks." (This caption writer relayed patient's response (including not identifying whether or not he feels safe towards himself ) to Radha Montenegro RN. Patient was informed that this caption writer would contact [facility] regarding the ICC bed, which patient appears to remain interested in. 11:46am This caption writer spoke with Linda at [facility] who was informed that the patient is agreeable to a referral to [facility]. She provided the number to [facility] ). This caption writer spoke with gas meter repair supervisor, Theodora, who stated that [facility] would contact them for a screening/referral and then Theodora would contact this caption writer for clinical information. This was relayed to Linda who will begin the process.
[2017-09-13 20:06] VITALS: BP 130/71
[2017-09-14 08:00] VITALS: BP 114/73
--- NOTE | 2017-09-14 12:21 | CP SOUTH PROGRESS NOTE PSYCH ---
Psych (Inpt) Progress Note Progress Note The pt.'s progress, treatment plan, aftercare plans were discussed (BOB, RN, OTR/L, Group and Activities Therapist, Psychiatrist) Vital Signs: Date Time Temp Pulse Resp B/P 09/13 0902 97.5 71 18 138/84 09/13 0806 97.5 71 138/84 Mental Status: Ed reported feeling irritable, still believes that his life may be in danger on this unit (paranoid about patients and staff alike), seemed more coherent today compared to yesterday, less agitated, impaired attention and concentration, some perseveration. Although he said he was afraid of dying, and easy, denied thoughts of violence or homicide. He acknowledged (to me) that he was experiencing audio hallucinations. He seemed to be internally preoccupied ( probably responding to internal stimuli). Alert and oriented to place and person. Assessment Update: Pt. is a 52-year-old Single White Male re-admitted following a quick decompensation into an acute psychotic state. Ed remains thought-disordred, delusional and paranoid with very slow improvement Diagnoses: Schizoaffective disorder, bipolar type, current episode mixed with psychotic symptoms Treatment Plan Update: Continue Depakote-ER 500 mg in AM and 1000 mg at bedtime Continue PRN Ativan 1 mg as patient remains acutely psychotic Continue Zyprexa 20 mg at bedtime (last increased on 09/07/2017)
--- NOTE | 2017-09-14 17:21 | SOCIAL WORKER PROG NOTE PSYCH ---
Social Work Progress Note Progress Note This narrative writer met with patient. He described his mood as "stable." He was lying on his bed, staring at the ceiling and provided no eye contact during this meeting. Patient was also minimally engaged in the conversation providing brief responses. He briefly discussed his committment to AA and recovery and feeling disappointed that others on the unit were not as committed to their own recovery. Patient ended this conversation by leaving the room.
[2017-09-14 19:58] VITALS: BP 132/86
[2017-09-15 08:20] VITALS: BP 109/71
--- NOTE | 2017-09-15 11:59 | CP SOUTH PROGRESS NOTE PSYCH ---
Psych (Inpt) Progress Note Progress Note Mental Status: Ed reported feeling depressed. Although he still believes that his life may be in danger on this unit, Ed was less paranoid today. He was not agitated. He does struggle with impaired attention and concentration, and some perseveration. He denied thoughts of violence or homicide. He denied experiencing audio hallucinations today. He seemed to be internally preoccupied. Ed was alert, and oriented to place and person. Assessment Update: Pt. is a 52-year-old Single White Male re-admitted following a quick decompensation into an acute psychotic state. Ed is showing very slow improvement. He is still struggling with a thought disorder, paranoid delusions and (??) audio hallucinations (??) Diagnoses: Schizoaffective disorder, bipolar type, current episode mixed with psychotic symptoms Treatment Plan Update: Start Sertraline 50 mg daily Continue all other medications unchanged Amlodipine Besylate 5 MG DAILY 08/29 09 AC 09/15 PO 0813 Benztropine Mesylate 1 MG Q6P PRN 08/30 1100 AC 09/04 PO 0157 Benztropine Mesylate 1 MG Q6P PRN 08/30 1100 AC 08/30 IM 1100 Divalproex Sodium 500 MG DAILY 09/07 1030 AC 09/15 PO 0814 Divalproex Sodium 1,000 MG QPM 09/01 2100 AC 09/14 PO 2131 Fenofibrate 145 MG DAILY 08/29 0900 AC 09/15 PO 0813 Haloperidol 5 MG Q6P PRN 09/07 1030 AC PO Haloperidol 5 MG Q6P PRN 08/30 1100 AC IM Hydrochlorothiazide 25 MG DAILY 09/02 0900 AC 09/15 PO 0814 Lorazepam 1 MG Q6P PRN 09/12 1415 AC 09/15 PO 0100 Olanzapine 20 MG AT BEDTIME 09/07 2100 AC 09/14 PO
--- NOTE | 2017-09-15 14:02 | SOCIAL WORKER PROG NOTE PSYCH ---
See Addendum Mauricio Campuzano 09/15/17 1345: Social Work Progress Note Progress Note I Mauricio Carolinamilagros (FOOD SCIENTIST technical internship) met with Jorge this afternoon. He was eating his lunch in the kitchen but was agreeable to talking, He appeared depressed, tired and lonely. He reported " being fed up with the sytem".He displayed irritablity when I inquired about his level of anxiety he said " look up that the word anxiety because I do not know what that word means" He expressed that he has been hospitalized twenty times in the past and feels that no one is helping him. I asked what he was working on with his social media marketing analyst Selam Iglesias to which he replied nothing. He appeared to be paranoid about things in his room going missing. He gave short answers to questions and he was very closed off about sharing his thoughts. He is very eager and determined to talk with the [facility]. He could not express what else can be done to help him feel better.
--- NOTE | 2017-09-15 17:37 | SOCIAL WORKER PROG NOTE PSYCH ---
Social Work Progress Note Progress Note 10:10am This senior writer spoke with Linda at [facility] ([phone]) regarding the [facility] referral. She stated that the forms are being completed and will inform this senior writer when the referral is submitted. This senior writer left a vm for patient's case operator, Lore Donnelly, at 4:19pm today requesting a call back ([phone]). This senior writer met with patient. He was interested in calling [facility] ([phone]) to inquire about his status on the wait list. He spoke with Damien who stated that they are waiting on the results of the 2nd set of finger prints. Following the phone call, patient described his mood as "I'm doing." He denied SI/HI/AH/VH. He reported a positive conversation with Mauricio Campuzano (IMMIGRATION JUDGE finance accounting internship) earlier today and is willing to meet with her again tomorrow. Patient presented as depressed, however engaged in the conversation. He demonstrated a slightly better mood after speaking with the [facility]. This senior writer informed patient that a vm had been left for Lore Donnelly.
[2017-09-15 19:36] VITALS: BP 143/84
[2017-09-16 08:27] VITALS: BP 110/59
--- NOTE | 2017-09-16 08:50 | CP SOUTH PROGRESS NOTE PSYCH ---
Psych (Inpt) Progress Note Progress Note The pt.'s progress, inpatient treatment plan, and aftercare plans were discussed in the morning treatment planning meeting (team members: Christy Iglesias, BOB, RN , OTR/L, and Psychiatrist) Vital Signs Date Time Temp Pulse Resp B/P B/P Pulse O2 O2 Flow FiO2 09/16 0833 97.0 73 18 110/59 09/16 0827 97.0 73 110/59 08/ 1936 97.7 81 143/84 Mental Status: Ed was irritable and reported feeling depressed. He appeared to be less paranoid but more haughty. He struggles with impaired attention and concentration, and some difficulties with information processing. He denied thoughts of violence or homicide. He denied experiencing audio hallucinations today. He seemed to be internally preoccupied. Ed was alert, and oriented to place and person. Assessment Update: Jorge Lindsey (: ) is a 52-year-old Single White Male re-admitted following a quick decompensation into an acute psychotic state. Ed is showing very slow improvement. He is still struggling with a thought disorder, paranoid delusions and (??) audio hallucinations (??) despite his denial Diagnoses: Schizoaffective disorder, bipolar type, current episode mixed with psychotic symptoms Treatment Plan Update: Continue Zyprexa 20 mg at bedtime Pt. was educated on [place]'s benefits and risks and I brought it up again as a replacement for Depakote, still not interested Continue all other medications unchanged Olanzapine 20 MG AT BEDTIME 09/07 2100 AC 09/14 PO
--- NOTE | 2017-09-16 17:50 | SOCIAL WORKER PROG NOTE PSYCH ---
Social Work Progress Note Progress Note This abstract writer spoke with Linda at [facility] by phone. She stated that the ICC referral is being faxed today. Shirley Sarah (PA student) and this abstract writer met with the patient. He appeared agitated and less engaged/motivated for discussion. This abstract writer informed him of the conversation with [facility]. He stated that he does not want to pursue the ICC bed and plans to move into housing through [facility] once accepted. Patient stated that he is also willing to live on the street if housing is not available. "I'm not gonna sign anything else." This abstract writer attempted to assist patient in exploring his thoughts further, however, patient appeared very resistant. Patient was willing to have a family meeting scheduled for next or Tue with his sister and Lore Donnelly. "Until then thiis meeting is adjorned." The meeting ended at this time. This abstract writer spoke with Linda at [facility] ([phone]) to update on patient's thoughts regarding ICC (as was Dr. Kenyon). Linda will also relay a message to Lore Donnelly about the family meeting. This abstract writer left a vm for Do Joel at 2pm ([phone]) regarding the family meeting and requested a call back. A call back number was provided.
[2017-09-16 19:45] VITALS: BP 126/80
[2017-09-17 08:02] VITALS: BP 117/79
--- NOTE | 2017-09-17 11:28 | CP SOUTH PROGRESS NOTE PSYCH ---
Psych (Inpt) Progress Note Progress Note Pt note that mood is "its going" which he characterized as as "OK." He notes some difficulty with sleep overnight but feels that wants no medication changes made. Notes no cough today. Denies SI or HI. Current Medications Sig/Mary Start time Last Medication Dose Route Stop Time Status Admin Amlodipine Besylate 5 MG DAILY 08/29 0900 AC 09/17 PO 0857 Benztropine Mesylate 1 MG Q6P PRN 08/30 1100 AC 09/04 PO 0157 Benztropine Mesylate 1 MG Q6P PRN 08/30 1100 AC 08/30 IM 1100 Divalproex Sodium 500 MG DAILY 09/07 1030 AC 09/17 PO 0857 Divalproex Sodium 1,000 MG QPM 09/01 2100 AC 09/16 PO 2120 Fenofibrate 145 MG DAILY 08/29 0900 AC 09/17 PO 0856 Haloperidol 5 MG Q6P PRN 09/07 1030 AC PO Haloperidol 5 MG Q6P PRN 08/30 1100 AC IM Hydrochlorothiazide 25 MG DAILY 09/02 0900 AC 09/17 PO 1018 Ibuprofen 600 MG Q4P PRN 09/16 0845 AC 09/16 PO 2134 Lorazepam 1 MG Q6P PRN 09/12 1415 AC 09/16 PO 0229 Olanzapine 20 MG AT BEDTIME 09/07 2100 AC 09/16 PO 2120 Sertraline HCl 50 MG DAILY 09/15 1317 AC 09/17 PO 0857 Vital Signs Date Time Temp Pulse Resp B/P B/P Pulse O2 O2 Flow FiO2 Mean Ox Delivery Rate 09/18 0757 71 117/79 /04 0802 96.3 71 117/79 /03 1945 97.7 88 126/80 MSE Appearance: as stated age Speech : nl rate, rhythm, volume and prosody Behavior: cooperative Motor: + psychomotor retardation Mood : going Affect : flat, non-labile, irritable, appropriate, constricted Thought process: linear and goal directed Thought content : no delusions or paranoia Perceptions: denied AVHs, denied SI or HI Insight: poor Judgment: poor A/P: Pt with bipolar with psychotic features and hx of AUD with continue poor mood though improved as no thoughts of harm to self. - Continue current medication regimen
[2017-09-17 19:48] VITALS: BP 126/79
[2017-09-18 07:48] VITALS: BP 134/89
--- NOTE | 2017-09-18 12:00 | CP SOUTH PROGRESS NOTE PSYCH ---
Psych (Inpt) Progress Note Progress Note Pt notes that he is "doing." Denies SI or HI. Reports slept better overnight. Current Medications Sig/Mary Start time Last Medication Dose Route Stop Time Status Admin Amlodipine Besylate 5 MG DAILY 08/29 0900 AC 09/18 PO 0951 Benztropine Mesylate 1 MG Q6P PRN 08/30 1100 AC 09/04 PO 0157 Benztropine Mesylate 1 MG Q6P PRN 08/30 1100 AC 08/30 IM 1100 Divalproex Sodium 500 MG DAILY 09/07 1030 AC 09/18 PO 0951 Divalproex Sodium 1,000 MG QPM 09/01 2100 AC 09/17 PO 2151 Fenofibrate 145 MG DAILY 08/29 0900 AC 09/18 PO 0951 Haloperidol 5 MG Q6P PRN 09/07 1030 AC PO Haloperidol 5 MG Q6P PRN 08/30 1100 AC IM Hydrochlorothiazide 25 MG DAILY 09/02 0900 AC 09/18 PO 0951 Ibuprofen 600 MG Q4P PRN 09/16 0845 AC 09/16 PO 2134 Lorazepam 1 MG Q6P PRN 09/12 1415 AC 09/18 PO 0137 Olanzapine 20 MG AT BEDTIME 09/07 2100 AC 09/17 PO 2151 Sertraline HCl 50 MG DAILY 09/15 1317 AC 09/18 PO 0951 Vital Signs Date Time Temp Pulse Resp B/P B/P Pulse O2 O2 Flow FiO2 Mean Ox Delivery Rate 09/18 950 66 134/89 08/05 0748 97.6 66 134/89 /04 1948 99.1 87 126/79 MSE Appearance: as stated age Speech : nl rate, rhythm, volume and prosody Behavior: cooperative Motor: + psychomotor retardation Mood : doing Affect : flat, non-labile, irritable, appropriate, constricted Thought process: linear and goal directed Thought content : no delusions or paranoia Perceptions: denied AVHs, denied SI or HI Insight: poor Judgment: poor A/P: Pt with bipolar with psychotic features and hx of AUD with continue poor mood though improved as no thoughts of harm to self. - Continue current medication regimen
[2017-09-18 19:57] VITALS: BP 125/76
--- NOTE | 2017-09-19 08:23 | CP SOUTH PROGRESS NOTE PSYCH ---
Psych (Inpt) Progress Note Progress Note I reviewed Dr. Fontana's notes for the weekend of September 17 and 2017. The pt.'s progress, inpatient treatment plan, and aftercare plans were discussed in the treatment planning meeting (team members: Christy Iglesias LCSW, RN, OTR/L, and Psychiatrist) Vital Signs: Date Time Temp Pulse Resp B/P O2 09/19 0857 97.4 67 18 133/78 09/19 0841 97.4 67 133/78 Mental Status: Ed complained of back pain, he continues to have some edge to him/irritable. He reported feeling depressed. He appeared to be less paranoid but continues to struggle with impaired attention and concentration, and some difficulties with information processing. He denied thoughts of violence or homicide. He denied experiencing audio hallucinations today. He seemed to be internally preoccupied. Ed was alert, and oriented to place and person. Assessment Update: Jorge Lindsey (: 1965) is a 52-year-old Single White Male who was admitted following decompensation into an acute psychotic state. Ed is showing very slow improvement. He is still struggling with a thought disorder, paranoid delusions. He has been denying audio hallucinations x 6 days Diagnosis: Schizoaffective disorder, bipolar type, current episode mixed with psychotic symptoms Treatment Plan Update: Continue Zyprexa 20 mg at bedtime Continue all other medications unchanged
[2017-09-19 08:41] VITALS: BP 133/78
--- NOTE | 2017-09-19 17:50 | SOCIAL WORKER PROG NOTE PSYCH ---
Social Work Progress Note Progress Note This web content writer met with patient. He stated that he had a "quiet" weekend. He discussed feeling hopeful about getting an apartment through [employer] and maintains that he does not want to identify any "plan b's. Only plan A [[employer]]." Patient described his mood as "patient, a little bit depressed. I'm waiting for my blue prints to come through." He complained of feeling dizyzy and plans to discuss this with Dr. Kenyon today. He denied SI/HI/AH/VH. Dr. Kenyon joined the conversation with a medical student. Patient explained to him that he is not interested in pursuing the [facility] bed and, consistent with the past, has refused to sign a [facility] ABUNDIO (as needed for the [facility] bed). Dr. Kenyon addressed medications, including questions/concerns. Patient also discussed the dizzyness. Dr. Kenyon continued to meet with the patient beyond the time that this web content writer left the room.
[2017-09-19 19:39] VITALS: BP 129/77
[2017-09-20 08:01] VITALS: BP 111/72
--- NOTE | 2017-09-20 09:12 | CP SOUTH PROGRESS NOTE PSYCH ---
Psych (Inpt) Progress Note Progress Note The pt.'s progress, inpatient treatment plan, and aftercare plans were discussed in the treatment planning meeting (team members: Christy Iglesias LCSW, RN, OTR/L, and Psychiatrist) Vital Signs: Date Time Temp Pulse B/P 09/20 0928 71 111/72 09/20 0801 97.0 71 111/72 Mental Status: The patient complained of back pain, he continues to have some irritability. He reported feeling depressed. He appeared to be less paranoid but continues to struggle with impaired attention and concentration, and some difficulties with information processing. He denied thoughts of violence or homicide. He denied experiencing audio hallucinations today. He seemed to be internally preoccupied. Ed was alert, and oriented to place and person. Assessment Update: A 52-year-old Single White Male who was admitted following decompensation into an acute psychotic state. Since his admission on 08/29/2017, the patient is showing very slow improvement. He is still struggling with a thought disorder, paranoid delusions. He has been denying audio hallucinations x 6 days Diagnosis: Schizoaffective disorder, bipolar type, current episode mixed with psychotic symptoms Treatment Plan Update: Continue Zyprexa 20 mg at bedtime Continue all other medications unchanged
--- NOTE | 2017-09-20 17:13 | SOCIAL WORKER PROG NOTE PSYCH ---
Social Work Progress Note Progress Note 9:58am This financial underwriter spoke with patient's sister, Do Joel, and telephonic case manager, Lore Donnelly. A family meeting has been scheduled for tomorrow, 09/21/17, at 10am. 3:45pm This financial underwriter met with patient. He was informed of and accepted the family meeting for tomorrow at 10am. We called his sponsor, Dano ([phone]), and left a vm regarding the family meeting with the date and time. This financial underwriter provided a call back number as well. Patient also requested to call [facility]. He left a message with the answering service and provided this financial underwriter's call back number. He requested to look at the referral form for the [facility] bed, however, stated that he is still not interested in pursuing this at this time and would like to focus only on "plan A", referring to [facility]. Patient described his mood as "same as before. Discontent." He would not describe this further. He denied SI/HI/hallucinations. He stated that his depression is "situational. My finances, my love life."
[2017-09-20 20:07] VITALS: BP 134/84
[2017-09-21 08:11] VITALS: BP 133/84
--- NOTE | 2017-09-21 12:27 | CP SOUTH PROGRESS NOTE PSYCH ---
Psych (Inpt) Progress Note Progress Note The pt.'s progress, inpatient treatment plan, and aftercare plans were discussed in the treatment planning meeting (team members: Christy Iglesias LCSW, RN, OTR/L, and Psychiatrist) Vital Signs: Date Time Temp Pulse Resp B/P 09/22 0734 97.1 70 18 133/84 09/21 0811 97.1 70 133/84 Mental Status: The patient reported feeling depressed. He appeared to be less paranoid but continues to struggle with impaired attention and concentration, some difficulties with information processing. He denied wishing or thinking of suicide. He denied thoughts of violence or homicide. He denied experiencing audio hallucinations today. He seemed to be internally preoccupied. Ed was alert , and oriented to place and person. Assessment Update: A 52-year-old Single White Male who was admitted following decompensation into an acute psychotic state. Since his admission on 08/29/2017, the patient is showing very slow improvement. He is still struggling with a thought disorder, paranoid delusions. He has been denying audio hallucinations x 6 days Diagnosis: Schizoaffective disorder, bipolar type, current episode mixed with psychotic symptoms Treatment Plan Update: Continue Zyprexa 20 mg at bedtime Continue Zoloft 100 mg every morning Continue all other medications unchanged
--- NOTE | 2017-09-21 18:24 | SOCIAL WORKER PROG NOTE PSYCH ---
Social Work Progress Note Progress Note 10am Dr. Kenyon and this freelance writer met with the patient, his sister (Do Joel) and his case picker (Lore Donnelly) for a family meeting. Patient's sponsor had been invited, but per patient, was unable to attend. Housing and discharge plans were discussed. Dr. Kenyon discussed medications as well as related questions and concerns. Patient was ultimately agreeable to signing an ABUNDIO for [facility] and continuing with the referral to the [facility] bed. He was adament that [facility] is his "Plan A." This freelance writer received a vm from [facility] for the patient stating that they are still waiting for the finger prints and will be in contact once they are received. Patient was informed of this.
[2017-09-21 19:46] VITALS: BP 133/82
[2017-09-22 08:00] VITALS: BP 125/77
--- NOTE | 2017-09-22 09:52 | CP SOUTH PROGRESS NOTE PSYCH ---
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 He denied wishing or thinking of suicide. He denied thoughts of violence or homicide. He denied experiencing audio hallucinations today (("it is my conscience") seems internally preoccupied. alert, and oriented to place and person. Assessment Update: A 52-year-old Single White male who was admitted following decompensation into an acute psychotic state. Since his admission on 08/29/2017, the pt. is showing very slow improvement. He is still struggling with a thought disorder, paranoid delusions. has been denying audio hallucinations x 6 days (??, he says he does not hear voices, "it is my conscience" Diagnosis: Schizoaffective disorder, bipolar type, current episode mixed with psychotic symptoms Treatment Plan Update: Continue Zyprexa 20 mg at bedtime Continue Zoloft 100 mg every morning Continue all other medications unchanged
[2017-09-22 11:56] VITALS: BP 121/84
--- NOTE | 2017-09-22 18:28 | SOCIAL WORKER PROG NOTE PSYCH ---
Social Work Progress Note Progress Note This publicity writer spoke with Theodora at [facility] regarding the ICC bed. She requested documentation/records and was faxed the following records to [phone] at 5:35pm: -History and Physical -Psycheval/Initial assessment -labs -progress notes (09/18-09/22/17) -Med administration list This publicity writer spoke with a clinician at [facility] informing that the documents would be faxed and asked that he leave them for Theodora. In addition, he will leave a message for her asking if the med administration list is needed to show all administrations of medications or just the last dose. This publicity writer met with patient. He described his mood as "normal, whatever is normal." He stated that he remains depressed and "not motivated." He was informed of this publicity writer's conversation with Theodora at [facility] and that he is welcome to call her tomorrow with questions about ICC. Patient was thankful for this. He discucssed wanting to "get back to being independent" and identified how ICC might be helpful in doing so. This publicity writer left s for Rakesh Kelly at [facility] at 4:53pm and a return call at 5: 23pm. This publicity writer will follow up with her tomorrow.
[2017-09-22 20:03] VITALS: BP 138/82
--- NOTE | 2017-09-23 08:06 | CP SOUTH PROGRESS NOTE PSYCH ---
Psych (Inpt) Progress Note Progress Note The pt.'s progress, inpatient treatment plan, and aftercare plans were discussed in the treatment planning meeting (team members: Christy Iglesias LCSW, RN, OTR/L, and Psychiatrist) Vital Signs: Date Time Temp Pulse B/P B/P Pulse O2 FiO2 09/23 0934 65 129/80 09/23 0855 96.8 65 129/80 Mental Status: The patient seems more interactive today, he did not think that there was not much change in his mood however his affect is looking a tiny bit brighter His conversation was also more coherent. He was alert and oriented to time, place, and person Minimal tardive Dyskinesia of lower and upper extremities (more visible when he is lying down) less paranoid, Today he is showing improved attention, concentration, and information processing. He denied wishing or thinking of suicide. He denied thoughts of violence or homicide. He denied experiencing audio hallucinations /"it is my conscience" seems less internally preoccupied. Assessment Update: A 52-year-old Single white male who was admitted following decompensation into an acute psychotic state. Since his admission on 08/29/2017, the pt. is showing slow improvement. Although he is still struggling with a thought disorder and paranoid delusions (and ?? audio hallucinations), he is showing relayive improvement in all areas Diagnosis: Schizoaffective disorder, bipolar type, current episode mixed with psychotic symptoms Treatment Plan Update: Continue Zyprexa 20 mg at bedtime Continue Zoloft 100 mg every morning Continue all other medications unchanged
[2017-09-23 08:55] VITALS: BP 129/80
--- NOTE | 2017-09-23 18:33 | SOCIAL WORKER PROG NOTE PSYCH ---
Social Work Progress Note Progress Note This writer producer met with patient. We called Theodora at [facility] regarding the ICC as patient had questions about the program. Theodora was unavailable to talk at that time and asked that we call on Tuesday. Patient was upset by this and stated, "people are just pushing me off to the side." This writer producer assisted him in adjusting his thinking regarding this situation and identified a different viewpoint. Patient was able to identify how he availability does not necessarily reflect personally on him. Patient identified self-affirmations and how discussed how these can relate to the 12 steps. Patient continue to work on this this and review with this writer producer on Tuesday. Patient was appropriate and engaged during this meeting. He reported feeling depressed, however was less agitated as the meeting progressed.
[2017-09-23 20:35] VITALS: BP 142/84
[2017-09-24 10:18] VITALS: BP 132/87
--- NOTE | 2017-09-24 17:17 | CP SOUTH PROGRESS NOTE PSYCH ---
Psych (Inpt) Progress Note Progress Note Include the following elements, when applicable: Involvement in the active treatment of the patient with behavioral observations of the patient and the patient's response to the treatment. Review of the ongoing treatment process in the context of the treatment plan. Indication of how multi-disciplinary staff members are carrying out the treatment plan. Plans for future interventions and recommendations for revision of the treatment plan. Liaison with other physicians/providers. Progress Note: Case discussed in am with charge nurse.Pt cooperative with care but isolative and withdrawn. Upon assesment pr presents as depressed and with blunted affect. Long winded discussion about his losses and need to find a stable living situation. Denies any SE related to medications. Fair sleep and appetite. MSE MIddle age man disheveled. BLunted affect. No SI/HI. No AVH tangential at times. No delusional ideas. Cog AAox3 I/J LImited/ Fair. A/P MIddle age WM. Schizoaffective Dx./ ETOH Use Dx. Still with depressed features. tolerating medication regimen. Will continues same tx for now. Pt is unclear about dc plan.
[2017-09-24 20:06] VITALS: BP 135/88
[2017-09-25 08:25] VITALS: BP 132/75
--- NOTE | 2017-09-25 13:52 | CP SOUTH PROGRESS NOTE PSYCH ---
Psych (Inpt) Progress Note Progress Note Include the following elements, when applicable: Involvement in the active treatment of the patient with behavioral observations of the patient and the patient's response to the treatment. Review of the ongoing treatment process in the context of the treatment plan. Indication of how multi-disciplinary staff members are carrying out the treatment plan. Plans for future interventions and recommendations for revision of the treatment plan. Liaison with other physicians/providers. Progress Note: Jorge reports he is feeling " about as good as he gets" has remained isolative, withdrawn. Denies any SI/ HI. No psychotic phenomenology. Denies any SE related to medications. MSE MIddle age man. guarded. Poor eye contact. Blunted affect. No SI/HI. No AVH concrete, linear for most part. Cog AAox3 I/J fair. A/P 52 y/o WM Schizoaffective Dx/ ETOH Use Dx. Per his uswbjective reports he is at baseline. Still remains withdrawn and isolative. No evidence of active psychosis. Will continue same tx plan.
[2017-09-25 19:54] VITALS: BP 128/79
[2017-09-26 08:48] VITALS: BP 125/89
--- NOTE | 2017-09-26 14:32 | CP SOUTH PROGRESS NOTE PSYCH ---
Psych (Inpt) Progress Note Progress Note The pt.'s progress, inpatient treatment plan, and aftercare plans were discussed in the treatment planning meeting (team members: Christy Iglesias LCSW, RN, OTR/L, and Psychiatrist) Vital Signs: Date Time Temp Pulse B/P 09/26 0920 78 125/89 09/26 0848 97.7 78 125/89 Mental Status: The patient is alert and oriented x 3. He denied changes in his mood or outlook on life. His conversation is more coherent. He is showing improved attention, concentration, and information processing. He denied wishing or thinking of suicide. He denied thoughts of violence or homicide. He denied experiencing audio hallucinations /"it is my conscience". He eems less internally preoccupied. Assessment Update: Jorge is a 52-year-old single white male who was admitted following decompensation into an acute psychotic state. Since his admission on 08/29/2017, Jorge has shown slow improvement. Although he is still struggling with a thought disorder and paranoid delusions (and-possibly --audio hallucinations), he is showing relative improvement Diagnosis: Schizoaffective disorder, bipolar type, current episode mixed with psychotic symptoms Treatment Plan Update: Continue Zyprexa 20 mg at bedtime Continue Zoloft 100 mg every morning Continue all other medications unchanged Divalproex Sodium 1,000 MG QPM 09/01 2100 Lorazepam 0.5 MG Q6P PRN 09/26 1015
--- NOTE | 2017-09-26 18:48 | SOCIAL WORKER PROG NOTE PSYCH ---
Social Work Progress Note Progress Note This job specification writer spoke with Rakesh Kelly ([phone]) regarding the patient's [facility] referral. She stated that the patient must have a bed identified in order to be accepted. She stated that she would like to speak with [facility] as well. 1:58pm: This job specification writer left a vm for Linda at [facility] ([phone]) regarding the conversation with Pauly Kelly. [facility] was also informed that this job specification writer attempted to reach Lore Donnelly, however, the vm was full. This job specification writer spoke with Theodora ([phone]) at [facility] to inform of the converastion with Rakesh Kelly. Theodora stated that she has all records needed at this time and will contact this job specification writer with any updates or need for any additional records. This job specification writer met with patient. He appeared brighter than previous meetings/ conversations with this job specification writer. When asked about his shift in mood, patient stated, "I had to take a mental health day." He stated that he had contacted his sponsor to discuss possible apartments that he could rent. He appeared more willing to consider other options (ie. ICC) than previously. He was also willing to consider a referral to [facility]'s HARP program and agreed for this job specification writer to contact [facility] regarding this. Patient also discussed thoughts about buying a trailor. He appeared resistant to a Crisis and Respite referral due to the short stay time frame. 4:39pm This job specification writer left a vm for Linda at [facility] regarding patient's interest in HARP. A call back number was provided.
[2017-09-26 20:04] VITALS: BP 132/90
[2017-09-27 08:22] VITALS: BP 120/78
--- NOTE | 2017-09-27 13:37 | CP SOUTH PROGRESS NOTE PSYCH ---
Psych (Inpt) Progress Note Progress Note The pt.'s progress, inpatient treatment plan, and aftercare plans were discussed in the treatment planning meeting (team members: Christy Iglesias LCSW, RN, OTR/L, and Psychiatrist) Vital Signs: Vital Signs Date Time Temp Pulse B/P 09/27 0834 81 120/78 09/27 0822 96.7 81 120/78 Mental Status: The patient is alert and oriented x 3. He denies changes in mood. Negative outlook on life. He's somewhat more coherent. He is showing better attention and concentration. He's somewhat obsessive/ruminative. He denies wishing or thinking of suicide. He denies thoughts of violence or homicide. He denies experiencing audio hallucinations. I have suspicions that he may be hallucinating (e.g. describes something as "it is my conscience"). However, he does seem less internally preoccupied. Assessment Update: Jorge Lindsey is a 52-year-old single white male who was admitted following decompensation into an acute psychotic state. Since his admission to the inpatient pyschiatric unit on 08/29/2017, Jorge has shown slow improvement. Although he is still struggling with a thought disorder and paranoid delusions (and-possibly--audio hallucinations), he is showing relative improvement Diagnosis: Schizoaffective disorder, bipolar type, current episode mixed with psychotic symptoms Treatment Plan Update: Continue Zyprexa 20 mg at bedtime Continue Zoloft 100 mg every morning Continue Divalproex 1,000 MG QPM Lorazepam 0.5 MG Q6P PRN 09/26 1015
--- NOTE | 2017-09-27 17:11 | SOCIAL WORKER PROG NOTE PSYCH ---
Social Work Progress Note Progress Note This quality analyst/technical writer met with patient. Patient stated that he "woke up feeling positive " and is "having a good day." This quality analyst/technical writer inquired about patient's isolative behaviors earlier today, to which he denied any concerns and stated again that he was having a good day. Patient discussed interest in going to the [facility]. This quality analyst/technical writer discussed crisis and respite in [place] and [place]. He appeared willing to consider this, however, stated that he has not heard positive experiences from others who have gone to crisis and respite. Patient was also informed that, per Linda at [facility], referrals have been made to [facility] and [facility]. He stated that he attempted to reach Lore Donnelly (behavioral health case manager), however, her voicemail is full. Patient discussed considering living in his car while waiting for a more permanent housing option, however, was willing to consider other options (such as crisis and respite). Patient denied SI/HI/AH/ VH. He was actively and appropriately engaged in this conversation.
[2017-09-27 20:07] VITALS: BP 146/93
[2017-09-28 08:11] VITALS: BP 146/78
--- NOTE | 2017-09-28 11:31 | SOCIAL WORKER PROG NOTE PSYCH ---
Social Work Progress Note Progress Note Met with Ed, he was in his room sleeping. He didn't want to get up to meet, stated he didn't feel well. He was unable to describe what wasn't feeling good. He stated "I just don't feel well." He was irritable. He layed in bed talking with me - denied SI/HI, no AH/VH. Stated "All I need are numbers for an efficiency apartment." He wanted me to look up phonen numbers listings for apartments, stated I could look into iut, but need to check with Talia Iglesias LCSW as well. ASked if he was interested in IOP, he declined. He didn't seem to be too focused on treatment - just getting an apartment. He eat breakfast, stated he slept ok. He said his plan from prior discharge was to connect with [facility]. He wants to live in [facility] but not [place]. He appears to have poor insight and judgement. Somewhat demanding.
--- NOTE | 2017-09-28 14:30 | CP SOUTH PROGRESS NOTE PSYCH ---
Psych (Inpt) Progress Note Progress Note The pt.'s progress, inpatient treatment plan, and aftercare plans were discussed in the treatment planning meeting (team members: CASHIER CREDIT, RN, OTR/L, and Psychiatrist) Vital Signs: Date Time Temp Pulse Resp B/P 09/28 0836 96.6 75 18 146/78 09/28 0811 96.6 75 146/78 09/27 2006 98.0 70 146/93 Mental Status: Ed denied side effects from medications. Ed reported feeling depressed (not any worse, not any better) is alert and oriented x3. He seemed to have less of a negative outlook on life. He's somewhat more coherent. He is showing better attention and concentration. He is also less obsessive/ruminative today. ED denies wishing or thinking of suicide. He denies thoughts of violence or homicide. Although Ed denies audio hallucinations, I have suspicions that he may be hallucinating Assessment Update: Jorge Lindsey (: ) is a 52-year-old single white male who was admitted following decompensation into an acute psychotic state. Since his admission to the inpatient pyschiatric unit on 08/29/2017, Jorge has shown slow improvement. Although he is still struggling with a thought disorder and paranoid delusions (and may be audio hallucinations), he is showing slow mild improvement Diagnosis: Schizoaffective disorder, bipolar type, current episode mixed with psychotic symptoms Treatment Plan Update: 1) Continue Zyprexa 20 mg PO at bedtime. 2) Continue Zoloft 100 mg every morning Continue Divalproex 1,000 MG QPM Lorazepam 0.5 MG Q6P PRN
[2017-09-28 19:58] VITALS: BP 155/84
[2017-09-29 07:39] VITALS: BP 133/88
--- NOTE | 2017-09-29 13:56 | CP SOUTH PROGRESS NOTE PSYCH ---
Psych (Inpt) Progress Note Progress Note The pt.'s progress, inpatient treatment plan, and aftercare plans were discussed in the treatment planning meeting (team members: DISASTER RESPONSE DIRECTOR, RN, OTR/L, and Psychiatrist) Mental Status: Ed was alert and oriented x3. He denied side effects from medications. Ed reported feeling depressed (not any worse, not any better). He seemed to have less of a negative outlook on life. He's somewhat more coherent. He is showing better attention and concentration. ED denied wishing or thinking of suicide. He denies thoughts of violence or homicide. Although Ed denies audio hallucinations, I have suspicions that he may be hallucinating Assessment Update: Jorge Lindsey (: 1965) is a 52-year-old single white male who was admitted following decompensation into an acute psychotic state. Since his admission to the inpatient pyschiatric unit on 08/29/2017, Jorge has shown slow improvement. Although he is still struggling with a thought disorder and paranoid delusions ( and may be audio hallucinations), he is showing slow mild improvement Diagnosis: Schizoaffective disorder, bipolar type, current episode mixed with psychotic symptoms Treatment Plan Update: 1) Continue Zyprexa 20 mg PO at bedtime. 2) Continue Zoloft 100 mg every morning Continue Divalproex 1,000 mg QPM Lorazepam 0.5 mg Q6P PRN
--- NOTE | 2017-09-29 15:24 | SOCIAL WORKER PROG NOTE PSYCH ---
Social Work Progress Note Progress Note This headline writer met [facility] patient. He reported his mood as "pretty good". We discussed housing options, and patient stated that he may contact Lui with [facility] to interest of learning about other possible resources (patient does not want to return to [facility]). Patient is prepared to go to [facility] if needed. Patient stated that he has obtained a number for efficiency housing and will call between 5pm and 9pm today. This headline writer and patient also discussed CCT. He is agreeable to reviewing the [facility] later today, at which time he will decide if he would like to sign the ABUNDIO.
[2017-09-29 20:15] VITALS: BP 136/83
[2017-09-30 07:58] VITALS: BP 153/84
--- NOTE | 2017-09-30 09:09 | CP SOUTH PROGRESS NOTE PSYCH ---
Psych (Inpt) Progress Note Progress Note Vital Signs Date Time Temp Pulse B/P B/P 09/30 075 96.3 80 153/84 09/29 2014 98.9 73 136/83 The pt.'s progress, inpatient treatment plan, and aftercare plans were discussed in the treatment planning meeting (team members: FORGE TENDER, RN, OTR/L, and Psychiatrist) Mental Status: Ed sounded better today (i.e. less irritable, less depressed). He was alert and oriented to time, place, and person. He denied side effects from current medications. Ed reported feeling "more hopeful" today/less negative outlook on life. He denied wishing or thinking of suicide. He was somewhat more coherent and showed better attention and concentration. ED denied feeling paranoid, denied thoughts of violence or homicide. Ed denies audio hallucinations, I could not elicit specific delusions today Assessment Update: Jorge Lindsey (: 1965) is a 52-year-old single white male who was admitted to the inpatient pyschiatric unit on 08/29/2017. The reason for the admission was decompensation into an acute psychotic state soon after his discharge from this same unit. Jorge has shown noticeable improvement the past 24 hours. Although he is still struggling with symptoms and showing some signs, he is less thought-disordered, much less paranoid, and denying hallucinations. It has been free of thoughts of suicide for at least 5 days now. Diagnosis: Schizoaffective disorder, bipolar type, current episode mixed with psychotic symptoms Treatment Plan Update: 1) Continue Zyprexa 20 mg PO at bedtime. 2) Continue Zoloft 100 mg every morning 3) it continues to refuse to consider changing Depakote to lithium, therefore, continue Divalproex 1,000 mg QPM Lorazepam 0.5 mg Q6P PRN
--- NOTE | 2017-09-30 18:06 | SOCIAL WORKER PROG NOTE PSYCH ---
Social Work Progress Note Progress Note This copy writer left vm for Lore Donnelly at [facility] ([phone]) at 11:07am. This copy writer attempted to reach Linda at [facility], however, she was out of the office. This copy writer met with patient. He described his mood as "stable" and is feeling sad due to being homeless. He stated that he has been in contact with his sister and his friend, Dano, whom he finds to be supportive. Patient stated that he plans to try to reach Lore Donnelly on Tuesday and was informed that this copy writer left a vm for her earlier today. He was also informed that this copy writer will attempt to reach Linda next week. Patient denied SI/HI/AH/VH. He seems motivated to identify housing options. He presented in better spirits today, less depressed and less irritable.
[2017-09-30 20:01] VITALS: BP 154/91
[2017-10-01 08:05] VITALS: BP 144/91
--- NOTE | 2017-10-01 13:51 | CP SOUTH PROGRESS NOTE PSYCH ---
Psych (Inpt) Progress Note Progress Note Include the following elements, when applicable: Involvement in the active treatment of the patient with behavioral observations of the patient and the patient's response to the treatment. Review of the ongoing treatment process in the context of the treatment plan. Indication of how multi-disciplinary staff members are carrying out the treatment plan. Plans for future interventions and recommendations for revision of the treatment plan. Liaison with other physicians/providers. Progress Note: Still in bed and isolative much of the day, but appears less grossly thought disordered overall and brighter in affect. Stated that he doesnt want supervised housing because he will lose his independence, I attempted to discuss with him that when he is independent he does not do well, that some level of assistance would be helpful for him to stay out of trouble. He was still focused on living on his own. Apart from that, no gross other issues. MSE: short middle aged man, fair grooming. no tic or tremor. His eye contact is fair. He has mild psychomotor slowing. Mood is neutral to down, affect is constricted. His speech is normal. Thought process is concrete, linear. States that he is depressed but not suicidal. No delusions elicited. Insight remains impaired, judgment adequate in the structured hospital setting. A: 52 year old man with extensive psychiatric history, past severe psychotic episodes, current episode depressed but improving. He continues to be isolative, encouraged him to socialize and participate in group programming, overall he is doing better compared to several weeks ago and thought disorder is improved significantly. Plan: continue current plan of care.
[2017-10-01 19:44] VITALS: BP 155/88
[2017-10-02 09:02] VITALS: BP 114/74
--- NOTE | 2017-10-02 09:12 | CP SOUTH PROGRESS NOTE PSYCH ---
Psych (Inpt) Progress Note Progress Note Include the following elements, when applicable: Involvement in the active treatment of the patient with behavioral observations of the patient and the patient's response to the treatment. Review of the ongoing treatment process in the context of the treatment plan. Indication of how multi-disciplinary staff members are carrying out the treatment plan. Plans for future interventions and recommendations for revision of the treatment plan. Liaison with other physicians/providers. Progress Note: Up this morning and attending morning group. Stated that he still feels down and depressed but that this is unchaged. Has not showered in a few days - said that "when you get older, your body doesn't produce enough oils to shower every day, I'll shower every few days, or every third day if I'm not doing anything." Discussed hygiene and encouraged him to at least shower every other day. He said he was "due" for one and would shave as well today. No other issues. MSE: short middle aged man, malodorous, poor grooming. Mild psychomotor slowing, no tic or tremor. His eye contact is fair. Mood is neutral to down, affect is constricted. His speech is normal. Thought process is goal directed. No notable delusional statements elicited. Depressed mood but no evidence of thoughts to harm himself, or anyone else. Not hallucinating and no internal preoccupation. Insight remains impaired, judgment adequate in the structured hospital setting. A: 52 year old man with extensive psychiatric history, past severe psychotic episodes, current episode depressed but improving. He has been trying to attend groups, though is isolative much of the day. Thought disorder is improving as well. Plan: continue current plan of care. BP has been running high (this morning SBP ~115 but overall SBP has been between 130s-150 last few days) - consider adjusting HCTZ or lisinopril ?
[2017-10-02 19:59] VITALS: BP 148/85
[2017-10-03 08:26] VITALS: BP 141/89
--- NOTE | 2017-10-03 08:58 | CP SOUTH PROGRESS NOTE PSYCH ---
Psych (Inpt) Progress Note Progress Note I reviewed Dr. Burnham's notes for the weekend of 10/01 and 10/02 The pt.'s progress, inpatient treatment plan, and aftercare plans were discussed in the treatment planning meeting (team members: CONTROLLER OPERATIONS AND HR MANAGER, RN, OTR/L, and Psychiatrist) Vital Signs Date Time Temp Pulse B/P B/P O2 10/03 0924 80 141/89 10/03 0826 97.2 80 141/89 Mental Status: Ed seemed to be in good spirits and able to smile appropriately. He reported feeling less depressed and less irritable (his own words). He was alert and oriented to time, place, and person. He denied side effects from current medications. Ed reported feeling "hopeful" and denied wishing or thinking of suicide. He was more coherent and showed better attention and concentration. ED denied feeling paranoid, denied thoughts of violence or homicide. Ed denies audio hallucinations, I could not elicit specific delusions today Assessment Update: Jorge Lindsey (: 1965) is a 52-year-old single white male who was admitted to the inpatient pyschiatric unit on 08/29/2017. The reason for his admission was decompensation into an acute psychotic state soon after his discharge from this same unit. Since his current admission, Jorge has shown slow but noticeable improvement ( more coherent/less thought-disordered, much less paranoid, and currently denying hallucinations. He has been free of thoughts of suicide for at least 8 days now. Diagnosis: Schizoaffective disorder, bipolar type, current episode mixed with psychotic symptoms Treatment Plan Update: 1) Continue Zyprexa 20 mg PO at bedtime. 2) Continue Zoloft 100 mg PO every morning 3) Continue Divalproex 1,000 mg QPM Lorazepam 0.5 mg Q6P PRN anxiety/agitation/insomnia continue Divalproex 1,000 mg QPM Lorazepam 0.5 mg Q6P PRN
--- NOTE | 2017-10-03 17:58 | SOCIAL WORKER PROG NOTE PSYCH ---
Social Work Progress Note Progress Note This copywriter received a call from Linda at [facility]. She stated that they had spoke with [facility] and may have other housing resources that would be more permanent as ICC continues to be pursued. She was also informed that discharge may occurr at the end of this week. Linda stated that she would ask Lore Donnelly, wrapper caser, to contact with copywriter with housing updates. This copywriter and Maria Alejandra Walker met with the patient. He stated that he is exploring other housing options, including an efficiency apartment in [place]. He stated that he has also spoken with his sponsor who has identified a restaurant managing partner housing option should he need one if [facility] has a bed, but there is a wait. Patient was also informed of the conversation with Linda at [facility] and that this copywriter is waiting to hear from Lore Donnelly. Patient described his mood as "good" and denied SI/HI/AH/VH. He reported having "hopeful" thoughts. Patient presented with a positive outlook. He stated that he spoke with Dr. Kenyon about possible discharge at the [facility] ot his week. 2:50pm This copywriter spoke with Lore Donnelly, [facility] wrapper caser. At her request, this copywriter is exploring when DSS needs to be contacted regarding patient's hospitalization. A message has been left for Marci Rowland regarding this. Lore stated that she continues to explore housing options and is waiting to hear from an individual at [facility] regarding other housing. She will continue to pursue this as she had not received a call back. She was informed that patient may discharge at the end of this week. 5:56pm This copywriter left vm for Lore Donnelly ([phone], ext. [phone]) to inform that (per Marci Rowland) we are unaware of an obligation to report to [facility].
[2017-10-03 19:31] VITALS: BP 147/93
[2017-10-04 08:44] VITALS: BP 108/74
--- NOTE | 2017-10-04 14:03 | CP SOUTH PROGRESS NOTE PSYCH ---
Psych (Inpt) Progress Note Progress Note The pt.'s progress, inpatient treatment plan, and aftercare plans were discussed in the treatment planning meeting (team members: BOB, RN, OTR/L, and Psychiatrist) Mental Status: Ed was still in bed by 2 PM, he reported that he did get up for breakfast and did get up for lunch but he went back to sleep. He reported that he is starting to feel a little bit better and less depressed. He reported that he has not been feeling irritable. He was alert and oriented to time, place, and person. He denied side effects from current medications. Ed denied feeling hopeless or worthless, he denied wishing or thinking of suicide. He was more coherent and showed better attention and concentration. ED denied feeling paranoid, denied thoughts of violence or homicide. Ed denies hallucinations, and I could not elicit specific delusions. Treatment Plan Update: 1) Continue Zyprexa 20 mg PO at bedtime. 2) Continue Zoloft 100 mg PO every morning 3) Reduce Divalproex to 750 mg QPM 4) Continue Lorazepam 0.5 mg Q6P PRN anxiety/agitation/insomnia
--- NOTE | 2017-10-04 15:37 | SOCIAL WORKER PROG NOTE PSYCH ---
Social Work Progress Note Progress Note Patient is in reasonably good mood today. Patient is looking forward to discharge, but he continues to apprehensive about living situation. Patient reports that he feels he has benefitted from being here, and has not minded that it has taken some time to to this point. Patient is hopeful that he can wind up living in [place] and has put his name in with [facility], but said that there is nothing more that I could help him with today,
--- NOTE | 2017-10-04 17:30 | SOCIAL WORKER PROG NOTE PSYCH ---
Social Work Progress Note Progress Note This newspaper writer met with patient. He stated that he has found an efficiency apartment in [place], which he hopes to move into on 10/15/17. He stated that he was qouted $750/month including electric. Patient was agreeable to speaking with Lore Donnelly at [facility] about this and a vm was left for her. Patient denied SI/HI/AH/VH.
[2017-10-04 20:00] VITALS: BP 149/81
[2017-10-05 10:19] VITALS: BP 132/89
--- NOTE | 2017-10-05 14:07 | CP SOUTH PROGRESS NOTE PSYCH ---
Psych (Inpt) Progress Note Progress Note The pt.'s progress, inpatient treatment plan, and aftercare plans were discussed in the treatment planning meeting (team members: HAZMAT TECHNICIAN, RN, OTR/L, and Psychiatrist) Vital Signs Date Time Temp Pulse Resp B/P B/P O2 10/05 1019 97.3 77 132/89 10/05 1018 98.6 82 18 149/81 10/04 2000 98.6 82 149/81 Mental Status: Ed was reported that he is starting to feel better (less depressed). He reported that he has not been feeling irritable. He was alert and oriented to time, place, and person. He denied side effects from current medications. Ed denied feeling hopeless or worthless, he denied wishing or thinking of suicide. He was more coherent and showed better attention and concentration. Edward denied feeling paranoid, denied thoughts of violence or homicide, and denies hallucinations. There were no delusions during the interview. Treatment Plan Update: 1) Continue Zyprexa 20 mg PO at bedtime. 2) Continue Zoloft 100 mg PO every morning 3) Continue Divalproex 750 mg QPM 4) Continue Lorazepam 0.5 mg Q6P PRN anxiety/agitation/insomnia
--- NOTE | 2017-10-05 18:08 | SOCIAL WORKER PROG NOTE PSYCH ---
Social Work Progress Note Progress Note This com writer spoke with Lore Donnelly at [facility] ([phone], ext. [phone]). She asked that this com writer relay the message to the patient that she addressed his bills ( patient was informed). She was informed of the patient's interest in an efficiency apartment in [place] with patient's hopeful move in date as 10/15/17. She was informed that patient is interested in Crisis and Respite, specifically in [place]. Lore stated that she is alos exploring the possibility of housing in [place] and will contact this com writer with updates. This com writer spoke with Linda Ingram at [facility] regarding the above information discussed with Lore. She confirmed that the [place] housing option continues to be explored. Mel stated that they will continue to explore [facility] as well, especially if the [place] option becomes available. She stated that she will be out of the office tomorrow, however, this com writer could speak with Geno in her absence if needed. We also discussed treatment options after discharge, including IOP at . This com writer met with patient and informed him of the above two conversations with Linda and Lore. He stated that he would contact Lore by phone this afternoon to discuss the [place] apartment option with her further. He described his mood as "pretty good." The patient and I discussed IOP. While initially hesitant, he identified ways in which this could be helpful and effective and was agreeable to a referral to . He stated that he would continue to work with Lore Donnelly for case management and return to [facility] once completing the IOP. He was also informed that the [facility] bed continues to be considered and he appeared agreeable to keeping this as an option as well. Patient presented in good spirits today and denied SI/HI/hallucinations.
[2017-10-05 19:45] VITALS: BP 125/76
[2017-10-06 07:33] VITALS: BP 127/77
--- NOTE | 2017-10-06 08:06 | CP SOUTH PROGRESS NOTE PSYCH ---
Psych (Inpt) Progress Note Progress Note The pt.'s progress, inpatient treatment plan, and aftercare plans were discussed in the treatment planning meeting (team members: CASH REGISTER SERVICER, RN, OTR/L, and Psychiatrist) Vital Signs: Date Time Temp Pulse Resp B/P 10/06 0733 96.8 72 127/77 10/05 1944 98.0 84 125/76 Mental Status: Ed looked to be in good spirits this morning. He was smiling appropriately. He reported that he feels "alive", starting to feel better amd much less depressed. He denied feeling irritable. He was alert and oriented to time, place, and person. He denied side effects from current medications. Ed denied feeling hopeless or worthless, he denied wishing or thinking of suicide. He was more coherent and showed better attention and concentration. Edward denied feeling paranoid, denied thoughts of violence or homicide, and denies hallucinations. There were no delusions during the interview. Treatment Plan Update: 1) Continue Zyprexa 20 mg PO at bedtime. 2) Continue Zoloft 100 mg PO every morning 3) Continue Divalproex 750 mg QPM Possible discharge tomorrow. Possible discharge tomorrow
--- NOTE | 2017-10-06 16:15 | SOCIAL WORKER PROG NOTE PSYCH ---
Social Work Progress Note Progress Note This technical proposal writer met with patient. He stated that he will contact his sponsor about housing options and this technical proposal writer will contact Lore Donnelly at [facility] (a vm was left for Lore following this conversation, ). Patient reported his mood as "signal helper" and denied SI/HI/hallucinations/PI. He discussed feeling overall improvement with mood and symptoms since he was first admitted and is looking forward to seeing the new apartment. Patient stated that he will also call [facility] to schedule a CAN assessment. He is agreeable to [facility].
[2017-10-06 19:48] VITALS: BP 155/88
[2017-10-07 07:34] VITALS: BP 136/92
--- NOTE | 2017-10-07 08:38 | CP SOUTH PROGRESS NOTE PSYCH ---
Psych (Inpt) Progress Note Progress Note The pt.'s progress, inpatient treatment plan, and aftercare plans were discussed in the treatment planning meeting (team members: WATER TAXI DRIVER, RN, OTR/L, and Psychiatrist) Mental Status: Ed was alert, and oriented to time, place, and person. He denied feeling paranoid, denied thoughts of violence or homicide, and denies hallucinations. There were no delusions during the interview. He seemed to be in good spirits this morning. He was smiling appropriately, reported that he feels "hopeful" and not depressed. He denied side effects from current medications. Ed denied feeling hopeless or worthless, he denied wishing or thinking of suicide. He was more coherent and showed better attention and concentration. Treatment Plan Update: 1) Continue Zyprexa 20 mg PO at bedtime. 2) Continue Zoloft 100 mg PO every morning 3) Continue Divalproex 750 mg QPM discharge postponed because of placement issues. 2) Continue Zoloft 100 mg PO every morning 3) Continue Divalproex 750 mg QPM Possible discharge tomorrow.
[2017-10-07] MEDS ORDERED: TRICOR145 M1 PO (08:43)
[2017-10-07] MEDS ORDERED: DEPAKOTE ER250 M1 PO (08:43)
[2017-10-07] MEDS ORDERED: AMLODIPINE BESYL5 M1 PO (08:43)
[2017-10-07] MEDS ORDERED: OLANZAPINE10 M1 PO (08:45)
[2017-10-07] MEDS ORDERED: ZOLOFT100 M1 PO (08:45)
--- NOTE | 2017-10-07 16:54 | SOCIAL WORKER PROG NOTE PSYCH ---
Social Work Progress Note Progress Note This adjusto writer operator met with patient and discussed discharge. Patient stated that he has a CAN assessment scheduled for 10/13/17 () between 10am and 1pm. He stated that he will view the [facility] apartment on 10/15/17. He stated that he plans to go to a friend's house to see if he can stay and if not, he will go to the [facility] emergency fdc in [place]. Patient stated that his friend offered him to stay with him, however last discussed this about 1 year ago and has been unable to reach him recently due to not having the phone number while on [facility]. He also stated that he was unable to obtain the number until he gets his cell phone fixed. Patient stated that he would like a referral to [facility] and will continue with case management through Care with Lore Donnelly. Patient denied SI/HI/hallucinations and identified a safety plan to "call my sponsor, go to a meeting, go to the ER and call the crisis and warm line numbers." This adjusto writer operator reviewed the above conversation with Pauly Hicks LCSW. Due to concerns about this plan, the plan was then reviewed with Dr. Kenyon. Per this conversation, if unable to confirm a solid place to stay (i.e. the friend's home) or if the crisis and respite locations do not have any available beds, the discharge will be delayed and revisited on Tuesday. Patient was informed and agreeable to this plan. Ultimately, the discharge was delayed. Patient will attempt to identify a way to obtain his friend's number over the weekend.
[2017-10-07 20:03] VITALS: BP 157/82
[2017-10-08 07:36] VITALS: BP 121/75
--- NOTE | 2017-10-08 08:36 | CP SOUTH PROGRESS NOTE PSYCH ---
Psych (Inpt) Progress Note Progress Note Vital Signs Date Time Temp Pulse B/P 10/08 0736 97.3 71 121/75 10/07 2002 98.7 92 157/82 Mental Status: Ed reported that he feel disappointed about not leaving yesterday. He was was alert, and oriented to time, place, and person. He denied feeling paranoid, denied thoughts of violence or homicide, and denies hallucinations. There were no delusions during the interview. He seemed to be in good spirits this morning. He smiled appropriately, he reported reported that although he feels disappointed yesterday his mood is still reasonably okay and not that depressed. Ed denied feeling hopeless or worthless, he denied wishing or thinking of suicide. He was more coherent and showed better attention and concentration. Medication monitoring:: He denied side effects from current medications. Treatment Plan Update: 1) Continue Zyprexa 20 mg PO at bedtime. 2) Continue Zoloft 100 mg PO every morning 3) Continue Divalproex 750 mg QPM
[2017-10-08 20:08] VITALS: BP 145/91
[2017-10-09 07:40] VITALS: BP 117/81
--- NOTE | 2017-10-09 08:34 | CP SOUTH PROGRESS NOTE PSYCH ---
Psych (Inpt) Progress Note Progress Note Vital Signs Date Time Temp Pulse Resp B/P B/P Pulse O2 FiO2 10/09 0743 97.7 66 18 117/81 10/09 0640 97.7 66 11781 10/09 2007 98.7 81 145/91 Mental Status: Ed reported that he feels "good" today, he was alert, and oriented to time, place, and person. He denied feeling paranoid, denied thoughts of violence or homicide, and denies hallucinations. There were no delusions during the interview. He seemed to be in good spirits this morning. He smiled appropriately, he reported reported that although he feels disappointed yesterday his mood is still reasonably okay and not that depressed. Ed denied feeling hopeless or worthless, he denied wishing or thinking of suicide. He was more coherent and showed better attention and concentration. Medication monitoring:: He denied side effects from current medications. Treatment Plan Update: 1) Continue Zyprexa 20 mg PO at bedtime. 2) Continue Zoloft 100 mg PO every morning 3) Continue Divalproex 750 mg QPM
[2017-10-09 19:38] VITALS: BP 131/82
[2017-10-10 07:36] VITALS: BP 133/84
[2017-10-10 08:15] VITALS: BP 133/84
--- NOTE | 2017-10-10 12:44 | DISCHARGE SUMMARY REPORT-PSYCH ---
Visit Information Visit Dates/Diagnosis' Admission Date: 08/29/17 Discharge Date: 10/10/17 Reason for Admission: Increasing psychosis shortly after discharge from this facility. Psy Discharge Primary Diag: Schizoaffective Disorder Hospital Course Significant Lab Findings: Lab WBC 12.2 /CUMM H 08/28/17 1825 Valproic Acid 27.3 ug/mL L 08/28/17 1825 Valproic Acid 43.8 ug/mL L 09/07/17 0701 Course Complications: None Consultations: Seen by hospitalist for full review of systems and physical examination Allergies: Coded Allergies: oak (Severe, ANAPHYLAXIS 07/15/17) tree and shrub pollen (Severe, DIFFICULTY BREATHING 07/15/17) ethyl alcohol (UNKNOWN 09/16/17) ETHANOL oxycodone (MAKES ME WACKY 07/15/17) Hospital Course/TX Response: On admission the patient's risperidone was reduced and stopped. Olanzapine was increased to an ultimate dose of 20 mg daily.. Depakote was continued. Potassium was low and was replaced. HCTZ was reduced to 25 mg daily. The patient was acutely psychotic and paranoid and was restrained both chemically and physically on admission. His paranoia was slow to respond to treatment. He also had a significant thought disorder. During the course of his admission he developed symptoms of depression and was started on sertraline. The patient was on valproate prior to admission. Risks and benefits of lithium were discussed with him and he declined starting that medication. He also declined any interest in a long-acting injectable medication. Slowly the patient improved. There is some issues regarding his housing which delayed his discharge. He was scheduled for discharge on October 07 but as his housing arrangement was not secured this was postponed. The patient is seen by me for the first time today prior to discharge. He presented as pleasant, euthymic, alert and oriented 3. Eye contact was good. He had some appropriate anxiety about discharge. He was not suicidal or homicidal. He remained motivated to continue sobriety from alcohol but elected to resume smoking on discharge. He will stay with his "sponsee" for a time and has housing from October 15. Please see licensed clinical social worker's note for details. The patient was not psychotic at the time of discharge. He was tolerating his medications well with no side effects and was aware of potential side effects of his medications. Discharge HBIPS - Tobacco Use Treatment Offered Post DC Medications Offered: Script Given-See Med List Post DC Tobacco Treatment Plan: Refused Tobacco Tx Pgm - EtOH/Drug Use D/O Treatment Offered Post DC Medications Offered: NA-No EtOH/Drug Use D/O Post DC EtOH/SubAbuse [place] Plan: NA-No EtOH/Drug Use D/O Metabolic Screening - Screen if on a Neuroleptic Medication - Metabolic screening should include: - Blood Pressure, BMI, Glucose or Hgb A1c, & a - Lipid profile from within the past 365 days. Metabolic Screening () Not Applicable, patient not on a neuroleptic. OR () Patient on a neuroleptic(s) . Enter below results for Hemoglobin A1C, and lipid panel if obtained during the last 365 days. BMI: 26.600 Blood Pressure: 133/84 Laboratory Results From [facility] (If applicable): [On August 14, 2017: Cholesterol 111, triglycerides 99, LDL 52, HDL 40, glycosylated hemoglobin 5.3] Discharge Instructions General Discharge Information Multiple Neuroleptics: () Not Applicable OR Document below three failed attempts at monotherapy, or a plan to taper to monotherapy, or augmentation of Clozapine. () Discharge Diet Regular Discharge Activity As Tolerated DC Disposition: Discharge with appointments as outlined below Referrals Ordered Referrals Intensive Outpt Psychiatry 10/10/[address] [place] [id number] [facility] [address] [place], [place] [phone] Intake Appointment: 10/10/17, at 1:15pm [facility] Ed 10/12/[address] [place] [address] [phone] Individual therapy appointment: 10/12/17, at 4pm with Adrianne Joyce LCSW [address] [address] [phone] Patient will speak with Lore Donnelly, outsole caser, to schedule an appointment. Provider Referral 10/19/17 For Providers: [[facility]] For Groups: [Smoking Cessation Group] Smoking Cessation Group [facility] [address] [place], [place] [phone] Group meets every other Tuesday at 4pm Next group: 10/19/17, at 4pm Prescriptions Stop taking the following medications: Nicotine (Nicotine Patch) 21 MG/24 HOUR PATCH.TD24 On the skin DAILY Qty = 15 Nicotine (Nicorelief) 2 MG GUM ORAL EVERY 2 HOURS NEEDED as needed for SMOKING CRAVING Qty = 90 Fenofibrate Nanocrystallized (Fenofibrate) 145 MG TABLET ORAL DAILY Qty = 90 Divalproex Sodium (Divalproex Sodium ER) 500 MG TAB.ER.24H ORAL Every night Qty = 60 Hydrochlorothiazide (Hydrochlorothiazide) 50 MG TABLET ORAL DAILY Qty = 30 Montelukast Sodium (Montelukast Sodium) 10 MG TABLET ORAL DAILY Qty = 30 Risperidone (Risperdal) 2 MG TABLET ORAL SEE INSTRUCTIONS Qty = 30 Continue taking these medications: Amlodipine Besylate (Amlodipine Besylate) 5 MG TABLET 1 Tablet ORAL DAILY Qty = 30 Comments: Last Taken:10/10/17 Time:8AM This prescription has been renewed Sertraline HCl (Zoloft) 100 MG TABLET 100 Milligram ORAL DAILY Qty = 30 Comments: Last Taken:10/10/17 Time:8AM This prescription has been renewed Start taking the following new medications: Fenofibrate Nanocrystallized (Tricor) 145 MG TABLET 145 Milligram ORAL DAILY Qty = 30 No Refills Comments: Last Taken:10/10/17 Time:8AM Olanzapine (Olanzapine) 10 MG TABLET 20 Milligram ORAL AT BEDTIME Qty = 30 No Refills Comments: Last Taken:10/09/17 Time:9PM Divalproex Sodium (Depakote ER) 250 MG TAB.ER.24H 3 Tablet ORAL Every night Qty = 45 No Refills Comments: Last Taken:10/09/17 Time:9PM Studies Pending at Discharge None Copies To: .
--- NOTE | 2017-10-10 12:56 | Patient Discharge Instructions ---
Psych Discharge Inst General Discharge Information Reason for Admission: INCREASED PSYCHOSIS Psy Discharge Primary Diag+ Schizoaffective Disorder Summary Tests/Major Procedures VPA level low at 43.8 10/10 Studies Pending at DC: none Patient Instructions Contact Information Your Psychiatrist on [facility] was Rip KEY,Vera * If you are experiencing an emergency related to this hospitalization, please call [phone] to contact the treating psychiatrist or the psychiatrist-on- call. * To Request a copy of your medical records, please contact the Medical Records Department at [phone]. * To request results of studies pending at the time of discharge, please call [phone]. * Continue your Medications until directed to stop by your Healthcare provider. General Medication Information Please continue to take your new medications and your continued home medications , unless otherwise indicated on your discharge medication list, or unless directed by your MD or MANAGER AGRICULTURE to stop them. Special Instructions Diet Regular Activity As Tolerated - Tobacco Use Treatment Offered Post DC Medications Offered: Script Given-See Med List Post DC Tobacco Treatment Plan: Refused Tobacco Tx Pgm - EtOH/Drug Use D/O Treatment Offered Post DC Medications Offered: NA-No EtOH/Drug Use D/O Post DC EtOH/SubAbuse [place] Plan: NA-No EtOH/Drug Use D/O Advance Directives Does the Patient have Medical Advance Directives No/Per pt req info given Does Pt have Psychiatric Advance Directives? No/Per pt req info provid Does Patient have a Designated Surrogate Decision Maker: No Information About Psychiatric Advance Directives Provided? Yes Discharge Plan Post Hospital Treatment Plan: intake at [facility] this afternoon at 1.15pm [facility] individual therapy 10/12
--- NOTE | 2017-10-10 18:24 | SOCIAL WORKER PROG NOTE PSYCH ---
Social Work Progress Note Progress Note This typewriter assembly and parts inspector met with patient. He discussed looking forward to discharge and denied SI/HI/hallucinations. He identified a safety plan in which he would "tell my sponsor." He also accepted the crisis numbers and warm lines upon discharge and was agreeable to utilizing them. Patient and this typewriter assembly and parts inspector spoke with Arnaldo Jalencassiusemanuel, whom he will be staying with upon discharge. Arnaldo confirmed that the patient may stay with him until he moves into the new apartment until 10/15/17 or longer if needed. Arnaldo stated that he has known the patient for 10+ years. He does not have any concerns about discharge today and was informed of the discharge plan ([facility] and case mangement). Arnaldo agreed to provide transportation after the patient has completed the [facility] intake today, which the patient accepted for 1:15pm. 10:41am - patient and this typewriter assembly and parts inspector left a vm for Lroe Donnelly at [facility] ) with the discharge plans 10:42am - patient and this typewriter assembly and parts inspector spoke with Linda at [facility] ([phone]) regarding discharge plans. he also accepted an individual appointment with Adrianne Mobley (10/12 at 4pm). Linda agreed to inform Lore Donnelly of the discharge information. Patient had expressed feeling stigmatized regarding being asked to provide UTox' s at [facility]. We discussed ways to manage this as well as ways to communicate his concerns with his [facility] clinician. He also asked that this typewriter assembly and parts inspector inform [facility] of his concerns. This typewriter assembly and parts inspector spoke adebayo Douglas at [facility] regarding this matter. Patient contacted this typewriter assembly and parts inspector by phone later in the afternoon to say that he had arrived at [facility]. He stated that he left a vm for Lore Donnelly regarding a case management appointment. He stated that, if needed, he can be contacted at [facility] ([phone]). Patient expressed gratitude for the treatment he received at and asked that this is relayed to the team. Faxed Referral(s) 1 Referred To: [facility] Transition of Care Documents sent: Health Summary Faxed to: [facility] Fax #: [phone] Faxed by: Maame Iglesias LCSW Date faxed: 10/10/17 Time Faxed: [phone] Faxed Referral(s) 2 Referred To: [facility] Transition of Care Documents sent: Health Summary Faxed to: Care Fax #: [phone] Faxed by: Maame Iglesias LCSW Date faxed: 10/10/17 Time Faxed: [phone]
== END 2017-10-10 13:28 | DRG 885 ==
LOC: ERH 17:53 → CP SOUTH 08-29 17:51 → ERHI 08-29 17:51 → ENTRNSPT 08-29 22:28 → EDTRNSPTSTS 08-29 22:39 → EDTRNSPT 08-29 22:39 → CP SOUTH 08-29 22:44 → CMPTRNSPT 08-29 22:50 → CP SOUTH 08-29 22:50 → CANRESERV 08-29 23:59 → ENRESERV 08-29 23:59 → CP SOUTH 08-30 10:21
PROVIDERS: Emergency Medicine
DX: F25.9 Schizoaffective disorder, unspecified (principal); Z78.1 Physical restraint status; I10 Essential (primary) hypertension; E78.5 Hyperlipidemia, unspecified; M54.89 Other dorsalgia
CPT/HCPCS: 36415; 71046; 80307; 82436; 96372; G0463; G0480; J0515; J1630; J2060